=== PATIENT | female | born 1950 | race Caucasian/White ===

== ENCOUNTER 2018-08-20 13:57 | Emergency (ER) | payer OTHER, MEDICAID ==
[~2018-08-20] VITALS: Ht 160 cm; Wt 90.7 kg
[~2018-08-20 13:57] MED LIST: FURO20TA; GABA100C9 PO; HYDR-1421; INSUPOW; LISI2.5T47 PO; TRAM50TA2 PO; TRIAPOW6; [UNRECOGNIZED DRUG - OTHER] PO; nitrostat SL
[2018-08-20 14:35] VITALS: BP 175/96
[2018-08-20] MEDS ORDERED: cefTRIAXone SOD 1,000 MG VL IM ONE (15:00)
[2018-08-20] MEDS ORDERED: TETANUS-DIPTH-ACEL PERTUSSIS 0.5ML SYRG IM ONE (15:00)
[2018-08-20] MEDS ORDERED: ACETAMINOPHEN 500 MG TAB PO ONE (15:30)
== END 2018-08-20 18:02 | disposition home or self-care (01) ==
LOC: ER 14:08
DX: L02.811 Cutaneous abscess of head [any part, except face] (principal); E11.9 Type 2 diabetes mellitus without complications; M19.90 Unspecified osteoarthritis, unspecified site; Z88.0 Allergy status to penicillin; Z79.4 Long term (current) use of insulin
CPT/HCPCS: 10060; 87075; 90471; 90715; 96372; 99283; J0696

== ENCOUNTER 2024-01-05 16:33 | Emergency (ER) | payer OTHER, MEDICAID ==
[~2024-01-05] VITALS: Ht 160 cm; Wt 54.5 kg
[~2024-01-05 16:33] MED LIST changes: +FURO1TAB33; -FURO20TA; +GABA-1308 PO; -GABA100C9 PO
--- NOTE | 2024-01-05 17:11 | ED.PDOC ---
General HPI Comments 73F BIBA w/ no prior HX associated to the c/c of right sided flank pain. Pt reports on the pain for being constant and for 2 months. Pt states that called EMS due from having a kidney infx, and she was also recently in [facility] PMHx of DM, CVA, Seizure, [place], Stent and HTN. Denies chills, fever, N/V/D, SOB, CP or other associated symptoms, modifiers, or recent injuries at this time. Chief Complaint: Flank Pain Time Seen by MD: 17:00 Primary Care Provider: UNKNOWN Reviewed notes: Nurses Notes, Tow Mate Notes, Medications, Allergies Allergies: Coded Allergies: Penicillins (Verified Allergy, 11/15/09) Home Meds Reported Medications Triamcinolone (Triamcinolone) Mcc Pow, 1 % BID 11/17/09 [nitrostat] No Conflict Check, 0.4 MG SL PRN 11/17/09 [aprorodine] No Conflict Check, 2.5 - 60 MG PO TID 11/17/09 Tramadol Hcl (Tramadol Hcl) 50 Mg Tab, 50 MG PO Q6HP 11/17/09 Lisinopril (Lisinopril) 2.5 Mg Tab, 20 MG PO DAILY 11/15/09 Gabapentin (Gabapentin) 100 Mg Cap, 300 MG PO TID 11/15/09 Hydrocodone-Acetaminophen (Vicodin) 1 Tab Tab, Q8HP 11/15/09 Furosemide (Lasix) 20 Mg Tb, QAM 11/15/09 Insulin (Insulin Human) Human Pow 11/15/09 Information Source: Patient Mode of Arrival: EMS Severity: Moderate Timing: Months Duration: Since onset Prehospital treatment: None Onset: Spontaneous Symptoms: None History of: None Location: (R) Flank associated signs and symptoms: Flank Pain Past Medical History PAST MEDICAL HISTORY: CVA, DM, High Lipids, HTN, NJ, Seizures Past Medical History (Other): Stent Surgical History: Denies all surgeries ELECTRICIAN WIRING History: No Pertinent ELECTRICIAN WIRING History Family History Family History: Reviewed,noncontributory to illness, Unknown Social History Smoker: Unknown Alcohol: Unknown Drugs: Unknown Lives In: Home Constitutional: denies: chills, diaphoresis, fatigue, fever, malaise, sweats, weakness, others EENTM: denies: blurred vision, double vision, ear bleeding, ear discharge, ear drainage, ear pain, ear ringing, eye pain, eye redness, hearing loss, mouth pain, mouth swelling, nasal discharge, nose bleeding, nose congestion, nose pain, photophobia, tearing, throat pain, throat swelling, voice changes, others Respiratory: denies: cough, hemoptysis, orthopnea, SOB at rest, shortness of breath, SOB with excertion, stridor, wheezing, others Cardiovascular: denies: chest pain, dizzy spells, diaphoresis, Dyspnea on exertion, edema, irregular heart beat, left arm pain, lightheadedness, palpitations, PND, syncope, others Gastrointestinal: denies: abdomen distended, abdominal pain, blood streaked bowels, constipated, diarrhea, dysphagia, difficulty swallowing, hematemesis, melena, nausea, poor appetite, poor fluid intake, rectal bleeding, rectal pain, vomiting, others Genitourinary: reports: flank pain; denies: abnormal vagina bleeding, burning, dyspareunia, dysuria, frequency, hematuria, incontinence, pain, , vagina discharge, urgency, others Neurological: denies: dizziness, fainting, headache, left sided numbness, left sided weakness, numbness, paresthesia, pre-existing deficit, right sided numbness, right sided weakness, seizure, speech problems, tingling, tremors, weakness, others Musculoskeletal: denies: back pain, gout, joint pain, joint swelling, muscle pain, muscle stiffness, neck pain, others Integumetry: denies: bruises, change in color, change in hair/nails, dryness, laceration, lesions, lumps, rash, wounds, others Allergic/Immunocompromised: denies: Difficulty Healing, Frequent Infections, Hives, Itching, others Hematologic/Lymphatic: denies: anemia, blood clots, easy bleeding, easy bruising, swollen glands, others Endocrine: denies: excessive hunger, excessive sweating, excessive thirst, excessive urination, flushing, intolerance to cold, intolerance to heat, unexplained weight gain, unexplained weight loss, others Psychiatric: denies: anxiety, bipolar disorder, depression, hopeless, panic disorder, schizophrenia, sleepless, suicidal, others All Other Systems: Reviewed and Negative Physical Exam General Appearance: Moderate Distress, Normal HEENT: Normal ENT Inspection, Pharynx Normal, TMs Normal Neck: Full Range of Motion, Non-Tender, Normal, Normal Inspection Respiratory: Chest Non-Tender, Lungs Clear, No Accessory Muscle Use, No Respiratory Distress, Normal Breath Sounds Cardiovascular: No Edema, No JVD, No Murmur, No Gallop, Normal Peripheral P ulses, Regular Rate/Rhythm Breast Exam: Deferred Gastrointestinal: No Organomegaly, Non Tender, No Pulsatile Mass, Normal Bowel Sounds, Soft Genitalia: Deferred Pelvic: Deferred Rectal: Deferred Extremities: Decreased range of motion (Left upper lower extremity), No calf tenderness, Normal capillary refill, Non-tender, No pedal edema Musculoskeletal : Apperance: Normal Neurologic: Alert, Motor Weakness (Left upper lower extremity), Normal Mood, No Sensory Deficits Cerebellar Function: NOT DONE Reflexes: NOT DONE Skin: Dry, Pallor, Warm Peripheral Pulses: 3+ Radial (R), 3+ Radial (L) Lymphatic: No Adenopathy Was a procedure done? Was a procedure done?: No Differential Diagnosis Kidney stone (Female): Musculoskeletal pain, Urinary obstruction, Urolithiasis X-Ray, Labs, Meds, VS Vital Signs Date Time Temp Pulse Resp B/P (MAP) Pulse Ox O2 Delivery O2 Flow Rate FiO2 01/05/24 16:44 98.0 82 18 160/70 (100) 99 Patient alert. Complaining of flank pain. Blood pressure elevated. Saturation pristine on room air. Heart rate within normal limits. Does not ambulate. Was given clonidine. History of CVA. Reviewed her previous visit. Explained to the patient. Continue cardiac monitoring. Time of 1ST Reevaluation: 17:30 Reevaluation 1ST: Unchanged Patient Education/Counseling: Diagnosis, Treatment, Prognosis Family Education/Counseling: No Family Present Departure 1 Departure Time of Disposition: 17:13 Impression: Primary Impression: Acute abdominal pain Additional Impression: Hypertensive urgency Disposition: ADMITTED INPATIENT Admit to: Med Surg Condition: Guarded Critical Care Note Critical Care Time?: Yes (45 min-critical care time only) Stability Stability form required: No Heart Score Heart Score: Heart Score Response (Comments) Value History Slightly Suspicious 0 EKG Normal 0 Age >65 2 Risk Factors >3 or Hx ASHD 2 Troponin Normal limit 0 Total 4 I personally scribed for TERESITA ROSAS MD ([email or web address]) on 01/05/24 at 17:11. Electronically submitted by Billy Martins ([email or web address]). TERESITA ROSAS MD Jan 05, 2024 17:11
[2024-01-05] MEDS: cloNIDine HCL 0.1 MG TAB PO ONE (17:52)
[2024-01-05 18:01] VITALS: BP 167/83; PULSE 69; RESP 18; O2SAT 98
[2024-01-05 18:05] LABS: Basophils # (auto) 0.1 10 ^3/uL (0-0.2); Basophils % (auto) 0.7 % (0.0-2.0); Eosinophils # (auto) 0.3 10 ^3/uL (0-0.8); Eosinophils % (auto) 3.5 % (0.0-7.0); Hematocrit 36.8 % (36.0-46.0); Hemoglobin 12.5 g/dL (12.2-16.2); Lymphocytes # (auto) 3.7 10 ^3/uL (0.4-5.4); Lymphocytes % (auto) 45.5 % (10.0-50.0); Mean Corpuscular Hemoglobin 31.7 pg (28.0-32.0); Mean Corpuscular Volume 93.3 fL (80.0-100.0); Monocytes # (auto) 0.6 10 ^3/uL (0-1.3); Monocytes % (auto) 7.4 % (0.0-12.0); Neutrophils # (auto) 3.5 10 ^3/uL (1.6-8.6); Neutrophils % (auto) 42.9 % (37.0-80.0); Nucleated Red Blood Cells % 0.2 %; Platelet Count (auto) 240 10^3/uL (140-450); Red Blood Cells 3.94 10^6/uL (4.0-5.20); Red Cell Distribution Width 14.1 % (11.8-14.3); White Blood Cell 8.2 10^3/uL (4.4-10.8)
[2024-01-05 18:11] LABS: Chloride 109 mmol/L (98-107); Potassium 4.1 mmol/L (3.5-5.1); Sodium 141 mmol/L (136-145)
[2024-01-05 18:12] LABS: Anion Gap 2 (5-15); Calcium 9.3 mg/dL (8.7-10.4); Carbon Dioxide 30 mmol/L (20-31)
[2024-01-05 18:17] LABS: BUN/Creatinine Ratio 16.1 (10.0-20.0); Blood Urea Nitrogen 20 mg/dL (9-23); Glucose 108 mg/dL (74-106)
== END 2024-01-05 18:44 | disposition left against medical advice (07) ==
LOC: EDBD 16:33 → ER 16:33
DX: I16.0 Hypertensive urgency (principal); R10.9 Unspecified abdominal pain; E11.9 Type 2 diabetes mellitus without complications; E78.5 Hyperlipidemia, unspecified; I10 Essential (primary) hypertension; Z88.0 Allergy status to penicillin; Z79.899 Other long term (current) drug therapy; Z86.73 Personal history of transient ischemic attack (TIA), and cerebral infarction without residual deficits
CPT/HCPCS: 36415; 80048; 84484; 85025

== ENCOUNTER 2024-02-06 07:38 | Emergency (ER) | payer OTHER, MEDICAID ==
[~2024-02-06] VITALS: Ht 167.6 cm; Wt 73.1 kg
--- NOTE | 2024-02-06 08:00 | ED.PDOC ---
Musculoskeletal HPI Comments A 73 YEAR OLD FEMALE PRESENTS TO THE ED WITH COMPLAINT OF PAIN STATUS POST FALL AND RIGHT GREAT TOE PAIN. PATIENT STATES SHE ACCIDENTALLY FELL AND LANDED ON HER RIGHT ARM ABOUT 3 WEEKS AGO AND IS NOW EXPERIENCING RIGHT UPPER ARM PAIN. PATIENT REPORTS SHE ACCIDENTALLY HIT HER RIGHT GREAT TOE ON A DOOR 3 DAYS AGO AND IS NOW EXPERIENCING RIGHT GREAT TOE PAIN. PATIENT DENIES HEAD INJURY, NECK INJURY, LOC, FEVER, CHILLS, SHORTNESS OF BREATH, CHEST PAIN, ABDOMINAL PAIN, NAUSEA, VOMITING, HEADACHE, OR OTHER COMPLAINTS. NO OTHER SYMPTOMS OR MODIFYING FACTORS AT THIS TIME. PATIENT IS ALERT, ORIENTED X 4, AND HAS STEADY GAIT. Chief Complaint: Upper Extremity Time Seen by MD: 07:52 Primary Care Provider: UNKNOWN Reviewed Notes: Nurses Notes, Steam Hammer Operator Notes, Medications, Allergies Allergies: Coded Allergies: Penicillins (Verified Allergy, 11/15/09) Home Meds Reported Medications Triamcinolone (Triamcinolone) Longterm Pow, 1 % BID 11/17/09 [nitrostat] No Conflict Check, 0.4 MG SL PRN 11/17/09 [aprorodine] No Conflict Check, 2.5 - 60 MG PO TID 11/17/09 Tramadol Hcl (Tramadol Hcl) 50 Mg Tab, 50 MG PO Q6HP 11/17/09 Lisinopril (Lisinopril) 2.5 Mg Tab, 20 MG PO DAILY 11/15/09 Gabapentin (Gabapentin) 100 Mg Cap, 300 MG PO TID 11/15/09 Hydrocodone-Acetaminophen (Vicodin) 1 Tab Tab, Q8HP 11/15/09 Furosemide (Lasix) 20 Mg Tb, QAM 11/15/09 Insulin (Insulin Human) Human Pow 11/15/09 Information Source: Patient, Emergency Med Personnel Mode of Arrival: EMS Location: Right Extremity Location: Arm, Foot Timing: Days Prehospital treatment: None Severity: Moderate Able to Move Extremity: Yes Bear Weight: Limited Pain: Moderate Hand Dominance: Right Mechanism: Other (FALL ) Circumstances: Fall Onset of Symptoms: During Exercise Symptoms: Pain DVT Risk Factors: NONE Last Tetanus: UTD Associated signs and symptoms: Arm pain, Foot pain Past Medical History PAST MEDICAL HISTORY: CVA, DM, High Lipids, HTN, PA, Seizures Surgical History: Denies all surgeries SUGAR COATING HAND History: No Pertinent SUGAR COATING HAND History Family History Family History: Reviewed,noncontributory to illness, Unknown Social History Smoker: Non-Smoker, Unknown Alcohol: Denies ETOH Use, Unknown Drugs: Denies Drug Use, Unknown Lives In: Home Constitutional: denies: chills, diaphoresis, fatigue, fever, malaise, sweats, weakness, others EENTM: denies: blurred vision, double vision, ear bleeding, ear discharge, ear drainage, ear pain, ear ringing, eye pain, eye redness, hearing loss, mouth pain, mouth swelling, nasal discharge, nose bleeding, nose congestion, nose pain, photophobia, tearing, throat pain, throat swelling, voice changes, others Respiratory: denies: cough, hemoptysis, orthopnea, SOB at rest, shortness of breath, SOB with excertion, stridor, wheezing, others Cardiovascular: denies: chest pain, dizzy spells, diaphoresis, Dyspnea on exertion, edema, irregular heart beat, left arm pain, lightheadedness, palpitations, PND, syncope, others Gastrointestinal: denies: abdomen distended, abdominal pain, blood streaked bowels, constipated, diarrhea, dysphagia, difficulty swallowing, hematemesis, melena, nausea, poor appetite, poor fluid intake, rectal bleeding, rectal pain, vomiting, others Genitourinary: denies: abnormal vagina bleeding, burning, dyspareunia, dysuria, flank pain, frequency, hematuria, incontinence, pain, , vagina discharge, urgency, others Neurological: denies: dizziness, fainting, headache, left sided numbness, left sided weakness, numbness, paresthesia, pre-existing deficit, right sided numbness, right sided weakness, seizure, speech problems, tingling, tremors, weakness, others Musculoskeletal: reports: joint pain, joint swelling, muscle pain; denies: back pain, gout, muscle stiffness, neck pain, others Integumetry: denies: bruises, change in color, change in hair/nails, dryness, laceration, lesions, lumps, rash, wounds, others Allergic/Immunocompromised: denies: Difficulty Healing, Frequent Infections, Hives, Itching, others Hematologic/Lymphatic: denies: anemia, blood clots, easy bleeding, easy bruising, swollen glands, others Endocrine: denies: excessive hunger, excessive sweating, excessive thirst, excessive urination, flushing, intolerance to cold, intolerance to heat, u nexplained weight gain, unexplained weight loss, others Psychiatric: denies: anxiety, bipolar disorder, depression, hopeless, panic disorder, schizophrenia, sleepless, suicidal, others All Other Systems: Reviewed and Negative Physical Exam General Appearance: No Apparent Distress, Obese HEENT: Normal ENT Inspection, PERRL/EOMI, Pharynx Normal, TMs Normal Neck: Full Range of Motion, Non-Tender, Normal, Normal Inspection Respiratory: Chest Non-Tender, Lungs Clear, No Accessory Muscle Use, No R espiratory Distress, Normal Breath Sounds Cardiovascular: No Edema, No JVD, No Murmur, No Gallop, Normal Peripheral Pulses, Regular Rate/Rhythm Breast Exam: Deferred Gastrointestinal: No Organomegaly, Non Tender, No Pulsatile Mass, Normal Bowel Sounds, Soft Genitalia: Deferred Pelvic: Deferred Rectal: Deferred Extremities: Decreased range of motion, No calf tenderness, Normal capillary refill, No pedal edema, Swelling (TENDERNESS AND MILD SWELLING ON RIGHT FOOT, TOES REGION, NO BONY TENDERNESS AND DEFORMITY. ), Tender (AND MILD CONRUSION ON RIGHT ARM, NO BONY TENDERNESS, SWELLING AND DEFORMITY. ) Musculoskeletal : Apperance: Normal Neurologic: Alert, epidemiology investigator II-XII nml as Tested, No Motor Deficits, Normal Affect, Normal Mood, No Sensory Deficits Cerebellar Function: Normal Reflexes: Normal Skin: Bruises (RIGHT GREAT TOE REGION, NO BONY TENDERNESS, SWELLING AND DEFORMITY. ), Dry, Normal Color, Warm Peripheral Pulses: 2+ carotid (R), 2+ carotid (L), 2+ dorsalis pedis (R), 2+ dorsalis pedis (L) Lymphatic: No Adenopathy Was a procedure done? Was a procedure done?: No Differential Diagnosis EXT Differential Diagnosis: Fracture, Sprain, Contusion, Strain, Bursitis X-Ray, Labs, Meds, VS Vital Signs Date Time Temp Pulse Resp B/P (MAP) Pulse Ox O2 Delivery O2 Flow Rate FiO2 02/06/24 08:13 61 16 99 Room Air 02/06/24 08:13 98.3 61 16 137/86 (103) 99 98.3 02/06/24 07:44 98.3 61 16 137/86 (103) 99 CLINICAL INDICATION: HIT THE DOOR 3 DAYS TECHNIQUE: XY R FOOT 3 VIEW XRAY Comparison: None FINDINGS/IMPRESSION: There is no evidence of acute fracture or dislocation. The visualized joint space is well maintained. The alignment is anatomical. There is no radiopaque foreign body. ATED BY: ZIYAD RKUSE MD DICTATED DATE/TIME: 02/06/24910 SIGNED BY: ZIYAD KRUSE MD SIGNED DATE/TIME: 02/06/24910 CC: CLINICAL INDICATION: FALL X 3 WEEKS AGO TECHNIQUE: XY R HUMERUS XRAY, 2 views Comparison: None FINDINGS/IMPRESSION: There is no evidence of acute fracture or dislocation. The visualized joint space is well maintained. The alignment is anatomical. There is no radiopaque foreign body. ATED BY: ZIYAD KRUSE MD DICTATED DATE/TIME: 02/06/24910 SIGNED BY: ZIYAD KRUSE MD SIGNED DATE/TIME: 02/06/24910 CC: X-Ray, Labs, Meds, VS Comment EXTERNAL MEDICAL RECORDS REVIEWED: [NONE] INDEPENDENT HISTORIANS: [NONE] SOCIAL DETERMINANTS OF HEALTH: [NONE] LABS ORDERED: NONE REVIEWED AND INTERPRETED RESULTS: NONE IMAGING ORDERED: XR HUMERUS RT, XR FOOT RT TREATMENTS ORDERED: NORCO 5/325MG PO PROCEDURES PERFORMED: NONE CRITICAL CARE TIME: NONE I HAVE DISCUSSED THE PATIENT WITH THE ATTENDING PHYSICIAN DR. ROSAS AND HE AGREES WITH THE PATIENT'S PLAN OF CARE AND DISPOSITION. GIVEN THE HISTORY AND PRESENT ILLNESS OF THE PATIENT, AFTER REVIEWING LABS, IMAGING, AND COURSE OF TREATMENT ADMINISTERED DURING THEIR ED VISIT, THERE IS LOW SUSPICION FOR RED FLAG FINDINGS. BASED ON HISTORY OF PRESENT ILLNESS, AND PHYSICAL EXAM, PATIENT WILL BE DISCHARGED HOME. SHARED DECISION MAKING: DISCUSSED WITH PATIENT THAT THEIR WORKUP WAS NORMAL. PATIENT INSTRUCTED TO FOLLOW UP WITH PRIMARY CARE PROVIDER IN 1-2 DAYS FOR RE- EVALUATION OF SYMPTOMS. PATIENT VERBALIZES UNDERSTANDING TO RETURN TO ED FOR NEW OR WORSENING SYMPTOMS OR IF FOLLOW UP WITH PCP CANNOT BE OBTAINED. PATIENT FEELS COMFORTABLE GOING HOME AT THIS TIME. ALL QUESTIONS ADDRESSED AT TIME OF DISCHARGE. Images Reviewed?: Images reviewed and evaluated by me Time of 1ST Reevaluation: 09:30 Reevaluation 1ST: Improved Patient Education/Counseling: Diagnosis, Treatment, Need For Follow Up Family Education/Counseling: Diagnosis, Treatment, Need For Follow Up Medical Screening: No EMC Exist At This Time Departure 1 Departure Time of Disposition: 09:40 Impression: Primary Impression: Muscle strain of right upper arm Qualified Codes: S46.911A - Strain of unspecified muscle, fascia and tendon at shoulder and upper arm level, right arm, initial encounter Additional Impression: Contusion of right foot Qualified Codes: S90.31XA - Contusion of right foot, initial encounter Disposition: HOME / SELF CARE / HOMELESS Condition: Stable Additional Instructions: FOLLOW-UP WITH PCP IN 1 TO 2 DAYS. TAKE MEDICATIONS PRESCRIBED. RETURN TO ED FOR ANY NEW OR WORSENING SYMPTOMS. e-Prescriptions Acetaminophen (Tylenol 8 Hour Arthritis) 650 Mg Tab 650 MG PO TID, #30 TAB Prov: JENNY OAKLEY 02/06/24 Discharged With: Self Critical Care Note Critical Care Time?: No Stability Stability form required: No I personally scribed for JENNY OAKLEY ([email or web address]) on 02/06/24 at 08:00. Electronically submitted by Todd Martinez ([employer]). I personally scribed for JENNY OAKLEY PA ([email or web address]) on 02/06/24 at 08:22. Electronically submitted by Todd Martinez ([employer]). I personally scribed for JENNY OAKLEY PA ([email or web address]) on 02/06/24 at 08:32. Electronically submitted by Todd Martinez ([employer]). I personally scribed for JENNY OAKLEY PA ([email or web address]) on 02/06/24 at 09:09. Electronically submitted by Todd Martinez ([employer]). I personally scribed for KEYSHAWN OAKLEYA PA ([email or web address]) on 02/06/24 at 09:18. Electronically submitted by Todd Martinez ([employer]). I personally scribed for KEYSHAWN OAKLEYA PA ([email or web address]) on 02/06/24 at 09:19. Electronically submitted by Todd Martinez ([employer]). JENNY OAKLEY Feb 06, 2024 08:00
[2024-02-06 08:13] VITALS: BP 137/86; PULSE 61; RESP 16; TEMP 98.3; O2SAT 99
--- NOTE | 2024-02-06 09:13 | DVH ---
CLINICAL INDICATION: FALL X 3 WEEKS AGO TECHNIQUE: XY R HUMERUS XRAY, 2 views Comparison: None FINDINGS/IMPRESSION: There is no evidence of acute fracture or dislocation. The visualized joint space is well maintained. The alignment is anatomical. There is no radiopaque foreign body.
--- NOTE | 2024-02-06 09:14 | DVH ---
CLINICAL INDICATION: HIT THE DOOR 3 DAYS TECHNIQUE: XY R FOOT 3 VIEW XRAY Comparison: None FINDINGS/IMPRESSION: There is no evidence of acute fracture or dislocation. The visualized joint space is well maintained. The alignment is anatomical. There is no radiopaque foreign body.
[2024-02-06] MEDS ORDERED: ACET-1080 PO (09:24)
[2024-02-06] MEDS: HYDROcodone-ACET 5/325MG TAB PO ONE (09:57)
== END 2024-02-06 10:04 | disposition home or self-care (01) ==
LOC: ER 07:38 → EDBD 07:38 → ER 10:04
DX: S46.911A Strain of unspecified muscle, fascia and tendon at shoulder and upper arm level, right arm, initial encounter (principal); S90.31XA Contusion of right foot, initial encounter; I10 Essential (primary) hypertension; E11.9 Type 2 diabetes mellitus without complications; I25.2 Old myocardial infarction; E78.5 Hyperlipidemia, unspecified; Z86.73 Personal history of transient ischemic attack (TIA), and cerebral infarction without residual deficits; Z88.0 Allergy status to penicillin; Z79.899 Other long term (current) drug therapy; W22.09XA Striking against other stationary object, initial encounter; Y93.89 Activity, other specified; Y92.89 Other specified places as the place of occurrence of the external cause; Y99.8 Other external cause status
CPT/HCPCS: 73060; 73630

== ENCOUNTER 2024-03-16 06:11 | Inpatient (IN) | payer OTHER, MEDICAID ==
[~2024-03-16] VITALS: Ht 162.6 cm; Wt 76.0 kg
[~2024-03-16 06:11] MED LIST changes: +ACET-1080 PO
--- NOTE | 2024-03-16 06:49 | ED.PDOC ---
General HPI Comments 73 year old female brought in by EMS presents to the ED with a chief complaint of LT flank pain onset 1 week. Patient states she has been experiencing LT flank pain that radiates to her back for the past month but worsen today. Patient also noticed urine frequency. PMHx of seizure, CVA, MT, DM, HTN, HLD. Denies chest pain, shortness of breath, dysuria, hematuria, dizziness, abdominal pain, nausea, vomiting, diarrhea. No other symptoms or modifying factors present at this time. Chief Complaint: Flank Pain Time Seen by MD: 06:35 Primary Care Provider: UNKNOWN Reviewed notes: Medications, Allergies Allergies: Coded Allergies: Penicillins (Verified Allergy, Unknown, 03/16/24) Home Meds Active Scripts Acetaminophen (Tylenol 8 Hour Arthritis) 650 Mg Tab, 650 MG PO TID, #30 TAB Prov:JENNY OAKLEY 02/06/24 Reported Medications Triamcinolone (Triamcinolone) Correction Pow, 1 % BID 11/17/09 [nitrostat] No Conflict Check, 0.4 MG SL PRN 11/17/09 [aprorodine] No Conflict Check, 2.5 - 60 MG PO TID 11/17/09 Tramadol Hcl (Tramadol Hcl) 50 Mg Tab, 50 MG PO Q6HP 11/17/09 Lisinopril (Lisinopril) 2.5 Mg Tab, 20 MG PO DAILY 11/15/09 Gabapentin (Gabapentin) 100 Mg Cap, 300 MG PO TID 11/15/09 Hydrocodone-Acetaminophen (Vicodin) 1 Tab Tab, Q8HP 11/15/09 Furosemide (Lasix) 20 Mg Tb, QAM 11/15/09 Insulin (Insulin Human) Human Pow 11/15/09 Information Source: Patient, Emergency Med Personnel Mode of Arrival: EMS Severity: Moderate Timing: Months Duration: Since onset Prehospital treatment: None Onset: Spontaneous Symptoms: Frequency History of: None Location: (L)Flank Modifying factors: None associated signs and symptoms: Flank Pain, Back Pain, Frequency Past Medical History PAST MEDICAL HISTORY: CVA, DM, High Lipids, HTN, MT, Seizures Surgical History: Denies all surgeries 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 Family History Family History: Reviewed,noncontributory to illness, Unknown Social History Smoker: Non-Smoker, Unknown Alcohol: Denies ETOH Use, Unknown Drugs: Denies Drug Use, Unknown Lives In: Home Constitutional: denies: chills, diaphoresis, fatigue, fever, malaise, sweats, weakness, others EENTM: denies: blurred vision, double vision, ear bleeding, ear discharge, ear drainage, ear pain, ear ringing, eye pain, eye redness, hearing loss, mouth pain, mouth swelling, nasal discharge, nose bleeding, nose congestion, nose pain, photophobia, tearing, throat pain, throat swelling, voice changes, others Respiratory: denies: cough, hemoptysis, orthopnea, SOB at rest, shortness of breath, SOB with excertion, stridor, wheezing, others Cardiovascular: denies: chest pain, dizzy spells, diaphoresis, Dyspnea on exertion, edema, irregular heart beat, left arm pain, lightheadedness, palpitations, PND, syncope, others Gastrointestinal: denies: abdomen distended, abdominal pain, blood streaked bowels, constipated, diarrhea, dysphagia, difficulty swallowing, hematemesis, melena, nausea, poor appetite, poor fluid intake, rectal bleeding, rectal pain, vomiting, others Genitourinary: reports: flank pain, frequency; denies: abnormal vagina bleeding, burning, dyspareunia, dysuria, hematuria, incontinence, pain, , vagina discharge, urgency, others Neurological: denies: dizziness, fainting, headache, left sided numbness, left sided weakness, numbness, paresthesia, pre-existing deficit, right sided numbness, right sided weakness, seizure, speech problems, tingling, tremors, weakness, others Musculoskeletal: reports: back pain; denies: gout, joint pain, joint swelling, muscle pain, muscle stiffness, neck pain, others Integumetry: denies: bruises, change in color, change in hair/nails, dryness, laceration, lesions, lumps, rash, wounds, others Allergic/Immunocompromised: denies: Difficulty Healing, Frequent Infections, Hives, Itching, others Hematologic/Lymphatic: denies: anemia, blood clots, easy bleeding, easy bruising, swollen glands, others Endocrine: denies: excessive hunger, excessive sweating, excessive thirst, excessive urination, flushing, intolerance to cold, intolerance to heat, unexplained weight gain, unexplained weight loss, others Psychiatric: denies: anxiety, bipolar disorder, depression, hopeless, panic disorder, schizophrenia, sleepless, suicidal, others All Other Systems: Reviewed and Negative Physical Exam General Appearance: Moderate Distress, Obese HEENT: Normal ENT Inspection, PERRL/EOMI Neck: Full Range of Motion, Non-Tender Respiratory: Lungs Clear, No Respiratory Distress, Normal Breath Sounds Cardiovascular: No Edema, No JVD, No Murmur, No Gallop, Normal Peripheral Pulses, Regular Rate/Rhythm Breast Exam: Deferred Gastrointestinal: No Organomegaly, Non Tender, No Pulsatile Mass, Normal Bowel Sounds, Soft Genitalia: Deferred Pelvic: Deferred Rectal: Deferred Extremities: No calf tenderness, Normal capillary refill, Normal inspection, Normal range of motion, Non-tender, No pedal edema Neurologic: Depressed Affect, Motor Weakness, Seizure Cerebellar Function: NOT DONE Reflexes: NOT DONE Skin: Dry, Normal Color, Warm Peripheral Pulses: 1+ carotid (R), 1+ carotid (L) Lymphatic: No Adenopathy Was a procedure done? Was a procedure done?: No EKG EKG : Pulse Rate (adult): 60 [place]: Normal Cardiac Rhythm: NSR Differential Diagnosis Kidney stone (Female): DJD, Musculoskeletal pain, Pyelonephritis, Urinary obstruction, Urolithiasis Kidney stone (Male): N/A Penile/Scrotal: N/A Urinary Problem (Male): N/A Urinary Problem (Female): Pyelonephritis, Urolithiasis, UTI X-Ray, Labs, Meds, VS Vital Signs Date Time Temp Pulse Resp B/P (MAP) Pulse Ox O2 Delivery O2 Flow Rate FiO2 03/16/24 12:00 91 18 127/93 (104) 93 03/16/24 10:00 6 18 122/56 (78) 98 03/16/24 09:36 54 18 111/57 (75) 100 03/16/24 09:14 68 17 133/68 03/16/24 08:29 68 17 138/66 03/16/24 07:42 60 03/16/24 07:27 68 16 100 Room Air* 0 21 03/16/24 07:27 98.8 68 16 136/56 (82) 100 98.8 03/16/24 06:32 98.8 64 16 120/65 (83) 98 03/16/24 06:26 60 Lab Test 03/16/24 12:10 03/16/24 08:00 03/16/24 07:24 Range/Units Troponin I High Sensitivity Pending 13 </=34 ng/L Urine Color Light yellow Yellow Urine Clarity Ex.turbid Clear Urine pH 6.0 5.0-9.0 Urine Specific [place] 1.009 1.001-1.035 Urine Protein 2+ H Negative Urine Ketones Negative Negative Urine Blood 2+ H Negative /uL Urine Nitrite Negative Negative Urine Bilirubin Negative Negative Urine Urobilinogen Normal Negative mg/dL Urine Leukocyte Esterase 3+ Negative /uL Urine RBC 13 0 - 4 /hpf Urine WBC 1380 0 - 5 /hpf Urine WBC Clumps Present None Seen /hpf Urine Squamous Epithelial Cells Few <5 /hpf Urine Bacteria Many H None Seen /hpf Urine Glucose Normal Normal mg/dL White Blood Count 8.7 4.4-10.8 10^3/uL Red Blood Count 4.11 4.0-5.20 10^6/uL Hemoglobin 12.4 12.2-16.2 g/dL Hematocrit 37.2 36.0-46.0 % Mean Corpuscular Volume 90.5 80.0-100.0 fL Mean Corpuscular Hemoglobin 30.2 28.0-32.0 pg Mean Corpuscular Hemoglobin Concent 33.3 32.0-36.0 g/dL Red Cell Distribution Width 13.8 11.8-14.3 % Platelet Count 375 140-450 10^3/uL Mean Platelet Volume 9.2 6.9-10.8 fL Neutrophils (%) (Auto) 64.3 37.0-80.0 % Lymphocytes (%) (Auto) 25.1 10.0-50.0 % Monocytes (%) (Auto) 7.6 0.0-12.0 % Eosinophils (%) (Auto) 1.9 0.0-7.0 % Basophils (%) (Auto) 1.1 0.0-2.0 % Neutrophils # (Auto) 5.6 1.6-8.6 10 ^3/uL Lymphocytes # (Auto) 2.2 0.4-5.4 10 ^3/uL Monocytes # (Auto) 0.7 0-1.3 10 ^3/uL Eosinophils # (Auto) 0.2 0-0.8 10 ^3/uL Basophils # (Auto) 0.1 0-0.2 10 ^3/uL Nucleated Red Blood Cells 0.0 % Sodium Level 139 136-145 mmol/L Potassium Level 4.0 3.5-5.1 mmol/L Chloride Level 106 98-107 mmol/L Carbon Dioxide Level 27 20-31 mmol/L Anion Gap 6 5-15 Blood Urea Nitrogen 25 H 9-23 mg/dL Creatinine 1.62 H 0.550-1.02 mg/dL Glomerular Filtration Rate Calc 33 >90 mL/min BUN/Creatinine Ratio 15.4 10.0-20.0 Serum Glucose 129 H 74-106 mg/dL Calcium Level 9.6 8.7-10.4 mg/dL Magnesium Level 2.2 1.6-2.6 mg/dL Total Bilirubin 0.5 0.2-1.0 mg/dL Aspartate Amino Transferase (AST) 9 L 13-40 U/L Alanine Aminotransferase (ALT) < 9 7-40 U/L Alkaline Phosphatase 97 46-116 U/L Total Protein 7.5 5.7-8.2 g/dL Albumin 4.1 3.2-4.8 g/dL Lipase 33 12-53 U/L Current Medications Medications (Trade) Dose Ordered Sig/Solis Route Start Time Stop Time Status Last Admin Hydromorphone HCl (Dilaudid Injection) 0.5 mg ONCE ONCE IV 03/16/24 07:00 03/16/24 07:01 DC 03/16/24 08:29 Sodium Chloride 500 ml @ 500 mls/hr Q1H ONCE IVB 03/16/24 07:00 03/16/24 07:59 DC 03/16/24 07:46 Sodium Chloride 1,000 ml @ 150 mls/hr Q6H40M ONCE IV 03/16/24 07:00 03/16/24 13:39 03/16/24 07:[address] [address] Ph: [phone] DIAGNOSTIC IMAGING Diagnostic Imaging Report : [id number] Signed PATIENT: OTTO MCCABE ACCT: [id number] UNIT: [id number] : 1950 LOC: ER ROOM / BED: / AGE / SEX: 73 / F ADM STATUS: REG ER SERVICE 0651 ORDERING PHYSICIAN: KAREN GURROLA MD PROCEDURE(s): CXR1 - CHEST XRAY 1 VIEW REASON: CAD DIABETES FLANK PAIN ORDER NUMBER(s): [id number], ACCESSION NUMBER(s): [id number] CHEST RADIOGRAPH Indication: CAD DIABETES FLANK PAIN Technique: Single frontal view of the chest was obtained Comparison: None FINDINGS: Lines and Tubes: None Lungs: No focal consolidation. Pleura: No effusion. No pneumothorax. Cardiomediastinal contours: Unremarkable Bones: No acute osseous abnormality. IMPRESSION: 1. No acute cardiopulmonary disease. ATED BY: ROSA GARCIA MD DICTATED DATE/TIME: 03/16/24735 SIGNED BY: ROSA GARCIA MD SIGNED DATE/TIME: 03/16/24735 CC: X-Ray, Labs, Meds, VS Comment SEEN IN THE EMERGENCY DEPARTMENT PATIENT PRESENTED WITH SEVERE LEFT FLANK PAIN SHE HAS A HISTORY OF DIABETES ANGINA MT AND SEIZURE DISORDER CHEST X-RAY IS NORMAL EKG SHOWS NORMAL SINUS RHYTHM AT 60 CBC IS NORMAL URINE SHOWS 2+ PROTEIN 2+ BLOOD 3+ LEUKOCYTE ESTERASE WITH BACTERIA AND AND WHITE BC CLUMPS TROPONIN 13 GFR 33 BLOOD SUGAR 129 MAGNESIUM 2.2 LIPASE 33 PATIENT WILL BE ADMITTED FOR FURTHER CARE Time of 1ST Reevaluation: 07:05 Reevaluation 1ST: Unchanged Time of 2ND Reevaluation: 12:41 Reevaluation 2ND: Unchanged Patient Education/Counseling: Diagnosis, Treatment, Prognosis Family Education/Counseling: Diagnosis, Treatment, Prognosis, No Family Present Additional Information The following tests were ordered, and results were reviewed by me: TROP -x3, CBC, CMP, LIPASE, UA, MAGNESIUM, XY CHEST 2 VIEWS, EKG, XY CHEST Additional Information was gathered from interviewing the following independent historians: EMS I reviewed and agreed with the following test results read by other providers: XY CHEST 2 VIEWS, XY CHEST I discussed treatment and results with medical personnel and patient Departure 1 Departure Time of Disposition: 12:44 Impression: Primary Impression: Left flank pain Additional Impressions: Pyelonephritis Diabetic nephropathy Qualified Codes: E11.21 - Type 2 diabetes mellitus with diabetic nephropathy History of myocardial infarction History of seizure disorder Disposition: ADMITTED INPATIENT Admit to: [facility] Condition: Fair Critical Care Note Critical Care Time?: No Stability Stability form required: Yes Unstable for transfer: Telemetry monitoring (Telemetry monitoring required), Requires medication (Requires Med for stabilization) Heart Score Heart Score: Heart Score Response (Comments) Value History N/A 0 EKG Normal 0 Age >65 2 Risk Factors >3 or Hx ASHD 2 Troponin Normal limit 0 Total 4 I personally scribed for KAREN GURROLA MD ([email or web address]) on 03/16/24 at 06:48. Electronically submitted by Stefanie Alonso ([email or web address]). I personally scribed for KAREN GURROLA MD ([email or web address]) on 03/16/24 at 10:06. Electronically submitted by Stefanie Alonso ([email or web address]). KAREN GURROLA MD Mar 16, 2024 06:48
[2024-03-16 07:27] VITALS: PULSE 68; RESP 16; O2SAT 100
--- NOTE | 2024-03-16 07:38 | DVH ---
CHEST RADIOGRAPH Indication: CAD DIABETES FLANK PAIN Technique: Single frontal view of the chest was obtained Comparison: None FINDINGS: Lines and Tubes: None Lungs: No focal consolidation. Pleura: No effusion. No pneumothorax. Cardiomediastinal contours: Unremarkable Bones: No acute osseous abnormality. IMPRESSION: 1. No acute cardiopulmonary disease.
[2024-03-16 07:43] LABS: Basophils # (auto) 0.1 10 ^3/uL (0-0.2); Basophils % (auto) 1.1 % (0.0-2.0); Eosinophils # (auto) 0.2 10 ^3/uL (0-0.8); Eosinophils % (auto) 1.9 % (0.0-7.0); Hematocrit 37.2 % (36.0-46.0); Hemoglobin 12.4 g/dL (12.2-16.2); Lymphocytes # (auto) 2.2 10 ^3/uL (0.4-5.4); Lymphocytes % (auto) 25.1 % (10.0-50.0); Mean Corpuscular Hemoglobin 30.2 pg (28.0-32.0); Mean Corpuscular Hgb Conc. 33.3 g/dL (32.0-36.0); Mean Corpuscular Volume 90.5 fL (80.0-100.0); Monocytes # (auto) 0.7 10 ^3/uL (0-1.3); Monocytes % (auto) 7.6 % (0.0-12.0); Neutrophils # (auto) 5.6 10 ^3/uL (1.6-8.6); Neutrophils % (auto) 64.3 % (37.0-80.0); Platelet Count (auto) 375 10^3/uL (140-450); Red Blood Cells 4.11 10^6/uL (4.0-5.20); Red Cell Distribution Width 13.8 % (11.8-14.3); White Blood Cell 8.7 10^3/uL (4.4-10.8)
[2024-03-16] MEDS: SODIUM CHLORIDE 0.9% 500 ML IVB ONE (07:46)
[2024-03-16] MEDS: SODIUM CHLORIDE 0.9% 1,000 ML IV ONE (07:46)
[2024-03-16 08:13] LABS: Albumin 4.1 g/dL (3.2-4.8); Alkaline Phosphatase 97 U/L (46-116); Anion Gap 6 (5-15); BUN/Creatinine Ratio 15.4 (10.0-20.0); Calcium 9.6 mg/dL (8.7-10.4); Carbon Dioxide 27 mmol/L (20-31); Chloride 106 mmol/L (98-107); Magnesium 2.2 mg/dL (1.6-2.6); Sodium 139 mmol/L (136-145)
[2024-03-16 08:14] LABS: Alanine Aminotransferase < 9 U/L (7-40); Aspartate Aminotransferase 9 U/L (13-40); Bilirubin, Total 0.5 mg/dL (0.2-1.0); Blood Urea Nitrogen 25 mg/dL (9-23); Glucose 129 mg/dL (74-106); Total Protein 7.5 g/dL (5.7-8.2)
[2024-03-16] MEDS: HYDROmorphone HCL 2 MG/ML VL/or syr IV ONE (08:29)
[2024-03-16 08:34] LABS: Lipase 33 U/L (12-53)
[2024-03-16 09:20] LABS: Urine Bacteria MANY /hpf (None Seen); Urine Blood 2+ /uL (Negative); Urine Clarity Ex.Turbid (Clear); Urine Protein, UAD 2+ (Negative); Urine Specific Gravity 1.009 (1.001-1.035); Urine Squamous Epithelial Cell FEW /hpf (<5); Urine Urobilinogen Normal (Negative); Urine WBC 1380 /hpf (0 - 5); Urine WBC Clumps PRESENT /hpf (None Seen)
[2024-03-16 09:21] LABS: Urine Color Light Yellow (Yellow)
--- NOTE | 2024-03-16 09:36 | ECG ---
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
[2024-03-16] MEDS: cefTRIAXone 1GM/50ML D5W 50 ML IV ONE (14:00)
[2024-03-16] MEDS ORDERED: NITROGLYCERIN 0.4 MG SL TAB SL PRN ×2 (15:45→16:00)
[2024-03-16] MEDS ORDERED: HYDROcodone-ACET 5/325MG TAB PO PRN (15:45)
[2024-03-16] MEDS ORDERED: ONDANSETRON HCL 4 MG/2 ML VIAL IV PRN ×2 (15:45→16:00)
[2024-03-16] MEDS ORDERED: DEXTROSE (50%) 50ML SYRG IV PRN ×2 (15:45→16:00)
[2024-03-16] MEDS ORDERED: DOCUSATE SOD 100 MG CAP PO PRN ×2 (15:45→16:00)
[2024-03-16] MEDS ORDERED: SODIUM CHLORIDE 0.9% 1,000 ML IV SCH (15:45)
[2024-03-16] MEDS ORDERED: ACETAMINOPHEN 325 MG TAB PO PRN (15:45)
[2024-03-16] MEDS ORDERED: MORPHINE SULFATE INJ 2 MG/ml SYRG IV PRN ×2 (15:45→16:00)
--- NOTE | 2024-03-16 15:47 | DVHHP2 ---
History of Present Illness Reason for Visit: Urinary tract infection History of Present Illness The patient is a 73-year-old female with multiple past medical history including CVA, DM, and hypertension who presented to [facility] ED with complaint of left flank for 1 week duration. Patient reports symptoms progressively get worse with radiating left flank pain to her back, rating 7/10 numeric scale, getting worse that prompted this visit. Patient was seen and evaluated in the ED, laboratory data shows WBC 8.7, platelets 375, sodium 139, potassium 4.0, BUN 25, creatinine 1.62, GFR 33, glucose 129, troponin 12, lipase 33. Urinalysis positive for urinary tract infection. Patient was started on IV antibiotic regimen levofloxacin, please see medication orders section in the computer. On my assessment, patient denied chest pain, no dizziness, no headache, no shortness of breath, no diarrhea, no nausea, no vomiting, fever, no chills. Patient was admitted for further evaluation and medical management. Past Medical History CVA, DM, High Lipids, HTN, NC, Seizures Past Surgical History Denies all surgeries Family History Reviewed, noncontributory to the management of this case. Past Social History The patient lives at home, denies smoking, alcohol or illicit drugs abuse. Review of Systems Constitutional: Yes: Weakness; No: Fever, Chills, Sweats, Malaise, Other Eyes: Other (Blurry vision); No: Pain, Vision change, Conjunctivae inflammation, Eyelid inflammation, Redness ENT: No: Ear pain, Ear discharge, Nose pain, Nose discharge, Nose congestion, Mouth pain, Mouth swelling, Throat pain, Throat swelling, Other Respiratory: No: Cough, Dry, Shortness of breath, SOB with excertion, Wheezing, Hemoptysis, Pleuritic Pain, Sputum, Wheezing, Other Cardiovascular: No: Chest Pain, Palpitations, Orthopnea, Paroxysmal Noc. Dyspnea, Edema, Lt Headedness, Other Gastrointestinal: No: Nausea, Vomiting, Abdominal Pain, Diarrhea, Constipation, Melena, Hematochezia, Other Genitourinary: No Dysuria; Frequency; No Incontinence, No Hematuria, No Retention; Other (Left flank pain) Musculoskeletal: back pain; No: other, neck pain, shoulder pain, arm pain, hand pain, leg pain, foot pain Skin: No: Rash, Lesions, Jaundice, Bruising, Other Neurological: No: Weakness, Numbness, Incoordination, Change in speech, Confusion, Seizures, Other Allergies: Coded Allergies: Penicillins (Verified Allergy, Unknown, 03/16/24) Exam Vital Signs Vital Signs Date Time Temp Pulse Resp B/P (MAP) Pulse Ox O2 Delivery O2 Flow Rate FiO2 03/16/24 12:00 91 18 127/93 (104) 93 03/16/24 07:27 Room Air* 0 21 03/16/24 07:27 98.8 98.8 General Appearance: Alert, Oriented X3, Cooperative, No acute distress HEENT: Atraumatic, EOMI, Mucous membr. moist/pink, Other (Blurry vision) Respiratory: Clear to auscultation, Normal air movement Cardiovascular: Regular rate, Normal S1, Normal S2, No murmurs Abdominal: Normal bowel sounds, Soft, No tenderness, No hepatospenomegaly, No masses Extremities: No clubbing, No cyanosis, No edema, Normal pulses, No tenderness/swelling Skin: No rashes, No breakdown, No significant lesion Neuro: Normal gait, Strength at 5/5 X4 ext, Normal tone, Sensation intact, Cranial nerves 3-12 NL, Reflexes 2+ Psych/Mental Status: Mental status NL, Mood NL Labs/Xrays Labs Test 03/16/24 15:30 03/16/24 08:00 03/16/24 07:24 Range/Units Urine Color Light yellow Yellow Urine Clarity Ex.turbid Clear Urine pH 6.0 5.0-9.0 Urine Specific [place] 1.009 1.001-1.035 Urine Protein 2+ H Negative Urine Ketones Negative Negative Urine Blood 2+ H Negative /uL Urine Nitrite Negative Negative Urine Bilirubin Negative Negative Urine Urobilinogen Normal Negative mg/dL Urine Leukocyte Esterase 3+ Negative /uL Urine RBC 13 0 - 4 /hpf Urine WBC 1380 0 - 5 /hpf Urine WBC Clumps Present None Seen /hpf Urine Squamous Epithelial Cells Few <5 /hpf Urine Bacteria Many H None Seen /hpf Urine Glucose Normal Normal mg/dL White Blood Count 8.7 4.4-10.8 10^3/uL Red Blood Count 4.11 4.0-5.20 10^6/uL Hemoglobin 12.4 12.2-16.2 g/dL Hematocrit 37.2 36.0-46.0 % Mean Corpuscular Volume 90.5 80.0-100.0 fL Mean Corpuscular Hemoglobin 30.2 28.0-32.0 pg Mean Corpuscular Hemoglobin Concent 33.3 32.0-36.0 g/dL Red Cell Distribution Width 13.8 11.8-14.3 % Platelet Count 375 140-450 10^3/uL Mean Platelet Volume 9.2 6.9-10.8 fL Neutrophils (%) (Auto) 64.3 37.0-80.0 % Lymphocytes (%) (Auto) 25.1 10.0-50.0 % Monocytes (%) (Auto) 7.6 0.0-12.0 % Eosinophils (%) (Auto) 1.9 0.0-7.0 % Basophils (%) (Auto) 1.1 0.0-2.0 % Neutrophils # (Auto) 5.6 1.6-8.6 10 ^3/uL Lymphocytes # (Auto) 2.2 0.4-5.4 10 ^3/uL Monocytes # (Auto) 0.7 0-1.3 10 ^3/uL Eosinophils # (Auto) 0.2 0-0.8 10 ^3/uL Basophils # (Auto) 0.1 0-0.2 10 ^3/uL Nucleated Red Blood Cells 0.0 % Sodium Level 139 136-145 mmol/L Potassium Level 4.0 3.5-5.1 mmol/L Chloride Level 106 98-107 mmol/L Carbon Dioxide Level 27 20-31 mmol/L Anion Gap 6 5-15 Blood Urea Nitrogen 25 H 9-23 mg/dL Creatinine 1.62 H 0.550-1.02 mg/dL Glomerular Filtration Rate Calc 33 >90 mL/min BUN/Creatinine Ratio 15.4 10.0-20.0 Serum Glucose 129 H 74-106 mg/dL Calcium Level 9.6 8.7-10.4 mg/dL Magnesium Level 2.2 1.6-2.6 mg/dL Total Bilirubin 0.5 0.2-1.0 mg/dL Aspartate Amino Transferase (AST) 9 L 13-40 U/L Alanine Aminotransferase (ALT) < 9 7-40 U/L Alkaline Phosphatase 97 46-116 U/L Total Protein 7.5 5.7-8.2 g/dL Albumin 4.1 3.2-4.8 g/dL Lipase 33 12-53 U/L PATIENT: OTTO MCCABE ACCT: [id number] UNIT: [id number] : 1950 LOC: ER ROOM / BED: / AGE / SEX: 73 / F ADM STATUS: REG ER SERVICE 0651 ORDERING PHYSICIAN: KAREN GURROLA MD PROCEDURE(s): CXR1 - CHEST XRAY 1 VIEW REASON: CAD DIABETES FLANK PAIN ORDER NUMBER(s): [id number], ACCESSION NUMBER(s): [id number] CHEST RADIOGRAPH Indication: CAD DIABETES FLANK PAIN Technique: Single frontal view of the chest was obtained Comparison: None FINDINGS: Lines and Tubes: None Lungs: No focal consolidation. Pleura: No effusion. No pneumothorax. Cardiomediastinal contours: Unremarkable Bones: No acute osseous abnormality. IMPRESSION: 1. No acute cardiopulmonary disease. Assessment/Plan Assessment/Plan Left flank pain Acute renal injury Generalized weakness Urinary tract infection Diabetic nephropathy Type 2 diabetes mellitus with diabetic nephropathy Plan 1. Admit to med surge unit 2. Breathing treatment 3. Pain control management 4. IV antibiotic management 5. Management of fluids and electrolytes 6. Consultation for hospitalist 7. Diagnostic test chest x-ray 8. DVT prophylaxis-on SCDs 9. Repeat labs CBC, CMP in a.m. 10. Home medication reviewed and reconciled 11. Continue with current medical management 12. Treatment plan discussed with patient and RN. Patient verbalized un derstanding. Plan discussed with: Patient, Other (RN) My Orders Orders - JARET RIVAS DNP Procedure Category Date Status Time Consistent DIET 03/16/24 Transmitted Carb(Ccho)Diabetes Dinner Levofloxacin Levaquin PHA 03/17/24 Transmitted 10:00 Urine Bacterial ANISHA 03/16/24 Transmitted Culture 15:38 Glucose Blood PHA 03/16/24 Transmitted (Accu-Chek Comfort 17:00 Mild Sliding Scale PHA 03/16/24 Transmitted 17:00 Dextrose 50% Syringe PHA 03/16/24 Transmitted 15:45 Admit ADMIT 03/16/24 Transmitted 15:38 Allergies JANINA 03/16/24 Transmitted 15:38 Code Status CODE 03/16/24 Transmitted 15:38 0.9% Ns 1000 Ml PHA 03/16/24 Transmitted 15:45 Oxygen Per Hour RT 03/16/24 Transmitted 15:38 Hydrocodone-Acet PHA 03/16/24 Transmitted 5/325mg Tab ([place] 15:45 Ondansetron Hcl PHA 03/16/24 Transmitted (Zofran) 15:45 Docusate Sodium PHA 03/16/24 Transmitted Capsule (Colace 15:45 Fall Risk Precautions JANINA 03/16/[address] 15:38 Complete Blood Count LAB 03/17/24 Verified 04:00 Comprehensive LAB 03/17/24 Verified Metabolic Panel 04:00 Condition: Serious JANINA 03/16/24 Transmitted 15:38 Acetaminophen Tablet PHA 03/16/24 Transmitted (Tylenol Tablet) 15:45 Sequential JANINA 03/16/24 Transmitted Compression Device Nitroglycerin PHA 03/16/24 Transmitted Sublingual (Ntrostat 15:45 Morphine Sulfate PHA 03/16/24 Transmitted Injection 15:45 Notify Md Of Changes [facility] 03/16/24 Transmitted From Base 15:38 Emergency Dysrhythmia [facility] 03/16/24 Transmitted Protocol 15:38 Oxygen By Nasal RT 03/16/24 Transmitted Cannula 15:38 Problem List: (1) Left flank pain (2) Urinary tract infection (3) Diabetic nephropathy (4) Acute renal injury (5) Type 2 diabetes mellitus with diabetic nephropathy (6) Generalized weakness Date of Service: Mar 16, 2024 Billing Provider: JARET RIVAS DNP Common Visit Codes: 21725-[id number] INP/OBS CARE (HIGH) JARET RIVAS DNP Mar 16, 2024 15:46
[2024-03-16] MEDS ORDERED: ACCU-CHEK COMFORT CURVE STRIP VI SCH (17:00)
[2024-03-16] MEDS ORDERED: InsuLIN REG 1unit/0.01ml Soln (100units/ml) SC SCH (17:00)
[2024-03-16] MEDS: SODIUM CHLORIDE 0.9% 1,000 ML IV SCH (18:10)
[2024-03-16 19:02] VITALS: PULSE 85; RESP 20; O2SAT 98
[2024-03-16 21:07] VITALS: O2SAT 95
[2024-03-16 21:15] VITALS: BP 155/73; PULSE 56; RESP 18; TEMP 98; O2SAT 96
[2024-03-16] MEDS ORDERED: LISI40TA16 PO (21:23)
[2024-03-16] MEDS ORDERED: METO25TA93 PO (21:31)
[2024-03-16] MEDS ORDERED: ASPI81CH59 PO (21:31)
[2024-03-16] MEDS ORDERED: AMLO1TAB22 PO (21:31)
[2024-03-16] MEDS ORDERED: ATOR-47 PO (21:31)
[2024-03-16] MEDS ORDERED: INSU1INJ19 SC (21:31)
[2024-03-16] MEDS: InsuLIN REG 1unit/0.01ml Soln (100units/ml) SC SCH (22:00)
[2024-03-16] MEDS: HYDROcodone-ACET 5/325MG TAB PO PRN (23:08)
[2024-03-16] MEDS: ACCU-CHEK COMFORT CURVE STRIP VI SCH (23:14)
[2024-03-17 01:00] VITALS: BP 118/52; PULSE 74; RESP 18; TEMP 98.3; O2SAT 96
[2024-03-17 05:00] VITALS: BP 162/59; PULSE 68; RESP 18; TEMP 98.2; O2SAT 95
[2024-03-17 07:28] LABS: Basophils # (auto) 0.1 10 ^3/uL (0-0.2); Eosinophils # (auto) 0.2 10 ^3/uL (0-0.8); Eosinophils % (auto) 2.1 % (0.0-7.0); Hematocrit 34.7 % (36.0-46.0); Hemoglobin 11.5 g/dL (12.2-16.2); Lymphocytes # (auto) 2.3 10 ^3/uL (0.4-5.4); Lymphocytes % (auto) 23.6 % (10.0-50.0); Mean Corpuscular Hgb Conc. 33.2 g/dL (32.0-36.0); Mean Corpuscular Volume 90.4 fL (80.0-100.0); Monocytes # (auto) 0.8 10 ^3/uL (0-1.3); Monocytes % (auto) 7.8 % (0.0-12.0); Neutrophils # (auto) 6.5 10 ^3/uL (1.6-8.6); Neutrophils % (auto) 65.5 % (37.0-80.0); Nucleated Red Blood Cells % 0.1 %; Platelet Count (auto) 319 10^3/uL (140-450); Red Blood Cells 3.84 10^6/uL (4.0-5.20); Red Cell Distribution Width 13.7 % (11.8-14.3); White Blood Cell 9.9 10^3/uL (4.4-10.8)
[2024-03-17 07:43] LABS: Albumin 3.4 g/dL (3.2-4.8); Alkaline Phosphatase 83 U/L (46-116); Anion Gap 8 (5-15); BUN/Creatinine Ratio 15.5 (10.0-20.0); Bilirubin, Total 0.4 mg/dL (0.2-1.0); Carbon Dioxide 26 mmol/L (20-31); Chloride 106 mmol/L (98-107); Potassium 3.9 mmol/L (3.5-5.1); Sodium 140 mmol/L (136-145); Total Protein 6.4 g/dL (5.7-8.2)
[2024-03-17 07:48] LABS: Alanine Aminotransferase < 9 U/L (7-40); Aspartate Aminotransferase 10 U/L (13-40); Blood Urea Nitrogen 23 mg/dL (9-23); Glucose 136 mg/dL (74-106)
[2024-03-17 09:00] VITALS: BP 138/77; PULSE 65; RESP 16; TEMP 98; O2SAT 95
[2024-03-17] MEDS ORDERED: levoFLOXacin 250MG 50 ML IV SCH (10:00)
[2024-03-17] MEDS: levoFLOXacin 250MG 50 ML IV SCH (11:13)
--- NOTE | 2024-03-17 12:37 | DVHPN2 ---
Reviewed: Care Plan, H&P, Labs, Medications, Previous Orders, Radiology Changes from previous H/P or p: No Changes Eyes: No Pain, No Vision change, No Conjunctivae inflammation, No Eyelid inflammation; Other (Blurry vision); No Redness ENT: No Ear pain, No Ear discharge, No Nose pain, No Nose discharge, No Nose congestion, No Mouth pain, No Mouth swelling, No Throat pain, No Throat swelling, No Other Cardiovascular: No Chest Pain, No Palpitations, No Orthopnea, No Paroxysmal Noc. Dyspnea, No Edema, No Lt Headedness, No Other Respiratory: No Cough, No Dry, No Shortness of breath, No SOB with excertion, No Wheezing, No Hemoptysis, No Pleuritic Pain, No Sputum, No Other Gastrointestinal: No Nausea, No Vomiting, No Abdominal Pain, No Diarrhea, No Constipation, No Melena, No Hematochezia, No Other Genitourinary: No Dysuria; Frequency; No Incontinence, No Hematuria, No Retention; Other (Left flank pain) Musculoskeletal: No other, No neck pain, No shoulder pain, No arm pain; back pain; No hand pain, No leg pain, No foot pain Skin: No Rash, No Lesions, No Jaundice, No Bruising, No Other Objective Vitals Vital Signs Date Time Temp Pulse Resp B/P (MAP) Pulse Ox O2 Delivery O2 Flow Rate FiO2 03/17/24 09:00 98.0 65 16 138/77 (97) 95 98.0 03/16/24 21:07 Room Air* 0 21 Intake/Output Intake and Output 03/17/24 07:00 Intake Total 2030 ml Balance 2030 ml Intake Oral 550 ml IV Total 1480 ml # Voids 4 Medications Current Medications Medications Dose Ordered Sig/Solis Route Start Time Stop Time Status Last Admin Dose Admin Insulin Human Regular ACHS SC 03/16/24 17:15 03/17/24 11:39 2 UNITS Dextrose 50 ml UD PRN IV 03/16/24 16:00 Ondansetron HCl 4 mg Q4HP PRN IV 03/16/24 16:00 Morphine Sulfate 2 mg Q30M PRN IV 03/16/24 16:00 Levofloxacin 50 ml @ 50 mls/hr DAILY IV 03/17/24 10:00 Sodium Chloride 1,000 ml @ 60 mls/hr [id number] IV 03/16/24 16:00 03/17/24 11:13 60 MLS/HR Acetaminophen/ Hydrocodone Bitart 1 tab Q4HP PRN PO 03/16/24 16:00 03/17/24 06:29 1 TAB Docusate Sodium 100 mg BIDPRN PRN PO 03/16/24 16:00 Acetaminophen 650 mg Q6HP PRN PO 03/16/24 16:00 Nitroglycerin 0.4 mg Q5MINP PRN SL 03/16/24 16:00 Diagnostic Test (Pha) 1 strip ACHS 03/16/24 17:15 03/17/24 11:39 1 STRIP Laboratory Results Laboratory Tests 03/17/24 06:05 Chemistry Test 03/17/24 06:05 Albumin 3.4 g/dL (3.2-4.8) Calcium Level 9.0 mg/dL (8.7-10.4) Total Protein 6.4 g/dL (5.7-8.2) LFT Test 03/17/24 06:05 Alanine Aminotransferase (ALT) < 9 U/L (7-40) Alkaline Phosphatase 83 U/L (46-116) Aspartate Amino Transferase (AST) 10 U/L (13-40) L Total Bilirubin 0.4 mg/dL (0.2-1.0) Urinalysis Test 03/16/24 08:00 Urine Color Light yellow (Yellow) Urine Clarity Ex.turbid (Clear) Urine pH 6.0 (5.0-9.0) Urine Specific [place] 1.009 (1.001-1.035) Urine Protein 2+ (Negative) H Urine Ketones Negative (Negative) Urine Blood 2+ /uL (Negative) H Urine Nitrite Negative (Negative) Urine Bilirubin Negative (Negative) Urine Urobilinogen Normal mg/dL (Negative) Urine Leukocyte Esterase 3+ /uL (Negative) Urine RBC 13 /hpf (0 - 4) Urine WBC 1380 /hpf (0 - 5) Urine WBC Clumps Present /hpf (None Seen) Urine Squamous Epithelial Cells Few /hpf (<5) Urine Bacteria Many /hpf (None Seen) H Urine Glucose Normal mg/dL (Normal) Microbiology Microbiology Date/Time Source Procedure Growth Status 03/16/24 08:00 Voided Urine Urine Culture - Preliminary Resulted Labs and/or images reviewed: Labs reviewed by me, Image(s) reviewed by me Assessment/Plan Assessment/Plan Sepsis secondary to acute urinary tract infection: Blood cultures urine cultures Acute urinary tract infection : Levaquin Acute pyelonephritis Acute left flank pain History of CVA Diabetes: Insulin sliding scale Hypertension Blind both eyes History of [place] three months ago status post stents Hypercholesterolemia Time Spent 65 minutes Patient is full code Advanced care planning time 20 minutes Plan discussed with: Patient My Orders Orders - JOHN BUTLER MD Procedure Category Date Status Time Blood Culture ANISHA 03/17/24 Transmitted 12:28 Date of Service: Mar 17, 2024 Billing Provider: JOHN BUTLER MD Common Visit Codes: [id number] CARE 30-74 MIN JOHN BUTLER MD Mar 17, 2024 12:37
[2024-03-17 13:00] VITALS: BP 168/72; PULSE 85; RESP 18; TEMP 98.2; O2SAT 99
[2024-03-17] MEDS: levoFLOXacin 250 MG TAB PO SCH (14:25)
--- NOTE | 2024-03-17 14:42 | DVH ---
CT ABDOMEN AND PELVIS WITHOUT CONTRAST CLINICAL HISTORY: Left flank pain TECHNIQUE: Multiple contiguous axial images of the abdomen and pelvis without intravenous contrast. The images were reformatted degenerate coronal and sagittal reconstructions. All CT scans at this medical facility are performed using dose modulation techniques as appropriate t o a performed exam including the following:Automated exposure control was utilized; adjustment of the MA and/or KV according to patient size; and use of iterative reconstruction technique. Radiation Dose Information: CT Dose: CTDI volume is 12.68 mGy. Dose-length product is 657.05 mGy*cm Comparison: None FINDINGS: Evaluation of the abdomen and pelvis is limited without intravenous contrast. There is moderate bilateral hydroureteronephrosis. There is no evidence of a radiopaque renal calculu s. There is no evidence of a ureteral calculus. The liver, gallbladder, pancreas, adrenal glands, and spleen appear within normal limits. There is no gross evidence of abdominal lymphadenopathy. There is no free fluid or free air. There is small hiatal hernia. The stomach otherwise grossly appears within normal limits. The small and large bowel loops demonstrate normal caliber. There are scattered diverticula in the sigmoid co dustin without evidence of acute diverticulitis. The abdominal aorta and IVC appear within normal limits. There is irregular nodular thickening along the dome of the bladder suspicious for primary bladder ma lignancy. Pelvic organ appears within normal limits. There is no gross evidence of a pelvic mass. Th ere is no free fluid collection. There is a 7 mm nodule in the posterior right lung base. There is mild scarring versus atelectasis in the left lower lobe. There is no acute osseous abnormality. IMPRESSION: 1. There is irregular nodular thickening along the dome of the bladder suspicious for primary bladder malignancy. Correlation with cystoscopy and biopsy is recommended. 2. Moderate bilateral hydroureteronephrosis. There is no evidence of a obstructing renal or ureteral calculus. 3. Sigmoid diverticulosis. 4. Nonspecific 7 mm pulmonary nodule in the posterior right lung base. Further evaluation with dedic ated CT chest is recommended. HS:Y
[2024-03-17 20:00] VITALS: PULSE 82; RESP 18; O2SAT 95
[2024-03-17 21:00] VITALS: BP 157/66; PULSE 82; RESP 18; TEMP 98.9; O2SAT 95
[2024-03-18 01:00] VITALS: BP 132/60; PULSE 75; RESP 18; TEMP 98.3; O2SAT 98
[2024-03-18 05:00] VITALS: PULSE 91; TEMP 97.9; O2SAT 97
[2024-03-18 09:00] VITALS: BP 128/54; PULSE 55; RESP 20; TEMP 97.5; O2SAT 96
--- NOTE | 2024-03-18 11:54 | DVHPN2 ---
Reviewed: Care Plan, H&P, Labs, Medications, Previous Orders, Radiology Changes from previous H/P or p: No Changes Eyes: No Pain, No Vision change, No Conjunctivae inflammation, No Eyelid inflammation; Other (Blurry vision); No Redness ENT: No Ear pain, No Ear discharge, No Nose pain, No Nose discharge, No Nose congestion, No Mouth pain, No Mouth swelling, No Throat pain, No Throat swelling, No Other Cardiovascular: No Chest Pain, No Palpitations, No Orthopnea, No Paroxysmal Noc. Dyspnea, No Edema, No Lt Headedness, No Other Respiratory: No Cough, No Dry, No Shortness of breath, No SOB with excertion, No Wheezing, No Hemoptysis, No Pleuritic Pain, No Sputum, No Other Gastrointestinal: No Nausea, No Vomiting, No Abdominal Pain, No Diarrhea, No Constipation, No Melena, No Hematochezia, No Other Genitourinary: No Dysuria; Frequency; No Incontinence, No Hematuria, No Retention; Other (Left flank pain) Musculoskeletal: No other, No neck pain, No shoulder pain, No arm pain; back pain; No hand pain, No leg pain, No foot pain Skin: No Rash, No Lesions, No Jaundice, No Bruising, No Other Objective Vitals Vital Signs Date Time Temp Pulse Resp B/P (MAP) Pulse Ox O2 Delivery O2 Flow Rate FiO2 03/18/24 09:00 97.5 55 20 128/54 (78) 96 97.5 03/17/24 20:00 Room Air* 0 21 Intake/Output Intake and Output 03/18/24 07:00 Intake Total 620 ml Balance 620 ml Intake Oral 620 ml # Voids 16 Medications Current Medications Medications Dose Ordered Sig/Solis Route Start Time Stop Time Status Last Admin Dose Admin Insulin Human Regular ACHS SC 03/16/24 17:15 03/17/24 11:39 2 UNITS Dextrose 50 ml UD PRN IV 03/16/24 16:00 Ondansetron HCl 4 mg Q4HP PRN IV 03/16/24 16:00 Morphine Sulfate 2 mg Q30M PRN IV 03/16/24 16:00 Sodium Chloride 1,000 ml @ 60 mls/hr [id number] IV 03/16/24 16:00 03/17/24 11:13 60 MLS/HR Acetaminophen/ Hydrocodone Bitart 1 tab Q4HP PRN PO 03/16/24 16:00 03/17/24 06:29 1 TAB Docusate Sodium 100 mg BIDPRN PRN PO 03/16/24 16:00 Acetaminophen 650 mg Q6HP PRN PO 03/16/24 16:00 Nitroglycerin 0.4 mg Q5MINP PRN SL 03/16/24 16:00 Diagnostic Test (Pha) 1 strip ACHS 03/16/24 17:15 03/18/24 06:13 1 STRIP Levofloxacin 250 mg DAILY PO 03/17/24 13:30 03/18/24 11:00 250 MG Laboratory Results Laboratory Tests 03/17/24 06:05 Urinalysis Test 03/16/24 08:00 Urine Color Light yellow (Yellow) Urine Clarity Ex.turbid (Clear) Urine pH 6.0 (5.0-9.0) Urine Specific [place] 1.009 (1.001-1.035) Urine Protein 2+ (Negative) H Urine Ketones Negative (Negative) Urine Blood 2+ /uL (Negative) H Urine Nitrite Negative (Negative) Urine Bilirubin Negative (Negative) Urine Urobilinogen Normal mg/dL (Negative) Urine Leukocyte Esterase 3+ /uL (Negative) Urine RBC 13 /hpf (0 - 4) Urine WBC 1380 /hpf (0 - 5) Urine WBC Clumps Present /hpf (None Seen) Urine Squamous Epithelial Cells Few /hpf (<5) Urine Bacteria Many /hpf (None Seen) H Urine Glucose Normal mg/dL (Normal) Microbiology Microbiology Date/Time Source Procedure Growth Status 03/16/24 08:00 Voided Urine Urine Culture - Final Complete Labs and/or images reviewed: Labs reviewed by me, Image(s) reviewed by me Assessment/Plan Assessment/Plan Sepsis secondary to acute urinary tract infection: Blood cultures pending urine cultures mixed Acute urinary tract infection : Levaquin Acute pyelonephritis Acute left flank pain History of CVA Diabetes: Insulin sliding scale Hypertension Blind both eyes History of [place] three months ago status post stents Hypercholesterolemia Time Spent 55 minutes Patient is full code Daughter : SHAYAN [phone] Plan discussed with: Patient My Orders Orders - JOHN BUTLER MD Procedure Category Date Status Time Blood Culture ANISHA 03/17/24 In Process 12:28 Ct Ab Pel Wo Con-No CT 03/17/24 Resulted Oral Or Iv 12:29 Levofloxacin Tablet PHA 03/17/24 In Process (Levaquin Tablet) 13:30 Date of Service: Mar 18, 2024 Billing Provider: JOHN BUTLER MD Common Visit Codes: [id number] INP/OBS CARE(HIGH) JOHN BUTLER MD Mar 18, 2024 11:54
[2024-03-18 13:00] VITALS: BP 144/61; PULSE 65; RESP 20; TEMP 98.2; O2SAT 98
--- NOTE | 2024-03-18 13:25 | DVHPN2 ---
Reviewed: Care Plan, H&P, Labs, Medications, Previous Orders, Radiology Changes from previous H/P or p: No Changes Eyes: No Pain, No Vision change, No Conjunctivae inflammation, No Eyelid inflammation; Other (Blurry vision); No Redness ENT: No Ear pain, No Ear discharge, No Nose pain, No Nose discharge, No Nose congestion, No Mouth pain, No Mouth swelling, No Throat pain, No Throat swelling, No Other Cardiovascular: No Chest Pain, No Palpitations, No Orthopnea, No Paroxysmal Noc. Dyspnea, No Edema, No Lt Headedness, No Other Respiratory: No Cough, No Dry, No Shortness of breath, No SOB with excertion, No Wheezing, No Hemoptysis, No Pleuritic Pain, No Sputum, No Other Gastrointestinal: No Nausea, No Vomiting, No Abdominal Pain, No Diarrhea, No Constipation, No Melena, No Hematochezia, No Other Genitourinary: No Dysuria; Frequency; No Incontinence, No Hematuria, No Retention; Other (Left flank pain) Musculoskeletal: No other, No neck pain, No shoulder pain, No arm pain; back pain; No hand pain, No leg pain, No foot pain Skin: No Rash, No Lesions, No Jaundice, No Bruising, No Other Objective Vitals Vital Signs Date Time Temp Pulse Resp B/P (MAP) Pulse Ox O2 Delivery O2 Flow Rate FiO2 03/18/24 09:00 97.5 55 20 128/54 (78) 96 97.5 03/17/24 20:00 Room Air* 0 21 Intake/Output Intake and Output 03/18/24 07:00 Intake Total 620 ml Balance 620 ml Intake Oral 620 ml # Voids 16 Medications Current Medications Medications Dose Ordered Sig/Solis Route Start Time Stop Time Status Last Admin Dose Admin Insulin Human Regular ACHS SC 03/16/24 17:15 03/17/24 11:39 2 UNITS Dextrose 50 ml UD PRN IV 03/16/24 16:00 Ondansetron HCl 4 mg Q4HP PRN IV 03/16/24 16:00 Morphine Sulfate 2 mg Q30M PRN IV 03/16/24 16:00 Sodium Chloride 1,000 ml @ 60 mls/hr [id number] IV 03/16/24 16:00 03/17/24 11:13 60 MLS/HR Acetaminophen/ Hydrocodone Bitart 1 tab Q4HP PRN PO 03/16/24 16:00 03/17/24 06:29 1 TAB Docusate Sodium 100 mg BIDPRN PRN PO 03/16/24 16:00 Acetaminophen 650 mg Q6HP PRN PO 03/16/24 16:00 Nitroglycerin 0.4 mg Q5MINP PRN SL 03/16/24 16:00 Diagnostic Test (Pha) 1 strip ACHS 03/16/24 17:15 03/18/24 12:42 1 STRIP Levofloxacin 250 mg DAILY PO 03/17/24 13:30 03/18/24 11:00 250 MG Laboratory Results Laboratory Tests 03/17/24 06:05 Urinalysis Test 03/16/24 08:00 Urine Color Light yellow (Yellow) Urine Clarity Ex.turbid (Clear) Urine pH 6.0 (5.0-9.0) Urine Specific [place] 1.009 (1.001-1.035) Urine Protein 2+ (Negative) H Urine Ketones Negative (Negative) Urine Blood 2+ /uL (Negative) H Urine Nitrite Negative (Negative) Urine Bilirubin Negative (Negative) Urine Urobilinogen Normal mg/dL (Negative) Urine Leukocyte Esterase 3+ /uL (Negative) Urine RBC 13 /hpf (0 - 4) Urine WBC 1380 /hpf (0 - 5) Urine WBC Clumps Present /hpf (None Seen) Urine Squamous Epithelial Cells Few /hpf (<5) Urine Bacteria Many /hpf (None Seen) H Urine Glucose Normal mg/dL (Normal) Microbiology Microbiology Date/Time Source Procedure Growth Status 03/16/24 08:00 Voided Urine Urine Culture - Final Complete Labs and/or images reviewed: Labs reviewed by me, Image(s) reviewed by me Assessment/Plan Assessment/Plan Sepsis secondary to acute urinary tract infection: Blood cultures pending urine cultures mixed Acute urinary tract infection : Levaquin Acute pyelonephritis Acute left flank pain History of CVA Diabetes: Insulin sliding scale Hypertension Blind both eyes History of [place] three months ago status post stents Hypercholesterolemia 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 Ramos 7 mm nodule lower lobe right lung Time Spent 55 minutes Patient is full code Daughter : SHAYAN [phone] Plan discussed with: Patient My Orders Orders - JOHN BUTLER MD Procedure Category Date Status Time Levofloxacin Tablet PHA 03/17/24 In Process (Levaquin Tablet) 13:30 Date of Service: Mar 18, 2024 Billing Provider: JOHN BUTLER MD Common Visit Codes: [id number] INP/OBS CARE(HIGH) JOHN BUTLER MD Mar 18, 2024 13:25
[2024-03-18 17:00] VITALS: BP 151/62; PULSE 65; RESP 18; TEMP 98.4; O2SAT 97
--- NOTE | 2024-03-18 17:12 | MEDREC ---
[facility] ASP Intervention Section I [facility] ASP Intervention: Dose optimization(PK/PD) (RECOMMENDED DOSE OF LEVAQUIN FOR PYELONEPHRITIS IS 750 MG PO QD FOR 5-7 DAYS - PER PATIENT CRCL ON 03/17/24 THE DOSE SHOULD BE AJUSTED TO 750 MG EOD) HASEEB DIXON PHARMACIST Mar 18, 2024 17:12
[2024-03-18] MEDS: ACETAMINOPHEN 325 MG TAB PO PRN (17:20)
--- NOTE | 2024-03-18 18:00 | DVHINCON2 ---
History of Present Illness Home Meds Reported Medications Insulin Glargine (Basaglar Kwikpen) 100 Unit/Ml Inj, 27 UNITS SC HS 03/16/24 Metoprolol Succinate (Metoprolol Succinate Er) 25 Mg Tab, 1 TAB PO DAILY 03/16/24 Amlodipine Besylate (Amlodipine Besylate) 5 Mg Tab, 1 TAB PO DAILY 03/16/24 Aspirin (Aspirin Low Dose) 81 Mg Chw, 1 TAB PO DAILY 03/16/24 Atorvastatin Calcium (ATORVASTATIN CALCIUM) 80 Mg Tab, 40 MG PO DAILY 03/16/24 Lisinopril (Lisinopril) 40 Mg Tab, 1 TAB PO DAILY 03/16/24 Past Medical History Patient Family History: FH: hepatic cirrhosis G8 FATHER, H&P Exam Vital Signs Vital Signs Date Time Temp Pulse Resp B/P (MAP) Pulse Ox O2 Delivery O2 Flow Rate FiO2 03/18/24 17:00 98.4 65 18 151/62 (91) 97 98.4 03/17/24 20:00 Room Air* 0 21 Labs/Xrays Labs Test 03/18/24 12:31 03/17/24 06:05 03/16/24 15:30 03/16/24 08:00 Range/Units POC Glucose 108 H 70-106 mg/dl White Blood Count 9.9 4.4-10.8 10^3/uL Red Blood Count 3.84 L 4.0-5.20 10^6/uL Hemoglobin 11.5 L 12.2-16.2 g/dL Hematocrit 34.7 L 36.0-46.0 % Mean Corpuscular Volume 90.4 80.0-100.0 fL Mean Corpuscular Hemoglobin 30.0 28.0-32.0 pg Mean Corpuscular Hemoglobin Concent 33.2 32.0-36.0 g/dL Red Cell Distribution Width 13.7 11.8-14.3 % Platelet Count 319 140-450 10^3/uL Mean Platelet Volume 9.2 6.9-10.8 fL Neutrophils (%) (Auto) 65.5 37.0-80.0 % Lymphocytes (%) (Auto) 23.6 10.0-50.0 % Monocytes (%) (Auto) 7.8 0.0-12.0 % Eosinophils (%) (Auto) 2.1 0.0-7.0 % Basophils (%) (Auto) 1.0 0.0-2.0 % Neutrophils # (Auto) 6.5 1.6-8.6 10 ^3/uL Lymphocytes # (Auto) 2.3 0.4-5.4 10 ^3/uL Monocytes # (Auto) 0.8 0-1.3 10 ^3/uL Eosinophils # (Auto) 0.2 0-0.8 10 ^3/uL Basophils # (Auto) 0.1 0-0.2 10 ^3/uL Nucleated Red Blood Cells 0.1 % Sodium Level 140 136-145 mmol/L Potassium Level 3.9 3.5-5.1 mmol/L Chloride Level 106 98-107 mmol/L Carbon Dioxide Level 26 20-31 mmol/L Anion Gap 8 5-15 Blood Urea Nitrogen 23 9-23 mg/dL Creatinine 1.48 H 0.550-1.02 mg/dL Glomerular Filtration Rate Calc 37 >90 mL/min BUN/Creatinine Ratio 15.5 10.0-20.0 Serum Glucose 136 H 74-106 mg/dL Calcium Level 9.0 8.7-10.4 mg/dL Total Bilirubin 0.4 0.2-1.0 mg/dL Aspartate Amino Transferase (AST) 10 L 13-40 U/L Alanine Aminotransferase (ALT) < 9 7-40 U/L Alkaline Phosphatase 83 46-116 U/L Total Protein 6.4 5.7-8.2 g/dL Albumin 3.4 3.2-4.8 g/dL Troponin I High Sensitivity 11 </=34 ng/L Urine Color Light yellow Yellow Urine Clarity Ex.turbid Clear Urine pH 6.0 5.0-9.0 Urine Specific [place] 1.009 1.001-1.035 Urine Protein 2+ H Negative Urine Ketones Negative Negative Urine Blood 2+ H Negative /uL Urine Nitrite Negative Negative Urine Bilirubin Negative Negative Urine Urobilinogen Normal Negative mg/dL Urine Leukocyte Esterase 3+ Negative /uL Urine RBC 13 0 - 4 /hpf Urine WBC 1380 0 - 5 /hpf Urine WBC Clumps Present None Seen /hpf Urine Squamous Epithelial Cells Few <5 /hpf Urine Bacteria Many H None Seen /hpf Urine Glucose Normal Normal mg/dL Test 03/16/24 07:24 Range/Units Magnesium Level 2.2 1.6-2.6 mg/dL Lipase 33 12-53 U/L Microbiology Date/Time Source Procedure Growth Status 03/17/24 13:10 Blood Blood Culture - Preliminary NO GROWTH AFTER 24 HOURS OF INCUBATION. Resulted 03/16/24 08:00 Voided Urine Urine Culture - Final Complete Assessment/Plan Problem List: (1) Bladder mass (2) Hydronephrosis Plan discussed with: KAT Francisco NP Mar 18, 2024 18:00
[2024-03-18 21:00] VITALS: BP 119/64; PULSE 68; RESP 18; TEMP 98; O2SAT 95
[2024-03-19 01:00] VITALS: BP 118/63; PULSE 66; RESP 18; TEMP 98.2; O2SAT 95
[2024-03-19 05:00] VITALS: BP 153/63; PULSE 63; RESP 18; TEMP 98.4; O2SAT 98
[2024-03-19 09:00] VITALS: BP 134/68; PULSE 54; RESP 18; TEMP 98; O2SAT 95
[2024-03-19] MEDS ORDERED: LEVO500T91 PO (11:39)
--- NOTE | 2024-03-19 11:44 | DVHDS2 ---
Discharge Summary Date of Admission Mar 16, 2024 at 15:38 Date of Discharge: Mar 19, 2024 Admitting Diagnosis Generalized weakness Wounds: None Labs/Diagnostic Data: Laboratory Results Test 03/19/24 11:02 03/17/24 06:05 03/16/24 15:30 03/16/24 08:00 POC Glucose 147 mg/dl (70-106) White Blood Count 9.9 10^3/uL (4.4-10.8) Red Blood Count 3.84 10^6/uL (4.0-5.20) Hemoglobin 11.5 g/dL (12.2-16.2) Hematocrit 34.7 % (36.0-46.0) Mean Corpuscular Volume 90.4 fL (80.0-100.0) Mean Corpuscular Hemoglobin 30.0 pg (28.0-32.0) Mean Corpuscular Hemoglobin Concent 33.2 g/dL (32.0-36.0) Red Cell Distribution Width 13.7 % (11.8-14.3) Platelet Count 319 10^3/uL (140-450) Mean Platelet Volume 9.2 fL (6.9-10.8) Neutrophils (%) (Auto) 65.5 % (37.0-80.0) Lymphocytes (%) (Auto) 23.6 % (10.0-50.0) Monocytes (%) (Auto) 7.8 % (0.0-12.0) Eosinophils (%) (Auto) 2.1 % (0.0-7.0) Basophils (%) (Auto) 1.0 % (0.0-2.0) Neutrophils # (Auto) 6.5 10 ^3/uL (1.6-8.6) Lymphocytes # (Auto) 2.3 10 ^3/uL (0.4-5.4) Monocytes # (Auto) 0.8 10 ^3/uL (0-1.3) Eosinophils # (Auto) 0.2 10 ^3/uL (0-0.8) Basophils # (Auto) 0.1 10 ^3/uL (0-0.2) Nucleated Red Blood Cells 0.1 % Sodium Level 140 mmol/L (136-145) Potassium Level 3.9 mmol/L (3.5-5.1) Chloride Level 106 mmol/L (98-107) Carbon Dioxide Level 26 mmol/L (20-31) Anion Gap 8 (5-15) Blood Urea Nitrogen 23 mg/dL (9-23) Creatinine 1.48 mg/dL (0.550-1.02) Glomerular Filtration Rate Calc 37 mL/min (>90) BUN/Creatinine Ratio 15.5 (10.0-20.0) Serum Glucose 136 mg/dL (74-106) Calcium Level 9.0 mg/dL (8.7-10.4) Total Bilirubin 0.4 mg/dL (0.2-1.0) Aspartate Amino Transferase (AST) 10 U/L (13-40) Alanine Aminotransferase (ALT) < 9 U/L (7-40) Alkaline Phosphatase 83 U/L (46-116) Total Protein 6.4 g/dL (5.7-8.2) Albumin 3.4 g/dL (3.2-4.8) Troponin I High Sensitivity 11 ng/L (</=34) Urine Color Light yellow (Yellow) Urine Clarity Ex.turbid (Clear) Urine pH 6.0 (5.0-9.0) Urine Specific [place] 1.009 (1.001-1.035) Urine Protein 2+ (Negative) Urine Ketones Negative (Negative) Urine Blood 2+ /uL (Negative) Urine Nitrite Negative (Negative) Urine Bilirubin Negative (Negative) Urine Urobilinogen Normal mg/dL (Negative) Urine Leukocyte Esterase 3+ /uL (Negative) Urine RBC 13 /hpf (0 - 4) Urine WBC 1380 /hpf (0 - 5) Urine WBC Clumps Present /hpf (None Seen) Urine Squamous Epithelial Cells Few /hpf (<5) Urine Bacteria Many /hpf (None Seen) Urine Glucose Normal mg/dL (Normal) Test 03/16/24 07:24 Magnesium Level 2.2 mg/dL (1.6-2.6) Lipase 33 U/L (12-53) Other Laboratory Tests 03/17/24 06:05 Brief Hx & Hospital Course: 3-year-old female with a history of CVA diabetes hypertension blindness both eyes history of [place] three months ago status post stents hypercholesterolemia came in for generalized weakness found to be in sepsis secondary to acute urinary tract infection treated with Levaquin blood cultures negative urine cultures mixed. Patient also had acute pyelonephritis CT abdomen pelvis showed a mass in the dome of the bladder with a bilateral ureteral hydronephrosis rule out malignancy. Consult placed for urology Dr. Ramos seen by the assistant professor Jo Ann Love. Dr. Ramos is on vacation for two weeks. patient was advised to follow up with Dr Ramos as an outpatient for possible cystoscopy and biopsy of the bladder mass rule out malignancy specimen for Levaquin for UTI transmitted to the pharmacy Consults/Reason for consult Urology Dr. 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 Ramos 7 mm nodule lower lobe right lung Discharge Disposition: Home Discharge Instruct/Medications Diet: Cardiac 2g Na,low cholest Activity: Light activity Follow Up/Referral: Follow up with your primary Dr in one week Follow up with the Urology Dr. Ramos in two weeks regarding the bladder mass for cystoscopy and possible biopsy Medications: Levaquin 500 mg p.o. daily Transmitted to [facility] (Time Taken for discharge summary 39 minutes) Discharge Statement: "Patient was advised to return to the ER or call 911 if any headaches, dizziness, shortness of breath, chest pain, abdominal pain, bleeding, fevers, or worsening of medical condition. Patient was counseled about treatment plan, medications, possible side effects, patientverbalized understanding. All questions were answered to the best of my ability. 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 Ramos 7 mm nodule lower lobe right lung Date of Service: Mar 19, 2024 Billing Provider: JOHN BUTLER MD Common Visit Codes: [id number] DISCH DAY >30min JOHN BUTLER MD Mar 19, 2024 11:44
[2024-03-19 12:22] VITALS: BP 139/75; PULSE 89; RESP 18; TEMP 97.8; O2SAT 100
[2024-03-19 13:00] VITALS: BP 152/77; PULSE 72; RESP 18; TEMP 97.5; O2SAT 98
--- NOTE | 2024-03-19 15:02 | ECG ---
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
== END 2024-03-19 14:10 | disposition home or self-care (01) | DRG 690 ==
LOC: ER 06:11 → EDBD 06:11 → OVERFLOW 15:38 → ER 15:46 → WEST WING 21:06
PROVIDERS: ADMIT Family Medicine; ATTEND Family Medicine
DX: N30.01 Acute cystitis with hematuria (principal); N13.6 Pyonephrosis; E11.21 Type 2 diabetes mellitus with diabetic nephropathy; H54.3 Unqualified visual loss, both eyes; I10 Essential (primary) hypertension; G40.909 Epilepsy, unspecified, not intractable, without status epilepticus; N32.9 Bladder disorder, unspecified; E78.00 Pure hypercholesterolemia, unspecified; C67.1 Malignant neoplasm of dome of bladder; Z88.0 Allergy status to penicillin; Z86.73 Personal history of transient ischemic attack (TIA), and cerebral infarction without residual deficits; I25.2 Old myocardial infarction; Z79.82 Long term (current) use of aspirin; Z79.899 Other long term (current) drug therapy
CPT/HCPCS: 36415; 71045; 74176; 80053; 81001; 82962; 83690; 83735; 84484; 85025; 87040; 87086; 93005; 96361; 96365; 96375; G0378; J1815

== ENCOUNTER 2024-05-27 01:41 | Inpatient (IN) | payer OTHER, MEDICAID ==
[~2024-05-27] VITALS: Ht 162.6 cm; Wt 80.0 kg
[2024-05-27] VITALS (9 sets, daily range): BP systolic 119–151; BP diastolic 65–78; PULSE 54–72; RESP 12–18; TEMP 97.4–97.6; O2SAT 95–98
[~2024-05-27 01:41] MED LIST changes: -ACET-1080 PO; +AMLO1TAB22 PO; +ASPI81CH59 PO; +ATOR-47 PO; -FURO1TAB33; -GABA-1308 PO; -HYDR-1421; +INSU1INJ19 SC; -INSUPOW; +LEVO500T91 PO; -LISI2.5T47 PO; +LISI40TA16 PO; +METO25TA93 PO; -TRAM50TA2 PO; -TRIAPOW6; -[UNRECOGNIZED DRUG - OTHER] PO; -nitrostat SL
[2024-05-27] MEDS: SODIUM CHLORIDE 0.9% 1,000 ML IVB ONE (02:00)
--- NOTE | 2024-05-27 02:15 | ED.PDOC ---
General HPI Comments 73-year-old female came to ER by EMS for flank pains. Patient notes history of hypertension and diabetes, Recently diagnosed with UTI, was prescribed Bactrim, however patient was unable to complete the course of antibiotics. For the past few days, noted left flank pains, with foul smelling urine and urinary frequency. Denies any dysuria or gross hematuria Chief Complaint: Flank Pain Time Seen by MD: 02:15 Primary Care Provider: UNKNOWN Reviewed notes: Nurses Notes Allergies: Coded Allergies: Penicillins (Verified Allergy, Unknown, 03/16/24) Home Meds Active Scripts Levofloxacin Hemihydrate (LEVAQUIN 500 MG) 500 Mg Tab, 1 TAB PO DAILY, #7 TAB Prov:JOHN BUTLER MD 03/19/24 Reported Medications Insulin Glargine (Basaglar Kwikpen) 100 Unit/Ml Inj, 27 UNITS SC HS 03/16/24 Metoprolol Succinate (Metoprolol Succinate Er) 25 Mg Tab, 1 TAB PO DAILY 03/16/24 Amlodipine Besylate (Amlodipine Besylate) 5 Mg Tab, 1 TAB PO DAILY 03/16/24 Aspirin (Aspirin Low Dose) 81 Mg Chw, 1 TAB PO DAILY 03/16/24 Atorvastatin Calcium (ATORVASTATIN CALCIUM) 80 Mg Tab, 40 MG PO DAILY 03/16/24 Lisinopril (Lisinopril) 40 Mg Tab, 1 TAB PO DAILY 03/16/24 Information Source: Patient Mode of Arrival: EMS Severity: Moderate Inability to void: Mild Timing: Minutes Duration: Since onset Has not urinated for: Minutes Prehospital treatment: None Onset: Spontaneous Symptoms: Frequency History of: UTI Location: (L)Flank associated signs and symptoms: Flank Pain, Back Pain, Frequency Past Medical History PAST MEDICAL HISTORY: CKF, CVA, DM, High Lipids, HTN, ME, Seizures, UTI'S Surgical History: Denies all surgeries LINSEED OIL REFINER History: No Pertinent LINSEED 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 REFINER History Family History Family History: Reviewed,noncontributory to illness, Unknown Social History Smoker: Non-Smoker, Unknown Alcohol: Denies ETOH Use, Unknown Drugs: Denies Drug Use, Unknown Lives In: Home Constitutional: denies: chills, diaphoresis, fatigue, fever, malaise, sweats, weakness, others EENTM: denies: blurred vision, double vision, ear bleeding, ear discharge, ear drainage, ear pain, ear ringing, eye pain, eye redness, hearing loss, mouth pain, mouth swelling, nasal discharge, nose bleeding, nose congestion, nose pain, photophobia, tearing, throat pain, throat swelling, voice changes, others Respiratory: denies: cough, hemoptysis, orthopnea, SOB at rest, shortness of breath, SOB with excertion, stridor, wheezing, others Cardiovascular: denies: chest pain, dizzy spells, diaphoresis, Dyspnea on exertion, edema, irregular heart beat, left arm pain, lightheadedness, palpitations, PND, syncope, others Gastrointestinal: denies: abdomen distended, abdominal pain, blood streaked bowels, constipated, diarrhea, dysphagia, difficulty swallowing, hematemesis, melena, nausea, poor appetite, poor fluid intake, rectal bleeding, rectal pain, vomiting, others Genitourinary: reports: flank pain, frequency; denies: abnormal vagina bleeding, burning, dyspareunia, dysuria, hematuria, incontinence, pain, , vagina discharge, urgency, others Neurological: denies: dizziness, fainting, headache, left sided numbness, left sided weakness, numbness, paresthesia, pre-existing deficit, right sided numbness, right sided weakness, seizure, speech problems, tingling, tremors, weakness, others Musculoskeletal: denies: back pain, gout, joint pain, joint swelling, muscle pain, muscle stiffness, neck pain, others Integumetry: denies: bruises, change in color, change in hair/nails, dryness, laceration, lesions, lumps, rash, wounds, others Allergic/Immunocompromised: denies: Difficulty Healing, Frequent Infections, Hives, Itching, others Hematologic/Lymphatic: denies: anemia, blood clots, easy bleeding, easy bruising, swollen glands, others Endocrine: denies: excessive hunger, excessive sweating, excessive thirst, excessive urination, flushing, intolerance to cold, intolerance to heat, unexplained weight gain, unexplained weight loss, others Psychiatric: denies: anxiety, bipolar disorder, depression, hopeless, panic d isorder, schizophrenia, sleepless, suicidal, others Physical Exam General Appearance: No Apparent Distress, Normal HEENT: Normal ENT Inspection, Pharynx Normal, TMs Normal Neck: Full Range of Motion, Non-Tender, Normal, Normal Inspection Respiratory: Chest Non-Tender, Lungs Clear, No Accessory Muscle Use, No Respiratory Distress, Normal Breath Sounds Cardiovascular: No Edema, No JVD, No Murmur, No Gallop, Normal Peripheral Pulses, Regular Rate/Rhythm Breast Exam: Deferred Gastrointestinal: No Organomegaly, Non Tender, No Pulsatile Mass, Normal Bowel Sounds, Soft Genitalia: Deferred Pelvic: Deferred Rectal: Deferred Extremities: No calf tenderness, Normal capillary refill, Normal inspection, Normal range of motion, Non-tender, No pedal edema Musculoskeletal : Apperance: Normal Neurologic: Alert, analytics architect II-XII nml as Tested, No Motor Deficits, Normal Affect, Normal Mood, No Sensory Deficits Cerebellar Function: Normal Reflexes: Normal Skin: Dry, Normal Color, Warm Lymphatic: No Adenopathy Was a procedure done? Was a procedure done?: No Differential Diagnosis Kidney stone (Female): Musculoskeletal pain, Pyelonephritis, Renal failure, Strain, Urinary obstruction, Urolithiasis Urinary Problem (Female): Pyelonephritis, Urinary retention, Urolithiasis, UTI X-Ray, Labs, Meds, VS Vital Signs Date Time Temp Pulse Resp B/P (MAP) Pulse Ox O2 Delivery O2 Flow Rate FiO2 05/27/24 03:26 75 20 157/77 05/27/24 01:50 98.3 81 16 173/83 (113) 96 98.3 Lab Test 05/27/24 02:11 Range/Units White Blood Count 10.0 4.4-10.8 10^3/uL Red Blood Count 4.03 4.0-5.20 10^6/uL Hemoglobin 12.3 12.2-16.2 g/dL Hematocrit 36.2 36.0-46.0 % Mean Corpuscular Volume 90.0 80.0-100.0 fL Mean Corpuscular Hemoglobin 30.6 28.0-32.0 pg Mean Corpuscular Hemoglobin Concent 34.0 32.0-36.0 g/dL Red Cell Distribution Width 14.8 H 11.8-14.3 % Platelet Count 214 140-450 10^3/uL Mean Platelet Volume 9.4 6.9-10.8 fL Neutrophils (%) (Auto) 58.3 37.0-80.0 % Lymphocytes (%) (Auto) 31.1 10.0-50.0 % Monocytes (%) (Auto) 6.5 0.0-12.0 % Eosinophils (%) (Auto) 2.9 0.0-7.0 % Basophils (%) (Auto) 1.2 0.0-2.0 % Neutrophils # (Auto) 5.8 1.6-8.6 10 ^3/uL Lymphocytes # (Auto) 3.1 0.4-5.4 10 ^3/uL Monocytes # (Auto) 0.7 0-1.3 10 ^3/uL Eosinophils # (Auto) 0.3 0-0.8 10 ^3/uL Basophils # (Auto) 0.1 0-0.2 10 ^3/uL Nucleated Red Blood Cells 0.0 % Sodium Level 139 136-145 mmol/L Potassium Level 3.5 3.5-5.1 mmol/L Chloride Level 106 98-107 mmol/L Carbon Dioxide Level 26 20-31 mmol/L Anion Gap 7 5-15 Blood Urea Nitrogen 21 9-23 mg/dL Creatinine 1.24 H 0.550-1.02 mg/dL Glomerular Filtration Rate Calc 45 >90 mL/min BUN/Creatinine Ratio 16.9 10.0-20.0 Serum Glucose 100 74-106 mg/dL Calcium Level 9.2 8.7-10.4 mg/dL Total Bilirubin 0.3 0.2-1.0 mg/dL Aspartate Amino Transferase (AST) 13 13-40 U/L Alanine Aminotransferase (ALT) 10 7-40 U/L Alkaline Phosphatase 98 46-116 U/L Total Protein 7.3 5.7-8.2 g/dL Albumin 4.0 3.2-4.8 g/dL Lipase 41 12-53 U/L Current Medications Medications (Trade) Dose Ordered Sig/Solis Route Start Time Stop Time Status Last Admin Ondansetron HCl (Zofran) 4 mg ONCE ONCE IV 05/27/24 02:00 05/27/24 02:01 DC 05/27/24 03:25 Sodium Chloride 1,000 ml @ 1,000 mls/hr Q1H ONCE IVB 05/27/24 02:00 05/27/24 02:59 DC 05/27/24 02:00 Morphine Sulfate 4 mg ONCE ONCE IV 05/27/24 02:00 05/27/24 02:01 DC 05/27/24 03:26 Exam: CT CT AB PEL WO CON-NO ORAL OR IV History: left flank pain Comparison Study: CT CT AB PEL WO CON-NO ORAL OR IV on DOS: 03/17/24 Technique: Multidetector spiral CT of the abdomen was performed from lung bases to pubic symphysis. Imaging was performed without IV contrast. Axial, coronal and sagittal multiplanar reformats were obtained from the axial data set by the technologist. Radiation Dose : 1. Abdomen/Pelvis: CTDIvol 21.45 mGy, DLP 1062.51 mGy*cm. Findings: Evaluation of solid organs is limited due to lack of intravenous contrast use. Lung Bases: Stable appearing 0.7 cm noncalcified pulmonary nodule within the posterior right lower lobe. Otherwise, no acute or significant lung base finding. Normal heart size. No pleural or pericardial effusion. Liver: The liver is normal in size. No focal lesions. Gallbladder and Biliary Tree: Unremarkable Spleen: Unremarkable Pancreas: The pancreas is grossly normal in appearance. Adrenal Glands: Unremarkable Kidneys: Stable appearing moderate bilateral hydroureteronephrosis without evidence of an obstructing renal or ureteral calculus. Bladder: Once again, there is diffuse slightly irregular appearing wall thickening of the urinary bladder, most notably within the superior aspect, suspicious for possible neoplastic process. Bowel: The stomach is grossly normal in appearance. Small bowel and colon are normal in caliber and distribution. Retained colonic stool noted. Sigmoid diverticulosis. The appendix is not visualized; however, no secondary findings of acute appendicitis identified. Ascites: Absent Lymphadenopathy: No mesenteric, retroperitoneal or periportal lymphadenopathy. Abdominal Wall and Mesentery: Unremarkable. Vasculature: The visualized abdominal aorta is normal in size and caliber. Atherosclerotic vascular calcifications redemonstrated throughout the aorta and major branching vessels. Evaluation of abdominal and pelvic vessels is limited due to lack of intravenous contrast. Pelvic Organs: Unremarkable Musculoskeletal: No aggressive focal bony lesions, acute fractures or dislocation. IMPRESSION: 1. No acute abdominal or pelvic findings. 2. Stable appearing moderate bilateral hydroureteronephrosis without evidence of an obstructing renal or ureteral calculus. 3. Stable appearing diffuse irregular urinary bladder wall thickening, most notably within the superior aspect, suspicious for malignancy. 4. Sigmoid diverticulosis. 5. Stable appearing posterior right lower lobe pulmonary nodule. Radiation optimization: All CT scans at this facility use at least one of these dose optimization techniques: automated exposure control mA and/or kV adjustment per patient size (includes targeted exams where dose is matched to clinical indication) or iterative reconstruction. Time of 1ST Reevaluation: 02:05 Reevaluation 1ST: Unchanged Time of 2ND Reevaluation: 03:44 Reevaluation 2ND: Unchanged Patient Education/Counseling: Diagnosis, Treatment Family Education/Counseling: No Family Present Sepsis focused exam: focus exam completed (In the initial resuscitation at least 30 mL/kg of IV crystalloid fluid was NOT given within the first 3 hr due to concerns of fluid overload), time: (0) Sepsis Sepsis Reasesment Focused Exam Sepsis focused exam: focus exam completed, time: (299) Departure 1 Departure Time of Disposition: 03:41 Impression: Primary Impression: Left flank pain Additional Impressions: Acute renal injury Dehydration Hydronephrosis Disposition: ADMITTED INPATIENT Condition: Guarded Discharged With: Self Comments Acute Kidney Injury with Bilateral Flank Pain Chief Complaint: Bilateral flank pain with decreased urine output History of Present Illness: 73-year-old female presents with bilateral flank pain and decreased urine output. Patient was recently prescribed Bactrim for a urinary tract infection but discontinued the medication. After receiving IV fluids in the ED, patient has been unable to produce urine. Patient has a known history of bilateral hydroureteronephrosis. Review of Systems: Constitutional: Negative for fever Genitourinary: Positive for decreased urine output, flank pain All other systems reviewed and negative Medications: Recently discontinued Bactrim Other medications not documented in manager rental Past Medical History: Hypertension Diabetes mellitus Chronic bilateral hydroureteronephrosis Lab Results: Creatinine elevated at 1.24 Imaging and Other Relevant Results: CT Abdomen/Pelvis findings: - Bilateral hydroureteronephrosis (stable) - Bladder wall thickening suspicious for malignancy - Diverticulosis - Stable right pulmonary nodule Medical Decision Making: Summary Statement: 73-year-old female with history of hypertension and diabetes presents with bilateral flank pain, oliguria, and acute kidney injury in the setting of partially treated UTI and chronic hydroureteronephrosis. Problem List: 1. Acute kidney injury 2. Oliguria 3. Bilateral flank pain 4. Partially treated UTI 5. Chronic hydroureteronephrosis 6. Suspicious bladder wall thickening Differential Diagnosis: 1. Obstructive uropathy 2. Acute pyelonephritis 3. Medication-induced nephropathy 4. Bladder malignancy 5. Dehydration ED Course: Patient received IV fluid resuscitation without improvement in urine output. Labs revealed elevated creatinine. CT imaging showed stable hydroureteronephrosis with concerning bladder wall findings. Assessment and Plan: 1. Acute Kidney Injury with Oliguria: - Admit to hospital for further management - Continue IV fluid resuscitation - Monitor urine output - Serial creatinine measurements 2. Urinary Tract Infection: - Resume appropriate antibiotic therapy based on culture results - Monitor response to treatment 3. Suspicious Bladder Wall Thickening: - Urgent urology consultation - Further evaluation for possible malignancy 4. Chronic Hydroureteronephrosis: - Urology to evaluate and manage - Monitor for worsening obstruction Billing Information: ICD-10: N17.9 - Acute kidney failure, unspecified ICD-10: N13.30 - Unspecified hydronephrosis ICD-10: N39.0 - Urinary tract infection, site not specified ICD-10: R34 - Anuria and oliguria ICD-10: R10.9 - Unspecified abdominal pain Critical Care Note Critical Care Time?: Yes (35 min-critical care time only) Critical care comment: Total critical care time: Approximately 36 minutes Due to a high probability of clinically significant, life threatening deterioration, the patient required my highest level of preparedness to intervene emergently and I personally spent this critical care time directly and personally managing the patient. This critical care time included obtaining a history; examining the patient; pulse oximetry; ordering and review of studies; arranging urgent treatment with development of a management plan; evaluation of patient's response to treatment; frequent reassessment; and, discussions with other providers. This critical care time was performed to assess and manage the high probability of imminent, life-threatening deterioration that could result in multi-organ failure. It was exclusive of separately billable procedures and treating other patients. Stability Stability form required: No Heart Score Heart Score: Heart Score Response (Comments) Value History N/A 0 EKG N/A 0 Age N/A 0 Risk Factors N/A 0 Troponin N/A 0 Total 0 I personally scribed for JULIO ADDISON MD ([email or web address]) on 05/27/24 at 02:15. Electronically submitted by Darrick Pelaez ([email or web address]). I personally scribed for JULIO ADDISON MD ([email or web address]) on 05/27/24 at 03:14. Electronically submitted by Darrick Pelaez ([email or web address]). JULIO ADDISON MD May 27, 2024 02:15
[2024-05-27 02:21] LABS: Basophils # (auto) 0.1 10 ^3/uL (0-0.2); Basophils % (auto) 1.2 % (0.0-2.0); Eosinophils # (auto) 0.3 10 ^3/uL (0-0.8); Eosinophils % (auto) 2.9 % (0.0-7.0); Hematocrit 36.2 % (36.0-46.0); Hemoglobin 12.3 g/dL (12.2-16.2); Lymphocytes # (auto) 3.1 10 ^3/uL (0.4-5.4); Lymphocytes % (auto) 31.1 % (10.0-50.0); Mean Corpuscular Hemoglobin 30.6 pg (28.0-32.0); Monocytes # (auto) 0.7 10 ^3/uL (0-1.3); Monocytes % (auto) 6.5 % (0.0-12.0); Neutrophils # (auto) 5.8 10 ^3/uL (1.6-8.6); Neutrophils % (auto) 58.3 % (37.0-80.0); Platelet Count (auto) 214 10^3/uL (140-450); Red Blood Cells 4.03 10^6/uL (4.0-5.20); Red Cell Distribution Width 14.8 % (11.8-14.3)
[2024-05-27 02:39] LABS: Alanine Aminotransferase 10 U/L (7-40); Alkaline Phosphatase 98 U/L (46-116); Anion Gap 7 (5-15); Aspartate Aminotransferase 13 U/L (13-40); BUN/Creatinine Ratio 16.9 (10.0-20.0); Blood Urea Nitrogen 21 mg/dL (9-23); Calcium 9.2 mg/dL (8.7-10.4); Carbon Dioxide 26 mmol/L (20-31); Chloride 106 mmol/L (98-107); Glucose 100 mg/dL (74-106); Lipase 41 U/L (12-53); Sodium 139 mmol/L (136-145); Total Protein 7.3 g/dL (5.7-8.2)
--- NOTE | 2024-05-27 02:53 | DVH ---
Exam: CT CT AB PEL WO CON-NO ORAL OR IV History: left flank pain Comparison Study: CT CT AB PEL WO CON-NO ORAL OR IV on DOS: 03/17/24 Technique: Multidetector spiral CT of the abdomen was performed from lung bases to pubic symphysis. I maging was performed without IV contrast. Axial, coronal and sagittal multiplanar reformats were obta ined from the axial data set by the technologist. Radiation Dose : 1. Abdomen/Pelvis: CTDIvol 21.45 mGy, DLP 1062.51 mGy*cm. Findings: Evaluation of solid organs is limited due to lack of intravenous contrast use. Lung Bases: Stable appearing 0.7 cm noncalcified pulmonary nodule within the posterior right lower lo be. Otherwise, no acute or significant lung base finding. Normal heart size. No pleural or pericardi al effusion. Liver: The liver is normal in size. No focal lesions. Gallbladder and Biliary Tree: Unremarkable Spleen: Unremarkable Pancreas: The pancreas is grossly normal in appearance. Adrenal Glands: Unremarkable Kidneys: Stable appearing moderate bilateral hydroureteronephrosis without evidence of an obstructing renal or ureteral calculus. Bladder: Once again, there is diffuse slightly irregular appearing wall thickening of the urinary luciano dder, most notably within the superior aspect, suspicious for possible neoplastic process. Bowel: The stomach is grossly normal in appearance. Small bowel and colon are normal in caliber and d istribution. Retained colonic stool noted. Sigmoid diverticulosis. The appendix is not visualized; ho wever, no secondary findings of acute appendicitis identified. Ascites: Absent Lymphadenopathy: No mesenteric, retroperitoneal or periportal lymphadenopathy. Abdominal Wall and Mesentery: Unremarkable. Vasculature: The visualized abdominal aorta is normal in size and caliber. Atherosclerotic vascular c alcifications redemonstrated throughout the aorta and major branching vessels. Evaluation of abdomina l and pelvic vessels is limited due to lack of intravenous contrast. Pelvic Organs: Unremarkable Musculoskeletal: No aggressive focal bony lesions, acute fractures or dislocation. IMPRESSION: 1. No acute abdominal or pelvic findings. 2. Stable appearing moderate bilateral hydroureteronephrosis without evidence of an obstructing renal or ureteral calculus. 3. Stable appearing diffuse irregular urinary bladder wall thickening, most notably within the superi or aspect, suspicious for malignancy. 4. Sigmoid diverticulosis. 5. Stable appearing posterior right lower lobe pulmonary nodule. Radiation optimization: All CT scans at this facility use at least one of these dose optimization irene hniques: automated exposure control mA and/or kV adjustment per patient size (includes targeted exam s where dose is matched to clinical indication) or iterative reconstruction.
[2024-05-27 03:17] LABS: Bilirubin, Total 0.3 mg/dL (0.2-1.0); Potassium 3.5 mmol/L (3.5-5.1)
[2024-05-27] MEDS: ONDANSETRON HCL 4 MG/2 ML VIAL IV ONE (03:25)
[2024-05-27] MEDS: MORPHINE SULFATE 4 MG/ML SYR/VIAL IV ONE (03:26)
[2024-05-27] MEDS: cefTRIAXone 1GM/50ML D5W 50 ML IV ONE (04:04)
[2024-05-27 04:56] LABS: Urine Bacteria FEW /hpf (None Seen); Urine Blood 1+ /uL (Negative); Urine Clarity Turbid (Clear); Urine Color Colorless (Yellow); Urine Protein, UAD Negative (Negative); Urine Specific Gravity 1.003 (1.001-1.035); Urine Squamous Epithelial Cell FEW /hpf (<5); Urine Urobilinogen Normal (Negative); Urine WBC 116 /HPF (0-5); Urine WBC Clumps PRESENT /hpf (None Seen); Urine pH 6.5 (5.0-9.0)
[2024-05-27] MEDS ORDERED: KETOROLAC TROMETH 30 MG/ML 1ML VIAL IV PRN ×2 (10:30→16:00)
[2024-05-27] MEDS: CEFEPIME 1GM/ 50ML 50 ML IV ONE (10:59)
[2024-05-27] MEDS: ACETAMINOPHEN 325 MG TAB PO SCH (14:36)
[2024-05-27 14:56] LABS: Urine Bacteria None Seen /hpf (None Seen); Urine Blood 1+ /uL (Negative); Urine Clarity Clear (Clear); Urine Color Colorless (Yellow); Urine Protein, UAD 2+ (Negative); Urine Specific Gravity 1.006 (1.001-1.035); Urine Squamous Epithelial Cell FEW /hpf (<5); Urine Urobilinogen Normal (Negative); Urine WBC 15 /HPF (0-5); Urine pH 6.5 (5.0-9.0)
--- NOTE | 2024-05-27 15:22 | DVHHP2 ---
Assessment/Plan Assessment/Plan H&P 73 yo F with hx of CVA, IDDM, HTN, CAD s/p JODIE recently admitted with UTI, discharged with bactrim but not taking meds at home. Returned to ED with flank pain since 3 days. Prior culture with colonization. Seen in ED, vitals stable, CKD on baseline, hughes in place. No CVA tenderness. Imaging concerning for bladder mass, seen by urology on prior adm but have not follow up, planned for outpatient cysto. Baseline ambulating with walker. 130 PY tobacco use, denies alcohol and drugs, occasional marijuana use. Labs ekg imaging reviewed Assessment and plan Pyelonephritis IDDM HTN CAD s/p JODIE Ex smoker HLD Hx of CVA Subcm lung nodule Bladder mass Admit to medsurg escalate abx to cefepime Fluid resus Basal bolus insulin Resume amlodipine, lipitor, lisinopril, asa, metop succinate Follow up with urology outpatient Repeat CT in 6 months as outpatient Diet cardiac DVT ppx lovenox Code status full code Plan discussed with: Patient My Orders Orders - CLARE RAMOS MD Procedure Category Date Status Time Admit ADMIT 05/27/24 Transmitted 10:14 Notify Of Changes JANINA 05/27/24 In Process From Base 10:14 Urine Bacterial ANISHA 05/27/24 In Process Culture 10:19 Acetaminophen Tablet PHA 05/27/24 In Process (Tylenol Tablet) 14:00 Ketorolac Injection PHA 05/27/24 In Process (Toradol Injection) 10:30 Cefepime 1gm/ 50ml PHA 05/27/24 In Process (Maxipime 1gm/50ml) 22:00 Mrsa Screen ANISHA 05/27/24 Logged 10:20 Basic Metabolic Panel LAB 05/28/24 Verified 04:00 Complete Blood Count LAB 05/28/24 Verified 04:00 Date of Service: May 27, 2024 Billing Provider: CLARE RAMOS MD Common Visit Codes: [id number] INP/OBS CARE (HIGH) CLARE RAMOS MD May 27, 2024 15:22
[2024-05-27] MEDS ORDERED: DEXTROSE (50%) 50ML SYRG IV PRN (15:30)
[2024-05-27] MEDS: INSULIN LISPRO (HUMAN) 100 UNITS/ML ML SC SCH (17:00)
[2024-05-27] MEDS: LISINOPRIL 20 MG TAB PO ONE (17:46)
[2024-05-27] MEDS: amLODIPine BESYLATE 5 MG TAB PO ONE (17:47)
[2024-05-27] MEDS: ACCU-CHEK COMFORT CURVE STRIP VI SCH (17:47)
[2024-05-27] MEDS: CEFEPIME 1GM/ 50ML 50 ML IV SCH (21:21)
[2024-05-27] MEDS: INSULIN LANTUS (GLARGINE) 1 /0.01ml (100units/ml) SC SCH (21:22)
[2024-05-27] MEDS: ATORVASTATIN 20 MG TAB PO SCH (21:31)
[2024-05-28 01:00] VITALS: BP 119/51; PULSE 56; RESP 18; TEMP 97.4; O2SAT 97
[2024-05-28 05:00] VITALS: BP 149/60; PULSE 60; RESP 18; TEMP 97.6; O2SAT 99
[2024-05-28 06:34] LABS: Basophils # (auto) 0.1 10 ^3/uL (0-0.2); Basophils % (auto) 0.9 % (0.0-2.0); Eosinophils # (auto) 0.2 10 ^3/uL (0-0.8); Eosinophils % (auto) 3.9 % (0.0-7.0); Lymphocytes # (auto) 2.9 10 ^3/uL (0.4-5.4); Lymphocytes % (auto) 46.8 % (10.0-50.0); Monocytes # (auto) 0.6 10 ^3/uL (0-1.3); Monocytes % (auto) 9.5 % (0.0-12.0); Neutrophils # (auto) 2.4 10 ^3/uL (1.6-8.6); Neutrophils % (auto) 38.9 % (37.0-80.0); Nucleated Red Blood Cells % 0.1 %; White Blood Cell 6.2 10^3/uL (4.4-10.8)
[2024-05-28 06:35] LABS: Hematocrit 37.2 % (36.0-46.0); Hemoglobin 12.1 g/dL (12.2-16.2); Mean Corpuscular Hgb Conc. 32.7 g/dL (32.0-36.0); Mean Corpuscular Volume 91.8 fL (80.0-100.0); Platelet Count (auto) 212 10^3/uL (140-450); Red Blood Cells 4.05 10^6/uL (4.0-5.20); Red Cell Distribution Width 15.5 % (11.8-14.3)
[2024-05-28 06:42] LABS: Anion Gap 6 (5-15); Carbon Dioxide 27 mmol/L (20-31); Chloride 105 mmol/L (98-107); Sodium 138 mmol/L (136-145)
[2024-05-28 06:43] LABS: Calcium 9.2 mg/dL (8.7-10.4)
[2024-05-28 06:48] LABS: BUN/Creatinine Ratio 15.5 (10.0-20.0); Glucose 78 mg/dL (74-106)
[2024-05-28 06:50] LABS: Blood Urea Nitrogen 25 mg/dL (9-23)
--- NOTE | 2024-05-28 08:38 | DVHPN2 ---
Assessment/Plan Assessment/Plan H&P 73 yo F with hx of CVA, IDDM, HTN, CAD s/p JODIE recently admitted with UTI, discharged with bactrim but not taking meds at home. Returned to ED with flank pain since 3 days. Prior culture with colonization. Seen in ED, vitals stable, CKD on baseline, hughes in place. No CVA tenderness. Imaging concerning for bladder mass, seen by urology on prior adm but have not follow up, planned for outpatient cysto. Baseline ambulating with walker. 130 PY tobacco use, denies alcohol and drugs, occasional marijuana use. Seen by me today during rounds, pain improved Physical exam Elderly female AOx3 clear breath sounds s1 s2 RRR abdomen soft nontender mild cva tenderness no midline tenderness trace LE edema Labs ekg imaging reviewed Assessment and plan Pyelonephritis IDDM HTN CAD s/p JODIE Ex smoker HLD Hx of CVA Subcm lung nodule Bladder mass JAKE on CKD 3a Admit to medsurg c/w cefepime follow urine cultrue Basal bolus insulin Resume amlodipine, lipitor, lisinopril, asa, metop succinate Pain management start gabapentin Follow up with urology outpatient Repeat CT in 6 months as outpatient Avoid nephrotoxic Diet cardiac DVT ppx lovenox Code status full code Plan discussed with: Patient My Orders Orders - CLARE RAMOS MD Procedure Category Date Status Time Admit ADMIT 05/27/24 Transmitted 10:14 Notify Of Changes JANINA 05/27/24 In Process From Base 10:14 Urine Bacterial ANISHA 05/27/24 In Process Culture 10:19 Acetaminophen Tablet PHA 05/27/24 In Process (Tylenol Tablet) 14:00 Cefepime 1gm/ 50ml PHA 225 In Process (Maxipime 1gm/50ml) 22:00 Mrsa Screen ANISHA 05/27/24 In Process 10:20 Amlodipine Tablet PHA 05/28/24 In Process (Norvasc Tablet) 10:00 Lisinopril Tablet PHA 05/28/24 In Process (Zestril Tablet) 10:00 Metoprolol Xl PHA /05/19 In Process Succinate (Toprol Xl) 10:00 Aspirin Enteric PHA 05/28/24 In Process Coated Tablet 10:00 Atorvastatin (Lipitor) PHA 05/27/24 In Process 22:00 Enoxaparin Sodium PHA 4/3/25 In Process (Lovenox) 10:00 Code Status CODE 05/27/24 Transmitted 15:21 Cardiac DIET 05/27/24 Transmitted Diet-2gna,Lofat,Lochol Dinner Insulin Lantus PHA 05/27/24 In Process (Glargine) (Lantus) 22:00 Insulin Lispro PHA 05/27/24 In Process (Human) (Humalog) 17:00 Glucose Blood PHA 05/27/24 In Process (Accu-Chek Comfort 17:00 Dextrose 50% Syringe PHA 05/27/24 In Process 15:30 Ketorolac Injection PHA 05/27/24 In Process (Toradol Injection) 16:00 * Tap Builder CONS 05/27/24 Transmitted Consult Date of Service: May 28, 2024 Billing Provider: CLARE RAMOS MD Common Visit Codes: [id number] INP/OBS CARE(HIGH) CLARE RAMOS MD May 28, 2024 08:38
[2024-05-28] MEDS ORDERED: ACETAMINOPHEN 325 MG TAB PO PRN (08:45)
[2024-05-28 09:00] VITALS: BP 130/80; PULSE 68; RESP 18; TEMP 98.1; O2SAT 95
[2024-05-28] MEDS: amLODIPine BESYLATE 5 MG TAB PO SCH (10:15)
[2024-05-28] MEDS: ASPirin-EC 81 mg tab PO SCH (10:15)
[2024-05-28] MEDS: METOPROLOL SUCCINATE XL 50 MG TAB PO SCH (10:16)
[2024-05-28] MEDS: LISINOPRIL 20 MG TAB PO SCH (10:16)
[2024-05-28] MEDS: ENOXAPARIN SOD 30 MG/0.3 ML SYRINGE SC SCH (10:17)
[2024-05-28 13:08] VITALS: BP 121/66; PULSE 55; RESP 17; TEMP 98.1; O2SAT 98
[2024-05-28] MEDS: HYDROcodone-ACET 5/325MG TAB PO PRN (13:31)
[2024-05-28] MEDS: GABAPENTIN 100 MG CAP PO SCH (15:18)
[2024-05-28 17:40] VITALS: BP 101/44; PULSE 50; RESP 17; TEMP 97.9; O2SAT 96
[2024-05-28 21:00] VITALS: BP 123/69; PULSE 55; RESP 18; TEMP 97.9; O2SAT 96
[2024-05-29 05:00] VITALS: BP 106/55; PULSE 62; RESP 17; TEMP 98.8; O2SAT 96
[2024-05-29 05:27] LABS: Basophils # (auto) 0.1 10 ^3/uL (0-0.2); Basophils % (auto) 1.1 % (0.0-2.0); Eosinophils # (auto) 0.4 10 ^3/uL (0-0.8); Eosinophils % (auto) 5.4 % (0.0-7.0); Lymphocytes # (auto) 3.5 10 ^3/uL (0.4-5.4); Lymphocytes % (auto) 46.2 % (10.0-50.0); Mean Corpuscular Hemoglobin 29.8 pg (28.0-32.0); Mean Corpuscular Hgb Conc. 33.4 g/dL (32.0-36.0); Mean Corpuscular Volume 89.4 fL (80.0-100.0); Monocytes # (auto) 0.7 10 ^3/uL (0-1.3); Monocytes % (auto) 9.6 % (0.0-12.0); Neutrophils # (auto) 2.9 10 ^3/uL (1.6-8.6); Neutrophils % (auto) 37.7 % (37.0-80.0); Nucleated Red Blood Cells % 0.1 %; Platelet Count (auto) 210 10^3/uL (140-450); Red Blood Cells 3.69 10^6/uL (4.0-5.20); Red Cell Distribution Width 15.5 % (11.8-14.3); White Blood Cell 7.6 10^3/uL (4.4-10.8)
[2024-05-29 05:33] LABS: Chloride 104 mmol/L (98-107); Potassium 4.2 mmol/L (3.5-5.1)
[2024-05-29 05:34] LABS: Anion Gap 5 (5-15); Calcium 8.7 mg/dL (8.7-10.4); Carbon Dioxide 26 mmol/L (20-31)
[2024-05-29 05:36] LABS: Sodium 135 mmol/L (136-145)
[2024-05-29 05:39] LABS: BUN/Creatinine Ratio 19.8 (10.0-20.0)
[2024-05-29 05:45] LABS: Blood Urea Nitrogen 35 mg/dL (9-23); Glucose 113 mg/dL (74-106)
[2024-05-29 13:00] VITALS: BP 105/70; PULSE 61; RESP 18; TEMP 98.3; O2SAT 97
--- NOTE | 2024-05-29 14:06 | DVHPN2 ---
Assessment/Plan Assessment/Plan H&P 73 yo F with hx of CVA, IDDM, HTN, CAD s/p JODIE recently admitted with UTI, discharged with bactrim but not taking meds at home. Returned to ED with flank pain since 3 days. Prior culture with colonization. Seen in ED, vitals stable, CKD on baseline, hughes in place. No CVA tenderness. Imaging concerning for bladder mass, seen by urology on prior adm but have not follow up, planned for outpatient cysto. Baseline ambulating with walker. 130 PY tobacco use, denies alcohol and drugs, occasional marijuana use. Seen by me today during rounds, needs PT Physical exam Elderly female AOx3 clear breath sounds s1 s2 RRR abdomen soft nontender mild cva tenderness no midline tenderness trace LE edema Labs ekg imaging reviewed Assessment and plan Pyelonephritis IDDM HTN CAD s/p JODIE Ex smoker HLD Hx of CVA Subcm lung nodule Bladder mass JAKE on CKD 3a Admit to medsurg c/w cefepime follow urine cultrue Basal bolus insulin Resume amlodipine, lipitor, lisinopril, asa, metop succinate Pain management start gabapentin Follow up with urology outpatient Repeat CT in 6 months as outpatient Avoid nephrotoxic Diet cardiac DVT ppx lovenox Code status full code Plan discussed with: Patient My Orders Orders - CLARE RAMOS MD Procedure Category Date Status Time Pt Request For Service PT 05/29/24 Logged 13:09 Date of Service: May 29, 2024 Billing Provider: CLARE RAMOS MD Common Visit Codes: [id number] INP/OBS CARE(HIGH) CLARE RAMOS MD May 29, 2024 14:06
[2024-05-29 17:00] VITALS: BP 112/60; PULSE 56; RESP 18; TEMP 98; O2SAT 95
[2024-05-29 21:00] VITALS: BP 118/65; PULSE 68; RESP 18; TEMP 98; O2SAT 97
[2024-05-30 01:00] VITALS: BP 118/65; PULSE 68; RESP 18; TEMP 97.4; O2SAT 97
[2024-05-30 04:24] VITALS: BP 110/62; PULSE 60; RESP 14; TEMP 98.1; O2SAT 96
[2024-05-30 09:00] VITALS: BP 111/45; PULSE 57; RESP 17; TEMP 97.7; O2SAT 98
[2024-05-30] MEDS: SODIUM CHLORIDE 0.9% 1,000 ML IV SCH (09:15)
[2024-05-30] MEDS: SODIUM CHLORIDE 0.9% 500 ML IV ONE (09:15)
[2024-05-30 13:00] VITALS: BP 112/58; PULSE 60; RESP 18; TEMP 98; O2SAT 97
--- NOTE | 2024-05-30 13:45 | DVHPN2 ---
Assessment/Plan Assessment/Plan H&P 73 yo F with hx of CVA, IDDM, HTN, CAD s/p JODIE recently admitted with UTI, discharged with bactrim but not taking meds at home. Returned to ED with flank pain since 3 days. Prior culture with colonization. Seen in ED, vitals stable, CKD on baseline, hughes in place. No CVA tenderness. Imaging concerning for bladder mass, seen by urology on prior adm but have not follow up, planned for outpatient cysto. Baseline ambulating with walker. 130 PY tobacco use, denies alcohol and drugs, occasional marijuana use. Seen by me today during rounds, urine culture with VRE, placed on linezolid Physical exam Elderly female AOx3 clear breath sounds s1 s2 RRR abdomen soft nontender mild cva tenderness no midline tenderness trace LE edema Labs ekg imaging reviewed Assessment and plan Pyelonephritis VRE IDDM HTN CAD s/p JODIE Ex smoker HLD Hx of CVA Subcm lung nodule Bladder mass JAKE on CKD 3a deconditioning Admit to medsurg d/c cefepime, add linezolid follow urine cultrue Basal bolus insulin Resume amlodipine, lipitor, lisinopril, asa, metop succinate Pain management start gabapentin Follow up with urology outpatient Repeat CT in 6 months as outpatient Avoid nephrotoxic c/w PT Diet cardiac DVT ppx lovenox Code status full code Plan discussed with: Patient My Orders Orders - CLARE RAMOS MD Procedure Category Date Status Time Pt Request For Service PT 05/29/24 Logged 14:05 Sodium Chloride 0.9% PHA 05/30/24 In Process 09:15 Linzeolid 600 Mg Ivpb PHA 05/30/24 Verified 22:00 Complete Blood Count LAB 05/31/24 Verified 04:00 Date of Service: May 30, 2024 Billing Provider: CLARE RAMOS MD Common Visit Codes: [id number] INP/OBS CARE(HIGH) CLARE RAMOS MD May 30, 2024 13:45
[2024-05-30 18:54] VITALS: BP 121/71; PULSE 65; RESP 16; O2SAT 97
[2024-05-30 21:00] VITALS: BP 101/47; PULSE 63; RESP 18; TEMP 97.9; O2SAT 93
[2024-05-30] MEDS: LINEZOLID 600MG/300ML 300 ML IV SCH (22:00)
[2024-05-31 01:00] VITALS: BP 133/61; PULSE 73; RESP 18; TEMP 98; O2SAT 95
[2024-05-31 05:00] VITALS: BP 105/78; PULSE 54; RESP 16; TEMP 98; O2SAT 96
[2024-05-31 06:16] LABS: Basophils # (auto) 0.1 10 ^3/uL (0-0.2); Basophils % (auto) 0.7 % (0.0-2.0); Eosinophils # (auto) 0.4 10 ^3/uL (0-0.8); Eosinophils % (auto) 5.2 % (0.0-7.0); Hematocrit 32.4 % (36.0-46.0); Hemoglobin 10.9 g/dL (12.2-16.2); Lymphocytes # (auto) 3.4 10 ^3/uL (0.4-5.4); Lymphocytes % (auto) 39.3 % (10.0-50.0); Mean Corpuscular Hemoglobin 30.3 pg (28.0-32.0); Mean Corpuscular Hgb Conc. 33.5 g/dL (32.0-36.0); Mean Corpuscular Volume 90.5 fL (80.0-100.0); Monocytes # (auto) 0.8 10 ^3/uL (0-1.3); Monocytes % (auto) 9.1 % (0.0-12.0); Neutrophils # (auto) 3.9 10 ^3/uL (1.6-8.6); Neutrophils % (auto) 45.7 % (37.0-80.0); Nucleated Red Blood Cells % 0.1 %; Platelet Count (auto) 210 10^3/uL (140-450); Red Blood Cells 3.59 10^6/uL (4.0-5.20); Red Cell Distribution Width 15.3 % (11.8-14.3); White Blood Cell 8.6 10^3/uL (4.4-10.8)
[2024-05-31 08:00] VITALS: PULSE 58; RESP 16; O2SAT 98
[2024-05-31 08:30] VITALS: BP 97/50; PULSE 58; RESP 16; TEMP 98; O2SAT 98
[2024-05-31] MEDS ORDERED: LINE1TAB6 PO (16:02)
== END 2024-05-31 14:35 | disposition left against medical advice (07) | DRG 690 ==
LOC: ER 01:41 → EDBD 01:41 → OVERFLOW 10:14 → CENTRAL 11:46
PROVIDERS: ADMIT Student in an Organized Health Care Education/Training Program; ATTEND Student in an Organized Health Care Education/Training Program
DX: N13.6 Pyonephrosis (principal); Z16.21 Resistance to vancomycin; N32.9 Bladder disorder, unspecified; E11.22 Type 2 diabetes mellitus with diabetic chronic kidney disease; R91.1 Solitary pulmonary nodule; Z53.29 Procedure and treatment not carried out because of patient's decision for other reasons; N18.31 Chronic kidney disease, stage 3a; I12.9 Hypertensive chronic kidney disease with stage 1 through stage 4 chronic kidney disease, or unspecified chronic kidney disease; E78.5 Hyperlipidemia, unspecified; E86.0 Dehydration; I25.10 Atherosclerotic heart disease of native coronary artery without angina pectoris; K57.30 Diverticulosis of large intestine without perforation or abscess without bleeding; Z95.5 Presence of coronary angioplasty implant and graft; Z86.73 Personal history of transient ischemic attack (TIA), and cerebral infarction without residual deficits; Z79.4 Long term (current) use of insulin; Z87.891 Personal history of nicotine dependence; Z88.0 Allergy status to penicillin; Z79.899 Other long term (current) drug therapy; Z79.82 Long term (current) use of aspirin; B95.2 Enterococcus as the cause of diseases classified elsewhere; N17.0 Acute kidney failure with tubular necrosis
CPT/HCPCS: 36415; 74176; 80048; 80053; 81001; 82962; 83605; 83690; 85025; 87040; 87081; 87086; 87088; 87186; 97163; 99291; G0378; J1815; J2405

== ENCOUNTER 2024-08-06 07:07 | Inpatient (IN) | payer OTHER, MEDICAID ==
[~2024-08-06] VITALS: Ht 162.6 cm; Wt 91.4 kg
[~2024-08-06 07:07] MED LIST changes: +LINE1TAB6 PO
--- NOTE | 2024-08-06 07:17 | ED.PDOC ---
HPI Comments HPI: This is the 73 year old female BRIANNA presenting to the ED with chief complaint of left jaw pain. Patient reports that she has been experiencing left sided jaw pain that radiates down to her left shoulder and then down her left arm with associated left flank pain since this morning. EMS relays that the daughter had called 911 at the request of the patient, but notes that the patient had a recent fall last week of unknown mechanism. EMS states patient has history of recent UTI, but has been non-compliant with medication at home to treat it. EMS notes patient has previous left sided deficits from a CVA, but arm strength is normal. Patient is bed-ridden. Initial Vitals BP: 143/68 HR: 56 RR: 18 O2: 99% Temp: 99F Past Medical History: CVA with Lt sided deficits, CAD, Dementia, HTN, CKF, Arthritis, NM, COPD, DM, Bed-ridden Past Surgical History: Denies Social History: Denies ETOH, smoking, and drug use. Allergies: Penicillins HPI: Poor Historian. REVIEW OF SYSTEMS: CONSTITUTIONAL: Denies acute: fever, diaphoresis, chills, HEAD: Denies acute: headache, photophobia Eyes: Denies acute: Double vision, vision loss, eye pain, eye discharge. EARS: Denies acute: tinnitus, hearing loss, ear discharge, ear pain, THROAT: Denies acute: sore throat, swelling, difficulty swallowing , pain with swallowing, change in voice. NECK: Denies acute: neck pain, neck swelling, stiff neck. HEART: Denies acute : chest pain, palpitations, LUNGS: Denies acute: SOB, wheezing, cough, hemoptysis ABDOMEN: Denies acute: abdominal pain, Nausea, Vomiting, diarrhea, melena , hematemesis, hematochezia SKIN: Denies acute: rash, redness, lesions, itchiness. EXTREMITIES: Denies acute: calf pain, numbness, tingling, weakness, Denies acute: Low back pain. Neuro: Denies acute: focal neurological deficit, motor or sensory focal neurological deficit, tremors, seizure like activity, confusion, dizziness, change in mental status, loss of bowel or bladder function, cauda equina like symptoms. : Denies acute: dysuria, hematuria, increase in urinary frequency. PSYCH: Denies acute: hallucination, suicidal ideation, homicidal ideation. FEMALE: Denies acute: abnormal vaginal bleeding, foul odor, unusual discharge. PHYSICAL EXAM: General: ----[id number]----acute distress, awake and alert. Head: normocephalic, atraumatic. Neck: supple, trachea is midline, no swelling. Throat: Normal phonation. Eyes:, no erythema, no purulent discharge, no proptosis, no icterus. Heart: regular rate, regular rhythm, no significant murmur appreciated. Lungs: no apparent respiratory distress, Able to speak in full sentences. No wheezing, no rhonchi, no crackles. No stridors Clear to auscultation bilaterally. Abdomen: non tender to palpation, slightly distended, soft, no guarding, no rebound, + bowel sounds. Obese. Neuro: Awake, Alert, oriented to name, self, follows commands. EMS states history of dementia. Speech is normal. Skin: no petechia, no purpura, no cyanosis, non-pale, not jaundice. Lower extremities: --trace bilateral - Pitting edema no deformity, no focal swelling, no calf TTP. Makes eye contact. moves all four extremities. With left lower extremity weakness from a remote stroke. Able to raise bilateral upper extremities and hold it up above her head against gravity. Face: no apparent facial droop. Patient is bed-bound. Stroke: finger to nose cerebellar testing is intact. No pronator drift. 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 No nuchal rigidity, Kernig's sign, Brudzinski's sign, no meningeal signs. ED COURSE: Time Seen by MD: 07:15 Primary Care Provider: UNKNOWN Reviewed Notes: Medications, Allergies Allergies: Coded Allergies: Penicillins (Verified Allergy, Unknown, 03/16/24) Home Meds Active Scripts Sulfamethoxazole W/Trimethopri (Bactrim Ds Tablet) 1 Tab Tb, 1 TAB PO BID, #20 TAB Prov:JOHN BUTLER MD 08/10/24 Linezolid (Zyvox) 600 Mg Tab, 600 MG PO BID for 14 Days, #28 TAB Prov:CLARE RAMOS MD 05/31/24 Levofloxacin Hemihydrate (LEVAQUIN 500 MG) 500 Mg Tab, 1 TAB PO DAILY, #7 TAB Prov:JOHN BUTLER MD 03/19/24 Reported Medications Insulin Glargine (Basaglar Kwikpen) 100 Unit/Ml Inj, 27 UNITS SC HS 03/16/24 Metoprolol Succinate (Metoprolol Succinate Er) 25 Mg Tab, 1 TAB PO DAILY 03/16/24 Amlodipine Besylate (Amlodipine Besylate) 5 Mg Tab, 1 TAB PO DAILY 03/16/24 Aspirin (Aspirin Low Dose) 81 Mg Chw, 1 TAB PO DAILY 03/16/24 Atorvastatin Calcium (ATORVASTATIN CALCIUM) 80 Mg Tab, 40 MG PO DAILY 03/16/24 Lisinopril (Lisinopril) 40 Mg Tab, 1 TAB PO DAILY 03/16/24 Information Source: Patient, Emergency Med Personnel Mode of Arrival: EMS Was a procedure done? Was a procedure done?: No CP Differential Dx Differential Diagnosis: AV Block 1st Degree, AV Block 2nd Degree, AV Block 3rd Degree, Heart Failure, Hypoxia, N/A Differential Diagnosis: Other (Ddx include but not limitied to gastritis, musculoskeletal pain, radiculopathy, atypical chest pain, dissection, aneurysm, ACS, unstable angina, hiatal hernia, GERD, anxiety, costochondritis, PE, pneumothroax, neoplasm, cardiac ischemia, drug abuse, anemia.) X-Ray, Labs, Meds, VS Vital Signs Date Time Temp Pulse Resp B/P (MAP) Pulse Ox O2 Delivery O2 Flow Rate FiO2 08/06/24 11:44 98.1 45 18 142/64 (90) 95 98.1 08/06/24 10:54 98.1 54 18 132/65 (87) 96 98.1 08/06/24 10:39 45 08/06/24 08:30 53 16 95 Room Air* 0 21 08/06/24 08:00 48 08/06/24 07:51 52 18 95 Room Air* 0 21 08/06/24 07:50 98.1 52 16 133/82 (99) 95 98.1 08/06/24 07:16 99.0 56 18 143/68 (93) 94 99.0 Lab Test 08/06/24 10:17 08/06/24 08:22 08/06/24 07:38 Range/Units Troponin I High Sensitivity 22 20 22 </=34 ng/L White Blood Count 7.6 4.4-10.8 10^3/uL Red Blood Count 3.81 L 4.0-5.20 10^6/uL Hemoglobin 11.4 L 12.2-16.2 g/dL Hematocrit 33.0 L 36.0-46.0 % Mean Corpuscular Volume 86.6 80.0-100.0 fL Mean Corpuscular Hemoglobin 30.0 28.0-32.0 pg Mean Corpuscular Hemoglobin Concent 34.7 32.0-36.0 g/dL Red Cell Distribution Width 14.0 11.8-14.3 % Platelet Count 217 140-450 10^3/uL Mean Platelet Volume 9.3 6.9-10.8 fL Neutrophils (%) (Auto) 51.8 37.0-80.0 % Lymphocytes (%) (Auto) 35.8 10.0-50.0 % Monocytes (%) (Auto) 8.6 0.0-12.0 % Eosinophils (%) (Auto) 2.4 0.0-7.0 % Basophils (%) (Auto) 1.4 0.0-2.0 % Neutrophils # (Auto) 3.9 1.6-8.6 10 ^3/uL Lymphocytes # (Auto) 2.7 0.4-5.4 10 ^3/uL Monocytes # (Auto) 0.6 0-1.3 10 ^3/uL Eosinophils # (Auto) 0.2 0-0.8 10 ^3/uL Basophils # (Auto) 0.1 0-0.2 10 ^3/uL Nucleated Red Blood Cells 0.1 % Sodium Level 141 136-145 mmol/L Potassium Level 3.8 3.5-5.1 mmol/L Chloride Level 107 98-107 mmol/L Carbon Dioxide Level 23 20-31 mmol/L Anion Gap 11 5-15 Blood Urea Nitrogen 46 H 9-23 mg/dL Creatinine 1.48 H 0.550-1.02 mg/dL Glomerular Filtration Rate Calc 37 >90 mL/min BUN/Creatinine Ratio 31.1 H 10.0-20.0 Serum Glucose 86 74-106 mg/dL Hemoglobin A1c 5.9 H <5.7 % A1C Calcium Level 8.7 8.7-10.4 mg/dL Total Bilirubin 0.3 0.2-1.0 mg/dL Aspartate Amino Transferase (AST) 17 0-34 U/L Alanine Aminotransferase (ALT) 11 7-40 U/L Alkaline Phosphatase 98 46-116 U/L Total Protein 7.2 5.7-8.2 g/dL Albumin 4.1 3.2-4.8 g/dL [place] [id number] Ph: [phone] DIAGNOSTIC IMAGING Diagnostic Imaging Report : [id number] Signed PATIENT: OTTO MCCABE ACCT: [id number] UNIT: [id number] : 1950 LOC: ER ROOM / BED: / AGE / SEX: 73 / F ADM STATUS: REG ER SERVICE 6 ORDERING PHYSICIAN: ALBAN WOODS DO PROCEDURE(s): CXRP - CHEST PORTABLE REASON: L jaw,arm shoulder pain ORDER NUMBER(s): [id number], ACCESSION NUMBER(s): [id number] CHEST RADIOGRAPH Indication: L jaw,arm shoulder pain Technique: Single frontal view of the chest was obtained Comparison: XY CHEST XRAY 1 VIEW on DOS: 03/16/24 FINDINGS: Lines and Tubes: None Lungs: No focal consolidation. Pleura: No effusion. No pneumothorax. Cardiomediastinal contours: Unremarkable Bones: No acute osseous abnormality. IMPRESSION: 1. No acute cardiopulmonary disease. ATED BY: PATRICIA GARCIA MD DICTATED DATE/TIME: 08/06/24803 SIGNED BY: PATRICIA GARCIA MD SIGNED DATE/TIME: 08/06/24803 CC: Time of 1ST Reevaluation: 08:15 Reevaluation 1ST: Unchanged Patient Education/Counseling: Diagnosis, Treatment Family Education/Counseling: No Family Present Comments Patient presented with the above HPI.---cardiac---workup was initiated. patient was found with the above mentioned diagnosis. the following medications were ordered: please refer to order lists of meds and tests obtained by myself Dr. Woods. Patient ED course and VS have been stabilized. Patient has been reassessed in the ED and remained in a stable condition. Pertinent incidental findings were discussed with the patient and/or family. Patient/family voices understanding and is agreeable with plan. Patient has been observed in the ED adequate length of time to insure improvement/stability. Escalation of care considered: Consideration of escalation to observation or admission Patient was ADMITTED to the medicine team for further evaluation and treatment of their presentation. All the reports of any imaging studies that were ordered by myself were reviewed by myself. Departure 1 Departure Time of Disposition: 08:53 Impression: Primary Impression: Anginal equivalent Additional Impression: Sinus bradycardia Disposition: 09 ADMITTED INPATIENT Admit to: Tele Condition: Guarded e-Prescriptions Sulfamethoxazole W/Trimethopri (Bactrim Ds Tablet) 1 Tab Tb 1 TAB PO BID, #20 TAB Prov: JOHN BUTLER MD 08/10/24 Discharged With: Self Critical Care Note Critical Care Time?: No Heart Score Heart Score: Heart Score Response (Comments) Value History Moderate Suspicious 1 EKG Normal 0 Age >65 2 Risk Factors >3 or Hx ASHD 2 Troponin Normal limit 0 Total 5 I personally scribed for ALBAN WOODS DO ([email or web address]) on 08/06/24 at 07:17. Electronically submitted by Rickey Aparicio ([email or web address]). I personally scribed for ALBAN WOODS DO ([email or web address]) on 08/06/24 at 07:23. Electronically submitted by Rickey Aparicio ([email or web address]). I personally scribed for ALBAN WOODS DO ([email or web address]) on 08/06/24 at 08:22. Electronically submitted by Rickey Aparicio ([email or web address]). I personally scribed for ALBAN WOODS DO ([email or web address]) on 08/06/24 at 09:28. Electronically submitted by Rickey Aparicio ([email or web address]). ALBAN WOODS DO Aug 06, 2024 07:17
[2024-08-06 07:51] VITALS: PULSE 52; RESP 18; O2SAT 95
[2024-08-06 07:55] LABS: Basophils # (auto) 0.1 10 ^3/uL (0-0.2); Basophils % (auto) 1.4 % (0.0-2.0); Eosinophils # (auto) 0.2 10 ^3/uL (0-0.8); Eosinophils % (auto) 2.4 % (0.0-7.0); Hemoglobin 11.4 g/dL (12.2-16.2); Lymphocytes # (auto) 2.7 10 ^3/uL (0.4-5.4); Lymphocytes % (auto) 35.8 % (10.0-50.0); Mean Corpuscular Hgb Conc. 34.7 g/dL (32.0-36.0); Mean Corpuscular Volume 86.6 fL (80.0-100.0); Monocytes # (auto) 0.6 10 ^3/uL (0-1.3); Monocytes % (auto) 8.6 % (0.0-12.0); Neutrophils # (auto) 3.9 10 ^3/uL (1.6-8.6); Neutrophils % (auto) 51.8 % (37.0-80.0); Nucleated Red Blood Cells % 0.1 %; Platelet Count (auto) 217 10^3/uL (140-450); Red Blood Cells 3.81 10^6/uL (4.0-5.20); White Blood Cell 7.6 10^3/uL (4.4-10.8)
--- NOTE | 2024-08-06 08:06 | DVH ---
CHEST RADIOGRAPH Indication: L jaw,arm shoulder pain Technique: Single frontal view of the chest was obtained Comparison: XY CHEST XRAY 1 VIEW on DOS: 03/16/24 FINDINGS: Lines and Tubes: None Lungs: No focal consolidation. Pleura: No effusion. No pneumothorax. Cardiomediastinal contours: Unremarkable Bones: No acute osseous abnormality. IMPRESSION: 1. No acute cardiopulmonary disease.
[2024-08-06 08:30] VITALS: PULSE 53; RESP 16; O2SAT 95
[2024-08-06] MEDS: NITROGLYCERIN 0.4 MG SL TAB SL ONE (09:00)
[2024-08-06] MEDS: ASPirin-EC 325mg tab PO ONE (09:26)
[2024-08-06 11:10] LABS: Alanine Aminotransferase 11 U/L (7-40); Albumin 4.1 g/dL (3.2-4.8); Alkaline Phosphatase 98 U/L (46-116); Anion Gap 11 (5-15); BUN/Creatinine Ratio 31.1 (10.0-20.0); Blood Urea Nitrogen 46 mg/dL (9-23); Calcium 8.7 mg/dL (8.7-10.4); Carbon Dioxide 23 mmol/L (20-31); Chloride 107 mmol/L (98-107); Glucose 86 mg/dL (74-106); Potassium 3.8 mmol/L (3.5-5.1); Sodium 141 mmol/L (136-145); Total Protein 7.2 g/dL (5.7-8.2)
[2024-08-06 11:11] LABS: Aspartate Aminotransferase 17 U/L (0-34); Bilirubin, Total 0.3 mg/dL (0.2-1.0)
--- NOTE | 2024-08-06 12:27 | DVHHP2 ---
History of Present Illness Reason for Visit: Neck pain History of Present Illness Dasia Raymond is a 73-year-old female with past medical history of CAD, hypertension, diabetes, COPD, CKD, CVA with left-sided hemiparesis, dementia, arthritis, NE status post JODIE, bed-bound, UTI, bladder mass, and lung nodule who presents to the ED with neck pain, left jaw pain radiating to the left shoulder and left arm. Patient reports that her neck pain is 8/10 aching and constant. Patient reports that 3 months ago the neck pain started 3 months ago. Patient also reports that she has been bed-bound for 6 months. She states she fell 4 months ago and not sure where she landed but she does state that she has 3 bad d iscs. She also states that when she fell she went to [place] and got imaging but no the results are rehab shortly afterwards. Patient denies any chest pain, shortness of breath, fever, chills, lightheadedness, weakness, dizziness, abdominal pain, nausea, vomiting, diarrhea, recent sick contacts, recent travels, or recent ingestion of spoiled food Cardiovascular: CAD, HTN, NE Pulmonary: COPD Renal/: Chronic renal insuff, UTI Endocrine: Diabetes Past Medical History Dementia Arthritis Bed-bound for 6 months CVA with left-sided hemiparesis Bladder mass Lung nodule Past Surgical History: Other (Status post JODIE) Family History: DM, Other (Mom with heart disease and dad with diabetes) Smoke: Quit ALCOHOL: none Drugs: None Lives: with Family Domestic Violence: Neg Review of Systems Musculoskeletal: other (Left jaw pain), neck pain, shoulder pain, arm pain Allergies: Coded Allergies: Penicillins (Verified Allergy, Unknown, 03/16/24) Exam Vital Signs Vital Signs Date Time Temp Pulse Resp B/P (MAP) Pulse Ox O2 Delivery O2 Flow Rate FiO2 08/06/24 10:54 98.1 54 18 132/65 (87) 96 98.1 08/06/24 07:51 Room Air* 0 21 General Appearance: Alert, Oriented X3, Cooperative, No acute distress HEENT: Atraumatic, PERRLA, EOMI, Mucous membr. moist/pink Respiratory: Clear to auscultation, Normal air movement Cardiovascular: Normal S1, Normal S2, No murmurs Abdominal: Soft Extremities: Normal pulses Neuro: Normal speech, Normal tone, Sensation intact Psych/Mental Status: Mental status NL, Mood NL Labs/Xrays Labs Test 08/06/24 10:17 08/06/24 07:38 Range/Units Troponin I High Sensitivity 22 </=34 ng/L White Blood Count 7.6 4.4-10.8 10^3/uL Red Blood Count 3.81 L 4.0-5.20 10^6/uL Hemoglobin 11.4 L 12.2-16.2 g/dL Hematocrit 33.0 L 36.0-46.0 % Mean Corpuscular Volume 86.6 80.0-100.0 fL Mean Corpuscular Hemoglobin 30.0 28.0-32.0 pg Mean Corpuscular Hemoglobin Concent 34.7 32.0-36.0 g/dL Red Cell Distribution Width 14.0 11.8-14.3 % Platelet Count 217 140-450 10^3/uL Mean Platelet Volume 9.3 6.9-10.8 fL Neutrophils (%) (Auto) 51.8 37.0-80.0 % Lymphocytes (%) (Auto) 35.8 10.0-50.0 % Monocytes (%) (Auto) 8.6 0.0-12.0 % Eosinophils (%) (Auto) 2.4 0.0-7.0 % Basophils (%) (Auto) 1.4 0.0-2.0 % Neutrophils # (Auto) 3.9 1.6-8.6 10 ^3/uL Lymphocytes # (Auto) 2.7 0.4-5.4 10 ^3/uL Monocytes # (Auto) 0.6 0-1.3 10 ^3/uL Eosinophils # (Auto) 0.2 0-0.8 10 ^3/uL Basophils # (Auto) 0.1 0-0.2 10 ^3/uL Nucleated Red Blood Cells 0.1 % Sodium Level 141 136-145 mmol/L Potassium Level 3.8 3.5-5.1 mmol/L Chloride Level 107 98-107 mmol/L Carbon Dioxide Level 23 20-31 mmol/L Anion Gap 11 5-15 Blood Urea Nitrogen 46 H 9-23 mg/dL Creatinine 1.48 H 0.550-1.02 mg/dL Glomerular Filtration Rate Calc 37 >90 mL/min BUN/Creatinine Ratio 31.1 H 10.0-20.0 Serum Glucose 86 74-106 mg/dL Calcium Level 8.7 8.7-10.4 mg/dL Total Bilirubin 0.3 0.2-1.0 mg/dL Aspartate Amino Transferase (AST) 17 0-34 U/L Alanine Aminotransferase (ALT) 11 7-40 U/L Alkaline Phosphatase 98 46-116 U/L Total Protein 7.2 5.7-8.2 g/dL Albumin 4.1 3.2-4.8 g/dL EXAM: CT CERVICAL WITHOUT CONTRAST INDICATION: neck and back pain EXAM DATE: 08/06/2024 12:31 PM COMPARISON: None TECHNIQUE: Multiple axial CT images of the cervical spine were obtained using bone algorithm. Axial and coronal reformatting was done. Bone and soft tissue windows were reviewed. Radiation Dose Information: CT Dose: CTDI volume is 23 mGy. Dose-length product is 505 mGy*cm FINDINGS: The cervical alignment is intact. No acute cervical spine fracture is identified. The vertebral body heights are intact. No suspicious osseous lesions are identified. Severe degenerative changes throughout the cervical spine Prominent disc osteophyte complex at C4-C5 causing severe bilateral neural foraminal narrowing. There is no prevertebral soft tissue swelling. IMPRESSION: 1. No evidence of acute cervical spine fracture or traumatic malalignment. 2. Severe degenerative changes throughout the cervical spine 3. Prominent disc osteophyte complex at C4-C5 causing severe bilateral neural foraminal narrowing. Consider MRI cervical spine for further characterization. EXAM: CT LS SPINE WO CONTRAST HISTORY: pain COMPARISON: CT scan of the abdomen and pelvis dated 05/27/2024. TECHNIQUE: Noncontrast axial CT images of the lumbar spine were performed. Sagittal and coronal reformatted images were obtained. This CT exam was performed using one or more of the following dose reduction techniques: Automated exposure control, adjustment of the mA and/or kv according to patient size, or the use of iterative reconstruction techniques. Radiation Dose: CT Dose: CTDI volume is 38.5 mGy. Dose-length product is 1219.78 mGy*cm FINDINGS: No fractures are identified about the lumbar spine. There is severe degenerative disc disease and facet arthropathy with moderate spinal canal stenosis at L3-L4 and L4-L5, mild spinal canal stenosis at L1-L2 and L2-L3. There is multilevel significant neural foraminal stenosis including L1-L2 bilaterally, L2-L3 on the left, L3-L4 bilaterally, L4-L5 bilaterally, L5-S1 bilaterally. There is bilateral hydronephrosis and hydroureter, with diffuse urinary bladder wall thickening, not fully imaged here. There are colonic diverticula, not fully imaged here. IMPRESSION: 1. No fracture of the lumbar spine. 2. Severe degenerative disc disease and facet arthropathy with multilevel significant neural foraminal stenosis and multilevel moderate spinal canal stenosis as detailed above. Consider follow-up noncontrast MRI of the lumbar spine for better characterization, especially if the patient complains of lower extremity radicular symptoms. 3. Bilateral hydronephrosis and hydroureter is similar to that seen on previous CT scan dated 05/27/2024. There is urinary bladder wall thickening which may be due to urinary bladder outlet obstruction and/or cystitis. Recommend urology consultation if not already obtained. CHEST RADIOGRAPH Indication: L jaw,arm shoulder pain Technique: Single frontal view of the chest was obtained Comparison: XY CHEST XRAY 1 VIEW on DOS: 03/16/24 FINDINGS: Lines and Tubes: None Lungs: No focal consolidation. Pleura: No effusion. No pneumothorax. Cardiomediastinal contours: Unremarkable Bones: No acute osseous abnormality. IMPRESSION: 1. No acute cardiopulmonary disease. Assessment/Plan Assessment/Plan Assessment JAKE Acute cystitis Intractable neck and back pain status post fall 4 months ago Status bradycardia Severe degenerative disc disease and facet arthropathy with multilevel significant neural foraminal stenosis and multilevel moderate spinal canal stenosis Bilateral hydronephrosis and hydroureter urinary bladder wall thickening which may be due to urinary bladder outlet obstruction and/or cystitis Prominent disc osteophyte complex at C4-C5 causing severe bilateral neural foraminal narrowing. Obesity History of CAD with NE status post JODIE History of hypertension History of diabetes History of COPD History of CKD History of CVA with left-sided deficits History of dementia History of arthritis History of UTI History of bladder mass History of lung nodule Chronically bed-bound Ex-smoker Plan Admit to telemetry IV antibiotics-ceftriaxone Gentle hydration Nitro given ED Aspirin given ED Troponin negative x3 EKG Chest x-ray noted UA Hemoglobin A1c ISS and Accu-Cheks CT cervical spine CT lumbar spine MRI lumbar spine ordered MRI C-spine ordered Marinelli catheter ordered Diet Home medications reconciled DVT prophylaxis-Lovenox PUD prophylaxis-not indicated no history of GERD or GI bleed Discussed plan of care with patient and nurse Urology consult Cardiology consult Ortho consult Counseled patient on lifestyle modifications, diet, and exercise Counseled patient on continuous cessation of smoking Plan discussed with: Patient My Orders Orders - AILEENPRASHANTH BLENDER/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 APPLICATOR Procedure Category Date Status Time Urinalysis LAB 08/06/24 Transmitted 12:[address] 08/06/24 Transmitted Contrast 12:19 Ls Spine Wo Contrast CT 08/06/24 Transmitted 12:19 Admit ADMIT 08/06/24 Transmitted 12:19 Allergies JANINA 08/06/24 Transmitted 12:19 Code Status CODE 08/06/24 Transmitted 12:19 0.9% Ns 1000 Ml PHA 08/06/24 Transmitted 12:30 Hydrocodone-Acet PHA 08/06/24 Transmitted 5/325mg Tab ([place] 12:30 Ondansetron Hcl PHA 08/06/24 Transmitted (Zofran) 12:30 Complete Blood Count LAB 08/07/24 Verified 04:00 Comprehensive LAB 08/07/24 Verified Metabolic Panel 04:00 Cardiac DIET 08/06/24 Transmitted Diet-2gna,Lofat,Lochol Lunch Acetaminophen Tablet PHA 08/06/24 Transmitted (Tylenol Tablet) 12:30 Morphine Sulfate PHA 08/06/24 Transmitted Injection 12:30 Nitroglycerin PHA 08/06/24 Transmitted Sublingual (Ntrostat 12:30 Morphine Sulfate PHA 08/06/24 Transmitted Injection 12:30 Stat Ekg For Chest JANINA 08/06/24 Transmitted Pain 12:19 Notify Of Changes JANINA 08/06/24 Transmitted From Base 12:19 Pantograph Watcher For [facility] 08/06/24 Transmitted 24 Hours 12:19 Emergency Dysrhythmia JANINA 08/06/24 Transmitted Protocol 12:19 Rhythm Strips Once JANINA 08/06/24 Transmitted Every Shift 12:19 Oxygen By Nasal RT 08/06/24 Transmitted Cannula 12:19 Enoxaparin Sodium PHA 08/07/24 Transmitted (Lovenox) 10:00 Glucose Blood PHA 08/06/24 Transmitted (Accu-Chek Comfort 17:00 Mild Sliding Scale PHA 08/06/24 Transmitted 17:00 Dextrose 50% Syringe PHA 08/06/24 Transmitted 12:30 Hemoglobin A1c LAB 08/06/24 Transmitted 12:19 Amlodipine Tablet PHA 08/07/24 Verified (Norvasc Tablet) 10:00 (Nf) Aspirin (Aspirin PHA 08/07/24 Verified Low Dose) 10:00 (Nf) Atorvastatin PHA 08/07/24 Verified Calcium 10:00 (Nf) Lisinopril PHA 08/07/24 Verified 10:00 Date of Service: Aug 06, 2024 Billing Provider: PRASHANTH GALLAGHER Common Visit Codes: [id number] INP/OBS CARE (HIGH) PRASHANTH GALLAGHER Aug 06, 2024 12:27
[2024-08-06] MEDS ORDERED: DEXTROSE (50%) 50ML SYRG IV PRN (12:30)
[2024-08-06] MEDS ORDERED: NITROGLYCERIN 0.4 MG SL TAB SL PRN (12:30)
[2024-08-06] MEDS ORDERED: ONDANSETRON HCL 4 MG/2 ML VIAL IV PRN (12:30)
[2024-08-06] MEDS: SODIUM CHLORIDE 0.9% 1,000 ML IV SCH (13:00)
[2024-08-06] MEDS ORDERED: MORPHINE SULFATE 4 MG/ML SYR/VIAL IV PRN ×2 (13:00)
--- NOTE | 2024-08-06 13:08 | DVH ---
EXAM: CT CERVICAL WITHOUT CONTRAST INDICATION: neck and back pain EXAM DATE: 08/06/2024 12:31 PM COMPARISON: None TECHNIQUE: Multiple axial CT images of the cervical spine were obtained using bone algorithm. Axial a nd coronal reformatting was done. Bone and soft tissue windows were reviewed. Radiation Dose Information: CT Dose: CTDI volume is 23 mGy. Dose-length product is 505 mGy*cm FINDINGS: The cervical alignment is intact. No acute cervical spine fracture is identified. The vertebral body heights are intact. No suspicious osseous lesions are identified. Severe degenerative changes throughout the cervical spine Prominent disc osteophyte complex at C4-C5 causing severe bilateral neural foraminal narrowing. There is no prevertebral soft tissue swelling. IMPRESSION: 1. No evidence of acute cervical spine fracture or traumatic malalignment. 2. Severe degenerative changes throughout the cervical spine 3. Prominent disc osteophyte complex at C4-C5 causing severe bilateral neural foraminal narrowing. Co nsider MRI cervical spine for further characterization. 4. All CT scans at this medical facility are performed using dose modulation techniques as appropriat e to a performed exam including the following: Automated exposure control was utilized; adjustment of the MA and/or KV according to patient size; and use of iterative reconstruction technique.
--- NOTE | 2024-08-06 13:17 | DVH ---
EXAM: CT LS SPINE WO CONTRAST HISTORY: pain COMPARISON: CT scan of the abdomen and pelvis dated 05/27/2024. TECHNIQUE: Noncontrast axial CT images of the lumbar spine were performed. Sagittal and coronal refor matted images were obtained. This CT exam was performed using one or more of the following dose reduc tion techniques: Automated exposure control, adjustment of the mA and/or kv according to patient size , or the use of iterative reconstruction techniques. Radiation Dose: CT Dose: CTDI volume is 38.5 mGy. Dose-length product is 1219.78 mGy*cm FINDINGS: No fractures are identified about the lumbar spine. There is severe degenerative disc disease and fac et arthropathy with moderate spinal canal stenosis at L3-L4 and L4-L5, mild spinal canal stenosis at L1-L2 and L2-L3. There is multilevel significant neural foraminal stenosis including L1-L2 bilaterall y, L2-L3 on the left, L3-L4 bilaterally, L4-L5 bilaterally, L5-S1 bilaterally. There is bilateral hyd ronephrosis and hydroureter, with diffuse urinary bladder wall thickening, not fully imaged here. The re are colonic diverticula, not fully imaged here. IMPRESSION: 1. No fracture of the lumbar spine. 2. Severe degenerative disc disease and facet arthropathy with multilevel significant neural foramina l stenosis and multilevel moderate spinal canal stenosis as detailed above. Consider follow-up noncon trast MRI of the lumbar spine for better characterization, especially if the patient complains of low er extremity radicular symptoms. 3. Bilateral hydronephrosis and hydroureter is similar to that seen on previous CT scan dated 025. There is urinary bladder wall thickening which may be due to urinary bladder outlet obstruction and/or cystitis. Recommend urology consultation if not already obtained.
[2024-08-06 15:43] LABS: Urine Bacteria None Seen /hpf (None Seen)
[2024-08-06 16:07] LABS: Urine Blood 2+ /uL (Negative); Urine Clarity Ex.Turbid (Clear); Urine Color Light-Brown (Yellow); Urine Hyaline Cast MOD /lpf (0 - 2); Urine Mucus FEW (None Seen); Urine Protein, UAD 1+ (Negative); Urine Specific Gravity 1.006 (1.001-1.035); Urine Squamous Epithelial Cell MOD /hpf (<5); Urine Urobilinogen Normal (Negative); Urine WBC 1787 /HPF (0-5); Urine WBC Clumps PRESENT /hpf (None Seen)
[2024-08-06 16:41] VITALS: BP 143/53; PULSE 46; RESP 18; O2SAT 97
[2024-08-06 16:50] VITALS: BP 143/50; PULSE 46; RESP 18; TEMP 98.1; O2SAT 99
[2024-08-06] MEDS: ACCU-CHEK COMFORT CURVE STRIP VI SCH (17:00)
[2024-08-06] MEDS: InsuLIN REG 1unit/0.01ml Soln (100units/ml) SC SCH (17:00)
[2024-08-06] MEDS: cefTRIAXone 1GM/50ML D5W 50 ML IV SCH (18:39)
--- NOTE | 2024-08-06 19:09 | ECG ---
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
[2024-08-06 20:00] VITALS: PULSE 64; RESP 18
--- NOTE | 2024-08-06 20:32 | ECG ---
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
[2024-08-06 21:00] VITALS: BP 169/89; PULSE 64; RESP 18; TEMP 98.2; O2SAT 98
[2024-08-06] MEDS: ATORVASTATIN 20 MG TAB PO SCH (22:00)
[2024-08-06] MEDS: HYDROcodone-ACET 5/325MG TAB PO PRN (22:28)
[2024-08-07] VITALS (9 sets, daily range): BP systolic 117–167; BP diastolic 52–74; PULSE 51–65; RESP 18–20; TEMP 97.6–98.3; O2SAT 96–100
[2024-08-07 07:23] LABS: Basophils # (auto) 0.1 10 ^3/uL (0-0.2); Basophils % (auto) 1.1 % (0.0-2.0); Eosinophils # (auto) 0.2 10 ^3/uL (0-0.8); Eosinophils % (auto) 2.7 % (0.0-7.0); Hematocrit 33.2 % (36.0-46.0); Hemoglobin 11.5 g/dL (12.2-16.2); Lymphocytes # (auto) 2.2 10 ^3/uL (0.4-5.4); Lymphocytes % (auto) 34.6 % (10.0-50.0); Mean Corpuscular Hgb Conc. 34.5 g/dL (32.0-36.0); Mean Corpuscular Volume 87.1 fL (80.0-100.0); Monocytes # (auto) 0.5 10 ^3/uL (0-1.3); Monocytes % (auto) 8.7 % (0.0-12.0); Neutrophils # (auto) 3.3 10 ^3/uL (1.6-8.6); Neutrophils % (auto) 52.9 % (37.0-80.0); Platelet Count (auto) 209 10^3/uL (140-450); Red Blood Cells 3.82 10^6/uL (4.0-5.20); Red Cell Distribution Width 13.9 % (11.8-14.3); White Blood Cell 6.2 10^3/uL (4.4-10.8)
[2024-08-07 07:32] LABS: Alanine Aminotransferase 10 U/L (7-40); Alkaline Phosphatase 93 U/L (46-116); Anion Gap 10 (5-15); BUN/Creatinine Ratio 25.3 (10.0-20.0); Calcium 8.7 mg/dL (8.7-10.4); Carbon Dioxide 24 mmol/L (20-31); Chloride 105 mmol/L (98-107); Glucose 75 mg/dL (74-106); Potassium 3.5 mmol/L (3.5-5.1); Sodium 139 mmol/L (136-145); Total Protein 6.9 g/dL (5.7-8.2)
[2024-08-07 07:33] LABS: Albumin 3.8 g/dL (3.2-4.8); Aspartate Aminotransferase 17 U/L (<34); Bilirubin, Total 0.4 mg/dL (0.2-1.0)
[2024-08-07 07:36] LABS: Blood Urea Nitrogen 39 mg/dL (9-23)
--- NOTE | 2024-08-07 08:56 | DVH ---
CLINICAL INFORMATION: Severe degenerative disc disease. TECHNIQUE: Multisequence multiplanar MRI images of the cervical spine were obtained without contrast . COMPARISON: CT CERVICAL WITHOUT CONTRAST on DOS: 08/06/24 FINDINGS: Bones: Straightening of the normal cervical lordosis. Minimal anterolisthesis of C7 on T1. Vertebral body heights are maintained. Posterior elements are intact. No acute fracture. No focal suspicious ma rrow signal abnormality. Spinal cord: Spinal cord is normal in signal intensity. There is mild indentation of the spinal cord at the C4-C5 level due to moderate to severe spinal canal stenosis in this location. Paraspinal soft tissues: Paraspinal and prevertebral soft tissues are unremarkable. Other: No other significant findings. Cervical disc levels: C2-C3: Disc desiccation. Minimal disc bulge and infolding of the ligamentum flavum superimposed on co ngenital spinal canal narrowing causing moderate spinal canal stenosis. Facet and uncinate hypertroph y with severe right and moderate left neural foraminal stenoses. C3-C4: Disc desiccation with diffuse disc bulge superimposed on congenital spinal canal narrowing cau sing moderate spinal canal stenosis, abutting the ventral aspect of the spinal cord and partially eff acing the lateral recesses. Facet and uncinate hypertrophy with severe bilateral neural foraminal delbert noses. C4-C5: Disc desiccation with [id number] disc space narrowing and diffuse disc bulge causing mod erate to severe spinal canal stenosis, abutting and mildly indenting the ventral aspect of the spinal cord. There is also infolding of the ligamentum flavum congenital spinal canal narrowing contributin g to the spinal canal stenosis. There is effacement of the lateral recesses. Facet and uncinate hyper trophy with severe bilateral neural foraminal stenoses. C5-C6: Severe disc space narrowing with partial osseous fusion across the disc space. There is modera te congenital spinal canal narrowing with partial effacement of the lateral recesses. Facet and uncin ate hypertrophy with severe bilateral neural foraminal stenoses. C6-C7: Severe disc space narrowing with moderate congenital spinal canal stenosis and partial effacem ent of the lateral recesses. Facet and uncinate hypertrophy with severe right and moderate left neura l foraminal stenoses. Disc desiccation. C7-T1: Diffuse disc bulge and congenital spinal canal narrowing contributes to moderate spinal canal stenoses. Partial effacement of the lateral recesses. Facet and uncinate hypertrophy with severe ri ght and moderate left neural foraminal stenoses. Visualized portions of the thoracic spine demonstrate mild disc bulges and congenital spinal canal na rrowing contributing to likely moderate spinal canal stenoses at T1-T2, T2-T3, and T3-T4 IMPRESSION: 1. Degenerative disc disease and facet/uncinate disease in the cervical spine with associated spinal canal, subarticular, and neural foraminal stenoses as detailed above. 2. Congenital spinal canal narrowing contributes to the spinal canal stenoses. 3. Straightening of the normal cervical lordosis with minimal anterolisthesis of C7 on T1. 4. Additional findings as detailed above.
[2024-08-07] MEDS: ASPirin 81 mg TAB PO SCH (09:11)
[2024-08-07] MEDS: amLODIPine BESYLATE 5 MG TAB PO SCH (09:12)
--- NOTE | 2024-08-07 09:12 | DVH ---
CLINICAL INFORMATION: Severe degenerative disc disease. TECHNIQUE: Multisequence multiplanar MRI images of the lumbar spine were obtained without contrast. COMPARISON: CT dated 08/06/2024. INTERPRETATION: Minimal retrolisthesis of L1 on L2. Minimal anterolisthesis of L4 on L5 and L5 on S 1. Prominent Schmorl's node of the superior endplate of L4. Vertebral body heights are otherwise main tained. Posterior elements are intact. There are Modic type 1 endplate changes at L4-L5. Visualiz ed spinal cord and cauda equina are normal in signal intensity. Crowding of the cauda equina nerve r oots of the L3-L4 and L4-L5 levels due to severe spinal canal stenoses at these levels. The conus me dullaris is appropriate in signal at the L1 level. Moderate bilateral hydronephrosis and hydroureter , also seen on prior CT exams. Partially visualized bladder wall thickening and trabeculation. L1-L2: Disc desiccation with moderate to severe disc space narrowing and diffuse disc bulge causing moderate spinal canal stenosis and effacement of the lateral recesses. Facet hypertrophy and encroach ment of the neural foramina by the disc bulge contributes to severe bilateral neural foraminal stenos es. L2-L3: Disc desiccation with moderate to severe disc space narrowing and diffuse disc bulge causing moderate spinal canal stenosis and effacement of the lateral recesses. Severe left and moderate right neural foraminal stenoses secondary to facet hypertrophy and dorsal spurring. L3-L4: Disc desiccation with moderate disc space narrowing. Diffuse disc bulge and infolding of the ligamentum flavum contributes to severe spinal canal stenosis with severe crowding of the cauda equi na and effacement of the lateral recesses. Facet hypertrophy and encroachment of the neural foramina by the disc bulge contributes to severe bilateral neural foraminal stenoses. L4-L5: Disc desiccation with moderate disc space narrowing. Diffuse disc bulge and infolding of the ligamentum flavum contributes to severe spinal canal stenosis effacement of the lateral recesses. Fa cet hypertrophy with severe right and moderate left neural foraminal stenoses. L5-S1: Disc desiccation with diffuse disc bulge mildly indenting the ventral aspect of the thecal sa c. No significant spinal canal stenosis. Partial effacement of the lateral recesses by the disc bulg e. Facet hypertrophy with severe bilateral neural foraminal stenoses. IMPRESSION: 1. Degenerative disc disease and facet disease in the lumbar spine with associated spinal canal, suba rticular, and neural foraminal stenoses as detailed above, with the spinal canal stenoses greatest at the L3-L4 and L4-L5 levels. 2. Minimal retrolisthesis of L1 on L2 and minimal anterolisthesis of L4 on L5 and L5 on S1. 3. Moderate hydronephrosis and hydroureter again noted. Partially visualized bladder wall thickening and trabeculation noted. These findings were also seen on recent CT lumbar spine exam and prior CT o f the abdomen and pelvis exam dated 05/27/2024, and previous CT of the abdomen and pelvis dated 03/17. 4. Additional findings as detailed above.
[2024-08-07] MEDS: LISINOPRIL 20 MG TAB PO SCH (09:13)
[2024-08-07] MEDS: METOPROLOL SUCCINATE XL 50 MG TAB PO SCH (09:14)
[2024-08-07] MEDS: ENOXAPARIN SOD 40 MG/0.4 ML SYRINGE SC SCH (09:17)
--- NOTE | 2024-08-07 13:05 | DVHCONRES ---
Date Seen: Aug 07, 2024 Resident Creating Document: CAMILO OBANDO RESIDENT Reason for Consultation Sinus bradycardia History of Present Illness Patient is a 73-year-old female with past medical history of CVA, type 2 diabetes, hypertension, CAD s/p 1 [place] [facility] [place], comes in due to left-sided flank pain and left hand pain. According to the patient, she has been having left-sided flank pain for the past 1 month which has been progressively worsening and that is what prompted this visit to the hospital. Patient denies any active ongoing chest pain but does note bilateral shoulder pain that has been ongoing for the past 1 month, ever since a heavy object fell on her. Patient is AAO x3, however, somewhat of a poor historian. On review of systems patient is complaining of shortness of breath on exertion and urinary frequency. Patient is also on home oxygen 1 L. according to patient's daughter, patient had an event monitor placed for [address] Somers approximately 6 months ago, she is unsure of the results. EKG showed sinus bradycardia, on review of telemetry strips patient was noted to have episodes of atrial fibrillation highest heart rate 140 and a lowest heart rate 39. Serial troponins were 22, 20, 22 Past Medical History CVA, type 2 diabetes, hypertension, CAD s/p 1 [place] [facility] [place] Family History: FH: hepatic cirrhosis G8 FATHER, Social History Smoking: Quit 1 year ago, prior to that was smoking 1 pack per day for 60-65 years Alcohol: Denies Drugs: Denies Allergies: Coded Allergies: Penicillins (Verified Allergy, Unknown, 03/16/24) Home Meds Active Scripts Linezolid (Zyvox) 600 Mg Tab, 600 MG PO BID for 14 Days, #28 TAB Prov:CLARE RAMOS MD 05/31/24 Levofloxacin Hemihydrate (LEVAQUIN 500 MG) 500 Mg Tab, 1 TAB PO DAILY, #7 TAB Prov:JOHN BUTLER MD 03/19/24 Reported Medications Insulin Glargine (Basaglar Kwikpen) 100 Unit/Ml Inj, 27 UNITS SC HS 03/16/24 Metoprolol Succinate (Metoprolol Succinate Er) 25 Mg Tab, 1 TAB PO DAILY 03/16/24 Amlodipine Besylate (Amlodipine Besylate) 5 Mg Tab, 1 TAB PO DAILY 03/16/24 Aspirin (Aspirin Low Dose) 81 Mg Chw, 1 TAB PO DAILY 03/16/24 Atorvastatin Calcium (ATORVASTATIN CALCIUM) 80 Mg Tab, 40 MG PO DAILY 03/16/24 Lisinopril (Lisinopril) 40 Mg Tab, 1 TAB PO DAILY 03/16/24 Current Medications Current Medications Medications (Trade) Dose Ordered Sig/Solis Route PRN Reason Start Time Stop Time Status Last Admin Enoxaparin Sodium (Lovenox) 40 mg DAILY SC 08/07/24 10:00 08/07/24 09:17 Diagnostic Test (Pha) (Accu-Chek Comfort Curve T) 1 strip ACHS 08/06/24 17:00 08/07/24 11:19 Insulin Human Regular (InsuLIN R) ACHS SC 08/06/24 17:00 08/07/24 11:18 Amlodipine Besylate (Norvasc Tablet) 5 mg DAILY PO 08/07/24 10:00 08/07/24 09:12 Aspirin 81 mg DAILY PO 08/07/24 10:00 08/07/24 09:11 Atorvastatin Calcium (Lipitor) 40 mg HS PO 08/06/24 22:00 Lisinopril (Zestril Tablet) 40 mg DAILY PO 08/07/24 10:00 08/07/24 09:13 Metoprolol Succinate (Toprol Xl) 25 mg DAILY PO 08/07/24 10:00 08/07/24 09:14 Ceftriaxone Sodium 50 ml @ 100 mls/hr DAILY@09 IV 08/06/24 18:00 08/07/24 09:10 Review of Systems Patient seen and examined at bedside. Patient is alert and oriented to time, place person and responding to all questions. Eyes: No Pain, No Vision change, No Conjunctivae inflammation, No Eyelid inflammation, No Other, No Redness ENT: No Ear pain, No Ear discharge, No Nose pain, No Nose discharge, No Nose congestion, No Mouth pain, No Mouth swelling, No Throat pain, No Throat swelling, No Other Cardiovascular: No Chest Pain, No Palpitations, No Orthopnea, No Paroxysmal No Dyspnea, No Edema, No Lt Headedness, No Other Respiratory: No Cough, No Dry, No Shortness of breath, SOB with exertion, No Wheezing, No Hemoptysis, No Pleuritic Pain, No Sputum, No Other Gastrointestinal: No Nausea, No Vomiting, No Abdominal Pain, No Diarrhea, No Constipation, No Melena, No Hematochezia, No Other Genitourinary: No Dysuria, Frequency, No Incontinence, No Hematuria, No Retention, No Other Musculoskeletal: No other, No neck pain, No shoulder pain, No arm pain, No back pain, No hand pain, No leg pain, No foot pain Skin: No Rash, No Lesions, No Jaundice, No Bruising, No Other Vital Signs Vital Signs Date Time Temp Pulse Resp B/P (MAP) Pulse Ox O2 Delivery O2 Flow Rate FiO2 08/07/24 10:07 61 08/07/24 09:14 167/74 08/07/24 09:00 97.6 20 98 97.6 08/07/24 08:00 Room Air* 0 21 Physical Exam General Appearance: Cooperative. Well developed. Well nourished. NAD Head Exam: Normal inspection Neck Exam: Normal inspection. Non-tender. Normal alignment Pulmonary/Respiratory: Chest non-tender. Clear bilateral breath sounds, no crackles, no wheezing. Cardiovascular/Chest: Regular rate and rhythm. No murmurs. No JVD. Peripheral Pulses: 2+ Radial (R). 2+ Radial (L). 2+ Pedal (R). 2+ Pedal (L) Abdominal Exam: Normal bowel sounds. Soft. normal abdomen, no visible veins, Nontender. No hepatospenomegaly. No masses Ankle Exam: Negative ankle edema Lower extremities: Negative lower extremity edema Neuro/Mental Status: A&O x4. Coherent. Thoughts/Psych: Normal thought pattern. Appropriate mood and affect. Good judgement and insight Skin Exam: Normal inspection. Normal color. Warm. Dry Labs/Diagnostic Data Labs Test 08/07/24 12:17 08/07/24 05:58 08/06/24 22:26 08/06/24 15:13 Range/Units White Blood Count 6.2 4.4-10.8 10^3/uL Red Blood Count 3.82 L 4.0-5.20 10^6/uL Hemoglobin 11.5 L 12.2-16.2 g/dL Hematocrit 33.2 L 36.0-46.0 % Mean Corpuscular Volume 87.1 80.0-100.0 fL Mean Corpuscular Hemoglobin 30.0 28.0-32.0 pg Mean Corpuscular Hemoglobin Concent 34.5 32.0-36.0 g/dL Red Cell Distribution Width 13.9 11.8-14.3 % Platelet Count 209 140-450 10^3/uL Mean Platelet Volume 9.8 6.9-10.8 fL Neutrophils (%) (Auto) 52.9 37.0-80.0 % Lymphocytes (%) (Auto) 34.6 10.0-50.0 % Monocytes (%) (Auto) 8.7 0.0-12.0 % Eosinophils (%) (Auto) 2.7 0.0-7.0 % Basophils (%) (Auto) 1.1 0.0-2.0 % Neutrophils # (Auto) 3.3 1.6-8.6 10 ^3/uL Lymphocytes # (Auto) 2.2 0.4-5.4 10 ^3/uL Monocytes # (Auto) 0.5 0-1.3 10 ^3/uL Eosinophils # (Auto) 0.2 0-0.8 10 ^3/uL Basophils # (Auto) 0.1 0-0.2 10 ^3/uL Nucleated Red Blood Cells 0.0 % Sodium Level 139 136-145 mmol/L Potassium Level 3.5 3.5-5.1 mmol/L Chloride Level 105 98-107 mmol/L Carbon Dioxide Level 24 20-31 mmol/L Anion Gap 10 5-15 Blood Urea Nitrogen 39 H 9-23 mg/dL Creatinine 1.54 H 0.550-1.02 mg/dL Glomerular Filtration Rate Calc 35 >90 mL/min BUN/Creatinine Ratio 25.3 H 10.0-20.0 Serum Glucose 75 74-106 mg/dL Calcium Level 8.7 8.7-10.4 mg/dL Total Bilirubin 0.4 0.2-1.0 mg/dL Aspartate Amino Transferase (AST) 17 <34 U/L Alanine Aminotransferase (ALT) 10 7-40 U/L Alkaline Phosphatase 93 46-116 U/L B-Type Natriuretic Peptide 106.10 0-100 pg/mL Total Protein 6.9 5.7-8.2 g/dL Albumin 3.8 3.2-4.8 g/dL Thyroid Stimulating Hormone (TSH) 1.26 0.55-4.78 uIU/mL POC Glucose 146 H 70-106 mg/dl Urine Color Light-brown Yellow Urine Clarity Ex.turbid Clear Urine pH 6.0 5.0-9.0 Urine Specific [place] 1.006 1.001-1.035 Urine Protein 1+ H Negative Urine Ketones Negative Negative Urine Blood 2+ H Negative /uL Urine Nitrite Negative Negative Urine Bilirubin Negative Negative Urine Urobilinogen Normal Negative mg/dL Urine Leukocyte Esterase 3+ Negative /uL Urine RBC 19 0 - 4 /hpf Urine WBC Clumps Present None Seen /hpf Urine Microscopic WBC 1787 H 0-5 /HPF Urine Squamous Epithelial Cells Mod <5 /hpf Urine Bacteria None seen None Seen /hpf Urine Hyaline Casts Mod 0 - 2 /lpf Urine Mucus Few None Seen Urine Glucose Normal Normal mg/dL Test 08/06/24 10:17 08/06/24 07:38 Range/Units Troponin I High Sensitivity 22 </=34 ng/L Hemoglobin A1c 5.9 H <5.7 % A1C Assessment Sick sinus syndrome Paroxysmal atrial fibrillation; chads Vasc 8, has bled 4 Symptomatic bradycardia CAD s/p 1 [place] [facility] [place] Sepsis likely secondary to UTI Type 2 diabetes History of stroke Bladder mass? JAKE on possible CKD Plan: Patient will benefit from permanent pacemaker implantation Scheduled for pacemaker implantation on 08/10/2024 Holding beta blockers, continue amlodipine for blood pressure management Hold anticoagulation for procedure Rest of the management as per hospitalist Thank you so much for the opportunity to consult on your patient. Cardiology team will follow the patient. In case of any questions or concerns please feel free to reach out. Plan discussed with Dr. Higginbotham Plan discussed with: Patient, Daughter, Other (RN) Visit Coding Cardiology RES Date of Service: Aug 07, 2024 Billing Provider: ANDREA HIGGINBOTHAM Sr., MD Cardiology Common Codes: [id number] INP/OBS CARE (High) CAMILO OBANDO RESIDENT Aug 07, 2024 13:04
[2024-08-07 13:06] LABS: Prothrombin Time 10.6 sec (9.3-11.8)
--- NOTE | 2024-08-07 13:25 | DVHPN2 ---
Reviewed: Care Plan, H&P, Labs, Medications, Previous Orders, Radiology Changes from previous H/P or p: No Changes Musculoskeletal: other (Left jaw pain), neck pain, shoulder pain, arm pain Objective Vitals Vital Signs Date Time Temp Pulse Resp B/P (MAP) Pulse Ox O2 Delivery O2 Flow Rate FiO2 08/07/24 10:07 61 08/07/24 09:14 167/74 08/07/24 09:00 97.6 20 98 97.6 08/07/24 08:00 Room Air* 0 21 Intake/Output Intake and Output 08/07/24 07:00 Intake Total 650 ml Output Total 550 ml Balance 100 ml Intake Oral 480 ml IV Total 170 ml Output Urine Total 550 ml # Voids 5 Medications Current Medications Medications Dose Ordered Sig/Solis Route Start Time Stop Time Status Last Admin Dose Admin Sodium Chloride 1,000 ml @ 60 mls/hr [id number] IV 08/06/24 12:30 08/06/24 13:00 60 MLS/HR Acetaminophen/ Hydrocodone Bitart 1 tab Q4HP PRN PO 08/06/24 12:30 08/06/24 22:28 1 TAB Ondansetron HCl 4 mg Q4HP PRN IV 08/06/24 12:30 Acetaminophen 650 mg Q6HP PRN PO 08/06/24 12:30 Morphine Sulfate 2 mg Q4HPRN PRN IV 08/06/24 13:00 Nitroglycerin 0.4 mg Q5MINP PRN SL 08/06/24 12:30 Morphine Sulfate 2 mg Q30M PRN IV 08/06/24 13:00 Enoxaparin Sodium 40 mg DAILY SC 08/07/24 10:00 08/07/24 09:17 40 MG Diagnostic Test (Pha) 1 strip ACHS 08/06/24 17:00 08/07/24 11:19 1 STRIP Insulin Human Regular ACHS SC 08/06/24 17:00 08/07/24 11:18 2 UNITS Dextrose 50 ml UD PRN IV 08/06/24 12:30 Amlodipine Besylate 5 mg DAILY PO 08/07/24 10:00 08/07/24 09:12 5 MG Aspirin 81 mg DAILY PO 08/07/24 10:00 08/07/24 09:11 81 MG Atorvastatin Calcium 40 mg HS PO 08/06/24 22:00 Lisinopril 40 mg DAILY PO 08/07/24 10:00 08/07/24 09:13 40 MG Metoprolol Succinate 25 mg DAILY PO 08/07/24 10:00 08/07/24 09:14 25 MG Ceftriaxone Sodium 50 ml @ 100 mls/hr DAILY@09 IV 08/06/24 18:00 08/07/24 09:10 100 MLS/HR Laboratory Results Laboratory Tests 08/07/24 05:58 Chemistry Test 08/07/24 05:58 Albumin 3.8 g/dL (3.2-4.8) Calcium Level 8.7 mg/dL (8.7-10.4) Total Protein 6.9 g/dL (5.7-8.2) Coagulation Test 08/07/24 12:17 Prothrombin Time Pending Prothrombin Time INR Pending Activated Partial Thromboplast Time Pending Cardiac Markers Test 08/07/24 05:58 B-Type Natriuretic Peptide 106.10 pg/mL (0-100) LFT Test 08/07/24 05:58 Alanine Aminotransferase (ALT) 10 U/L (7-40) Alkaline Phosphatase 93 U/L (46-116) Aspartate Amino Transferase (AST) 17 U/L (<34) Total Bilirubin 0.4 mg/dL (0.2-1.0) HgA1c, TSH Test 08/07/24 05:58 Thyroid Stimulating Hormone (TSH) 1.26 uIU/mL (0.55-4.78) Urinalysis Test 08/06/24 15:13 Urine Color Light-brown (Yellow) Urine Clarity Ex.turbid (Clear) Urine pH 6.0 (5.0-9.0) Urine Specific [place] 1.006 (1.001-1.035) Urine Protein 1+ (Negative) H Urine Ketones Negative (Negative) Urine Blood 2+ /uL (Negative) H Urine Nitrite Negative (Negative) Urine Bilirubin Negative (Negative) Urine Urobilinogen Normal mg/dL (Negative) Urine Leukocyte Esterase 3+ /uL (Negative) Urine RBC 19 /hpf (0 - 4) Urine WBC Clumps Present /hpf (None Seen) Urine Microscopic WBC 1787 /HPF (0-5) H Urine Squamous Epithelial Cells Mod /hpf (<5) Urine Bacteria None seen /hpf (None Seen) Urine Hyaline Casts Mod /lpf (0 - 2) Urine Mucus Few (None Seen) Urine Glucose Normal mg/dL (Normal) Labs and/or images reviewed: Labs reviewed by me, Image(s) reviewed by me Assessment/Plan Assessment/Plan Sepsis secondary to urinary tract infection: Blood cultures urine cultures Rocephin IDDM HTN CAD s/p JODIE Ex smoker HLD Hx of CVA Subcm lung nodule Bladder mass JAKE on CKD 3a deconditioning Intractable neck and back pain: Consult for Dr. Frederick Patient is hospice revoked Patient is full code Time spent 70 minutes Advanced care planning time 20 minutes Plan discussed with: Patient Date of Service: Aug 07, 2024 Billing Provider: JOHN BUTLER MD Common Visit Codes: [id number] CARE 30-74 MIN JOHN BUTLER MD Aug 07, 2024 13:25
[2024-08-07 13:38] LABS: INR 1.01 (0.9-1.15); Partial Thromboplastin Time 29.9 SEC (24.5-34.5); Prothrombin Time 10.7 sec (9.3-11.8)
--- NOTE | 2024-08-07 15:08 | DVHINCON2 ---
Consultation - Spinal Surgery Date Seen: Aug 07, 2024 Referring Physician Referring Physician Attending Doctor: John Butler MD Reason for Consultation Reason for Visit: Neck pain History of Present Illness History of Present Illness History of Present Illness Dasia Raymond is a 73-year-old female with past medical history of CAD, hypertension, diabetes, COPD, CKD, CVA with left-sided hemiparesis, dementia, arthritis, VT status post JODIE, bed-bound, UTI, bladder mass, and lung nodule who presents to the ED with neck pain, left jaw pain radiating to the left shoulder and left arm. Patient reports that her neck pain is 8/10 aching and constant. Patient reports that 3 months ago the neck pain started 3 months ago. Patient also reports that she has been bed-bound for 6 months. She states she fell 4 months ago and not sure where she landed but she does state that she has 3 bad discs. She also states that when she fell she went to [facility] and got imaging but no the results are rehab shortly afterwards. Patient denies any chest pain, shortness of breath, fever, chills, l ightheadedness, weakness, dizziness, abdominal pain, nausea, vomiting, diarrhea, recent sick contacts, recent travels, or recent ingestion of spoiled food Past Medical/Surgical History Past Medical/Surgical History Cardiovascular: CAD, HTN, VT Pulmonary: COPD Renal/: Chronic renal insuff, UTI Endocrine: Diabetes Past Medical History Dementia Arthritis Bed-bound for 6 months CVA with left-sided hemiparesis Bladder mass Lung nodule Past Surgical History: Other (Status post JODIE) Family and Social History Family and Social History Family History: DM, Other (Mom with heart disease and dad with diabetes) Smoke: Quit ALCOHOL: none Drugs: None Lives: with Family Domestic Violence: Neg Allergies and medications Allergies: Coded Allergies: Penicillins (Verified Allergy, Unknown, 03/16/24) Home Meds Active Scripts Linezolid (Zyvox) 600 Mg Tab, 600 MG PO BID for 14 Days, #28 TAB Prov:CLARE RAMOS MD 05/31/24 Levofloxacin Hemihydrate (LEVAQUIN 500 MG) 500 Mg Tab, 1 TAB PO DAILY, #7 TAB Prov:JOHN BUTLER MD 03/19/24 Reported Medications Insulin Glargine (Basaglar Kwikpen) 100 Unit/Ml Inj, 27 UNITS SC HS 03/16/24 Metoprolol Succinate (Metoprolol Succinate Er) 25 Mg Tab, 1 TAB PO DAILY 03/16/24 Amlodipine Besylate (Amlodipine Besylate) 5 Mg Tab, 1 TAB PO DAILY 03/16/24 Aspirin (Aspirin Low Dose) 81 Mg Chw, 1 TAB PO DAILY 03/16/24 Atorvastatin Calcium (ATORVASTATIN CALCIUM) 80 Mg Tab, 40 MG PO DAILY 03/16/24 Lisinopril (Lisinopril) 40 Mg Tab, 1 TAB PO DAILY 03/16/24 Review of systems Review of Systems: HEENT:Abnormal (lt jaw pain, neck pain), RESPIRATORY:Abnormal (In oxygen), GI:Normal (Complaint), :Normal (No complaints), MSK:Abnormal (Patient is unable to walk has been bed-bound for several years), NEURO:Abnormal (Patient demonstrates weakness 3/5 bilateral lower extremities 4/5 bilateral upper extremities) Examination Vital signs Imaging: CLINICAL INFORMATION: Severe degenerative disc disease. TECHNIQUE: Multisequence multiplanar MRI images of the cervical spine were obtained without contrast. COMPARISON: CT CERVICAL WITHOUT CONTRAST on DOS: 08/06/24 FINDINGS: Bones: Straightening of the normal cervical lordosis. Minimal anterolisthesis of C7 on T1. Vertebral body heights are maintained. Posterior elements are intact. No acute fracture. No focal suspicious marrow signal abnormality. Spinal cord: Spinal cord is normal in signal intensity. There is mild indentation of the spinal cord at the C4-C5 level due to moderate to severe sp inal canal stenosis in this location. Paraspinal soft tissues: Paraspinal and prevertebral soft tissues are unremarkable. Other: No other significant findings. Cervical disc levels: C2-C3: Disc desiccation. Minimal disc bulge and infolding of the ligamentum flavum superimposed on congenital spinal canal narrowing causing moderate spinal canal stenosis. Facet and uncinate hypertrophy with severe right and moderate left neural foraminal stenoses. C3-C4: Disc desiccation with diffuse disc bulge superimposed on congenital spinal canal narrowing causing moderate spinal canal stenosis, abutting the ventral aspect of the spinal cord and partially effacing the lateral recesses. Facet and uncinate hypertrophy with severe bilateral neural foraminal stenoses. C4-C5: Disc desiccation with eoli-en-nvydejvr disc space narrowing and diffuse disc bulge causing moderate to severe spinal canal stenosis, abutting and mildly indenting the ventral aspect of the spinal cord. There is also infolding of the ligamentum flavum congenital spinal canal narrowing contributing to the spinal canal stenosis. There is effacement of the lateral recesses. Facet and uncinate hypertrophy with severe bilateral neural foraminal stenoses. C5-C6: Severe disc space narrowing with partial osseous fusion across the disc space. There is moderate congenital spinal canal narrowing with partial effacement of the lateral recesses. Facet and uncinate hypertrophy with severe bilateral neural foraminal stenoses. C6-C7: Severe disc space narrowing with moderate congenital spinal canal stenosis and partial effacement of the lateral recesses. Facet and uncinate hypertrophy with severe right and moderate left neural foraminal stenoses. Disc desiccation. C7-T1: Diffuse disc bulge and congenital spinal canal narrowing contributes to moderate spinal canal stenoses. Partial effacement of the lateral recesses. Facet and uncinate hypertrophy with severe right and moderate left neural foraminal stenoses. Visualized portions of the thoracic spine demonstrate mild disc bulges and congenital spinal canal narrowing contributing to likely moderate spinal canal stenoses at T1-T2, T2-T3, and T3-T4 IMPRESSION: 1. Degenerative disc disease and facet/uncinate disease in the cervical spine with associated spinal canal, subarticular, and neural foraminal stenoses as detailed above. 2. Congenital spinal canal narrowing contributes to the spinal canal stenoses. 3. Straightening of the normal cervical lordosis with minimal anterolisthesis of C7 on T1. 4. Additional findings as detailed above. ICAL INFORMATION: Severe degenerative disc disease. TECHNIQUE: Multisequence multiplanar MRI images of the lumbar spine were ob tained without contrast. COMPARISON: CT dated 08/06/2024. INTERPRETATION: Minimal retrolisthesis of L1 on L2. Minimal anterolisthesis of L4 on L5 and L5 on S1. Prominent Schmorl's node of the superior endplate of L4. Vertebral body heights are otherwise maintained. Posterior elements are intact. There are Modic type 1 endplate changes at L4-L5. Visualized spinal cord and cauda equina are normal in signal intensity. Crowding of the cauda equina nerve roots of the L3-L4 and L4-L5 levels due to severe spinal canal stenoses at these levels. The conus medullaris is appropriate in signal at the L1 level. Moderate bilateral hydronephrosis and hydroureter, also seen on prior CT exams. Partially visualized bladder wall thickening and trabeculation. L1-L2: Disc desiccation with moderate to severe disc space narrowing and diffuse disc bulge causing moderate spinal canal stenosis and effacement of the lateral recesses. Facet hypertrophy and encroachment of the neural foramina by the disc bulge contributes to severe bilateral neural foraminal stenoses. L2-L3: Disc desiccation with moderate to severe disc space narrowing and diffuse disc bulge causing moderate spinal canal stenosis and effacement of the lateral recesses. Severe left and moderate right neural foraminal stenoses secondary to facet hypertrophy and dorsal spurring. L3-L4: Disc desiccation with moderate disc space narrowing. Diffuse disc bulge and infolding of the ligamentum flavum contributes to severe spinal canal stenosis with severe crowding of the cauda equina and effacement of the lateral recesses. Facet hypertrophy and encroachment of the neural foramina by the disc bulge contributes to severe bilateral neural foraminal stenoses. L4-L5: Disc desiccation with moderate disc space narrowing. Diffuse disc bulge and infolding of the ligamentum flavum contributes to severe spinal canal stenosis effacement of the lateral recesses. Facet hypertrophy with severe right and moderate left neural foraminal stenoses. L5-S1: Disc desiccation with diffuse disc bulge mildly indenting the ventral aspect of the thecal sac. No significant spinal canal stenosis. Partial effacement of the lateral recesses by the disc bulge. Facet hypertrophy with severe bilateral neural foraminal stenoses. IMPRESSION: 1. Degenerative disc disease and facet disease in the lumbar spine with associated spinal canal, subarticular, and neural foraminal stenoses as detailed above, with the spinal canal stenoses greatest at the L3-L4 and L4-L5 levels. 2. Minimal retrolisthesis of L1 on L2 and minimal anterolisthesis of L4 on L5 and L5 on S1. 3. Moderate hydronephrosis and hydroureter again noted. Partially visualized bladder wall thickening and trabeculation noted. These findings were also seen on recent CT lumbar spine exam and prior CT of the abdomen and pelvis exam dated 05/27/2024, and previous CT of the abdomen and pelvis dated 03/17/2024. 4. Additional findings as detailed above. Vital Signs Date Time Temp Pulse Resp B/P (MAP) Pulse Ox O2 Delivery O2 Flow Rate FiO2 08/07/24 13:00 98.3 51 18 117/52 (73) 100 98.3 08/07/24 08:00 Room Air* 0 21 Medications Current Medications Medications (Trade) Dose Ordered Sig/Solis Route PRN Reason Start Time Stop Time Status Last Admin Enoxaparin Sodium (Lovenox) 40 mg DAILY SC 08/07/24 10:00 08/07/24 09:17 Diagnostic Test (Pha) (Accu-Chek Comfort Curve T) 1 strip ACHS 08/06/24 17:00 08/07/24 11:19 Insulin Human Regular (InsuLIN R) ACHS SC 08/06/24 17:00 08/07/24 11:18 Amlodipine Besylate (Norvasc Tablet) 5 mg DAILY PO 08/07/24 10:00 08/07/24 09:12 Aspirin 81 mg DAILY PO 08/07/24 10:00 08/07/24 09:11 Atorvastatin Calcium (Lipitor) 40 mg HS PO 08/06/24 22:00 Lisinopril (Zestril Tablet) 40 mg DAILY PO 08/07/24 10:00 08/07/24 09:13 Metoprolol Succinate (Toprol Xl) 25 mg DAILY PO 08/07/24 10:00 08/07/24 09:14 Ceftriaxone Sodium 50 ml @ 100 mls/hr DAILY@09 IV 08/06/24 18:00 08/07/24 09:10 Laboratory Labs Test 08/07/24 12:17 08/07/24 05:58 08/06/24 22:26 08/06/24 15:13 Range/Units Prothrombin Time 10.7 9.3-11.8 sec Prothrombin Time INR 1.01 0.9-1.15 Activated Partial Thromboplast Time 29.9 24.5-34.5 SEC White Blood Count 6.2 4.4-10.8 10^3/uL Red Blood Count 3.82 L 4.0-5.20 10^6/uL Hemoglobin 11.5 L 12.2-16.2 g/dL Hematocrit 33.2 L 36.0-46.0 % Mean Corpuscular Volume 87.1 80.0-100.0 fL Mean Corpuscular Hemoglobin 30.0 28.0-32.0 pg Mean Corpuscular Hemoglobin Concent 34.5 32.0-36.0 g/dL Red Cell Distribution Width 13.9 11.8-14.3 % Platelet Count 209 140-450 10^3/uL Mean Platelet Volume 9.8 6.9-10.8 fL Neutrophils (%) (Auto) 52.9 37.0-80.0 % Lymphocytes (%) (Auto) 34.6 10.0-50.0 % Monocytes (%) (Auto) 8.7 0.0-12.0 % Eosinophils (%) (Auto) 2.7 0.0-7.0 % Basophils (%) (Auto) 1.1 0.0-2.0 % Neutrophils # (Auto) 3.3 1.6-8.6 10 ^3/uL Lymphocytes # (Auto) 2.2 0.4-5.4 10 ^3/uL Monocytes # (Auto) 0.5 0-1.3 10 ^3/uL Eosinophils # (Auto) 0.2 0-0.8 10 ^3/uL Basophils # (Auto) 0.1 0-0.2 10 ^3/uL Nucleated Red Blood Cells 0.0 % Sodium Level 139 136-145 mmol/L Potassium Level 3.5 3.5-5.1 mmol/L Chloride Level 105 98-107 mmol/L Carbon Dioxide Level 24 20-31 mmol/L Anion Gap 10 5-15 Blood Urea Nitrogen 39 H 9-23 mg/dL Creatinine 1.54 H 0.550-1.02 mg/dL Glomerular Filtration Rate Calc 35 >90 mL/min BUN/Creatinine Ratio 25.3 H 10.0-20.0 Serum Glucose 75 74-106 mg/dL Calcium Level 8.7 8.7-10.4 mg/dL Total Bilirubin 0.4 0.2-1.0 mg/dL Aspartate Amino Transferase (AST) 17 <34 U/L Alanine Aminotransferase (ALT) 10 7-40 U/L Alkaline Phosphatase 93 46-116 U/L B-Type Natriuretic Peptide 106.10 0-100 pg/mL Total Protein 6.9 5.7-8.2 g/dL Albumin 3.8 3.2-4.8 g/dL Thyroid Stimulating Hormone (TSH) 1.26 0.55-4.78 uIU/mL POC Glucose 146 H 70-106 mg/dl Urine Color Light-brown Yellow Urine Clarity Ex.turbid Clear Urine pH 6.0 5.0-9.0 Urine Specific [place] 1.006 1.001-1.035 Urine Protein 1+ H Negative Urine Ketones Negative Negative Urine Blood 2+ H Negative /uL Urine Nitrite Negative Negative Urine Bilirubin Negative Negative Urine Urobilinogen Normal Negative mg/dL Urine Leukocyte Esterase 3+ Negative /uL Urine RBC 19 0 - 4 /hpf Urine WBC Clumps Present None Seen /hpf Urine Microscopic WBC 1787 H 0-5 /HPF Urine Squamous Epithelial Cells Mod <5 /hpf Urine Bacteria None seen None Seen /hpf Urine Hyaline Casts Mod 0 - 2 /lpf Urine Mucus Few None Seen Urine Glucose Normal Normal mg/dL Test 08/06/24 10:17 08/06/24 07:38 Range/Units Troponin I High Sensitivity 22 </=34 ng/L Hemoglobin A1c 5.9 H <5.7 % A1C Examination: GENERAL:Normal, HEENT:Normal, NECK:Abnormal (Says she does have neck pain however it is not as bad as her back), LUNGS:Abnormal (Require supplemental O2), CVS:Normal (Complaints of chest pain at this time), ABDOMEN:Normal, MSK:Normal (Patient looks deconditioned, bilateral lower extremity weakness however patient is able to ambulate in room with minimal assistance), SKIN:Normal, NEURO:Normal (Sensation is intact all four extremities , patient has age-appropriate strength to upper extremities however she has weak bilateral lower extremities), :Normal Problem List/Assessment/Plan Problems: (1) Lumbar stenosis with neurogenic claudication (2) Cervical stenosis of spinal canal Assessment and Plan 1.Degenerative disc disease and facet/uncinate disease in the cervical spine with associated spinal canal, subarticular, and neural foraminal stenoses as detailed above. 2.Congenital spinal canal narrowing 3.Degenerative disc disease and facet disease in the lumbar spine with associated spinal canal, subarticular, and neural foraminal stenoses as detailed above, with the spinal canal stenoses greatest at the L3-L4 and L4-L5 levels. 4.Minimal retrolisthesis of L1 on L2 and minimal anterolisthesis of L4 on L5 and L5 on S1. 5.Patient states she is not interested in having any kind of spinal surgery at this time, she states that she would like to start conservatively with physical therapy 1st for her lumbar and her cervical spine. Patient states that her lumbar spine is more painful than her cervical spine. 6.Further care and management per primary team's discretion 7.PT evaluation, treatment recommendations and discharge planning recommendations, weight-bearing as tolerated 8.Ensure adequate control of muscle spasms with medication 9.Patient does not need emergent spine surgery and is cleared to discharge if she is safe to ambulate from a spine surgery perspective. Patient can follow up with her PCP and get a spine referral if she needs it. Patient will like to trial physical therapy 1st. Call with questions Jim Florentino [facility] Orthopaedic Spine Surgery nurse practitioner For Dr Jillian Frederick Patient was examined, chart reviewed, labs evaluated, and diagnostic studies and findings analyzed. Case was discussed with Dr. Rigo Frederick who formulated the plan of care. This medical document was created using an electronic medical record system with [employer] dictation system. Although this document has been carefully reviewed, there might still be some phonetic and typographical errors. These areas are purely typographical due to imperfections of the software programs, and do not reflect any compromise in the patient's medical care. Plan discussed with Plan discussed with: Patient, Other (Harvey PANG extension 05/26/2000) LEX FLORENTINO NP Aug 07, 2024 15:08
[2024-08-08] VITALS (8 sets, daily range): BP systolic 92–161; BP diastolic 45–101; PULSE 44–64; RESP 16–18; TEMP 97.7–98.1; O2SAT 93–98
--- NOTE | 2024-08-08 09:27 | DVHPN2 ---
Reviewed: Care Plan, H&P, Labs, Medications, Previous Orders, Radiology Changes from previous H/P or p: No Changes Musculoskeletal: other (Left jaw pain), neck pain, shoulder pain, arm pain Objective Vitals Vital Signs Date Time Temp Pulse Resp B/P (MAP) Pulse Ox O2 Delivery O2 Flow Rate FiO2 08/08/24 08:40 97.8 45 16 105/45 (65) 93 97.8 08/07/24 20:00 Room Air* 0 21 Intake/Output Intake and Output 08/08/24 07:00 Intake Total 1030 ml Balance 1030 ml Intake Oral 800 ml IV Total 230 ml # Voids 10 Medications Current Medications Medications Dose Ordered Sig/Solis Route Start Time Stop Time Status Last Admin Dose Admin Sodium Chloride 1,000 ml @ 60 mls/hr [id number] IV 08/06/24 12:30 08/07/24 16:57 60 MLS/HR Acetaminophen/ Hydrocodone Bitart 1 tab Q4HP PRN PO 08/06/24 12:30 08/08/24 06:25 1 TAB Ondansetron HCl 4 mg Q4HP PRN IV 08/06/24 12:30 Acetaminophen 650 mg Q6HP PRN PO 08/06/24 12:30 Morphine Sulfate 2 mg Q4HPRN PRN IV 08/06/24 13:00 Nitroglycerin 0.4 mg Q5MINP PRN SL 08/06/24 12:30 Morphine Sulfate 2 mg Q30M PRN IV 08/06/24 13:00 Diagnostic Test (Pha) 1 strip ACHS 08/06/24 17:00 08/08/24 06:05 1 STRIP Insulin Human Regular ACHS SC 08/06/24 17:00 08/07/24 11:18 2 UNITS Dextrose 50 ml UD PRN IV 08/06/24 12:30 Amlodipine Besylate 5 mg DAILY PO 08/07/24 10:00 08/07/24 09:12 5 MG Aspirin 81 mg DAILY PO 08/07/24 10:00 08/07/24 09:11 81 MG Atorvastatin Calcium 40 mg HS PO 08/06/24 22:00 Lisinopril 40 mg DAILY PO 08/07/24 10:00 08/07/24 09:13 40 MG Metoprolol Succinate 25 mg DAILY PO 08/07/24 10:00 Hold 08/07/24 09:14 25 MG Ceftriaxone Sodium 50 ml @ 100 mls/hr DAILY@09 IV 08/06/24 18:00 08/07/24 09:10 100 MLS/HR Laboratory Results Laboratory Tests 08/07/24 05:58 Coagulation Test 08/07/24 12:17 Prothrombin Time 10.7 sec (9.3-11.8) Prothrombin Time INR 1.01 (0.9-1.15) Activated Partial Thromboplast Time 29.9 SEC (24.5-34.5) Urinalysis Test 08/06/24 15:13 Urine Color Light-brown (Yellow) Urine Clarity Ex.turbid (Clear) Urine pH 6.0 (5.0-9.0) Urine Specific [place] 1.006 (1.001-1.035) Urine Protein 1+ (Negative) H Urine Ketones Negative (Negative) Urine Blood 2+ /uL (Negative) H Urine Nitrite Negative (Negative) Urine Bilirubin Negative (Negative) Urine Urobilinogen Normal mg/dL (Negative) Urine Leukocyte Esterase 3+ /uL (Negative) Urine RBC 19 /hpf (0 - 4) Urine WBC Clumps Present /hpf (None Seen) Urine Microscopic WBC 1787 /HPF (0-5) H Urine Squamous Epithelial Cells Mod /hpf (<5) Urine Bacteria None seen /hpf (None Seen) Urine Hyaline Casts Mod /lpf (0 - 2) Urine Mucus Few (None Seen) Urine Glucose Normal mg/dL (Normal) Labs and/or images reviewed: Labs reviewed by me, Image(s) reviewed by me Assessment/Plan Assessment/Plan Sepsis secondary to urinary tract infection: Blood cultures urine cultures Rocephin IDDM HTN CAD s/p JODIE History of smoking HLD Hx of CVA Subcm lung nodule Bladder mass JAKE on CKD 3a deconditioning Intractable neck and back pain secondary to cervical spinal stenosis and lumbar spinal stenosis: Consult for Dr. Frederick appreciated, advised conservative management and physical therapy and pain management Patient is hospice revoked Patient is full code Time spent 50 minutes Plan discussed with: Patient My Orders Orders - JOHN BUTLER MD Procedure Category Date Status Time Blood Culture ANISHA 08/07/24 In Process 13:20 Urine Bacterial ANISHA 08/07/24 In Process Culture 13:20 * Hand Rigger CONS 08/07/24 Transmitted Consult Straight Cath Patient ORDERS 08/07/24 Transmitted 13:43 Communication Order ORDERS 08/07/24 Transmitted 13:43 Date of Service: Aug 08, 2024 Billing Provider: JOHN BUTLER MD Common Visit Codes: [id number] INP/OBS CARE(HIGH) JOHN BUTLER MD Aug 08, 2024 09:27
--- NOTE | 2024-08-08 12:29 | DVH ---
CT CT AB PEL WO CON-NO ORAL OR IV INDICATION: Recurrent UTI EXAM DATE: 08/08/2024 11:50 AM COMPARISON: CT CT AB PEL WO CON-NO ORAL OR IV on DOS: 05/27/24, CT CT AB PEL WO CON-NO ORAL OR IV on DO S: 03/17/24 RADIATION DOSE: CTDIvol: 12.53 mGy, DLP: 661.8 mGy*cm PROCEDURE: Helical CT images were obtained of the abdomen and pelvis without IV contrast Sagittal and coronal reconstructions are provided. ORAL CONTRAST: None. ADDITIONAL IMAGES / REFORMATS: None All C T scans at this medical facility are performed using dose modulation techniques as appropriate to a p erformed exam including the following: Automated exposure control was utilized; adjustment of the MA and/or KV according to patient size; and use of iterative reconstruction technique. FINDINGS: LUNG BASE: 7mm right Basilar pulmonary nodule. LIVER: Normal. GALLBLADDER AND BILIARY TREE: No calcified gallstones. Normal caliber wall. No intra- or extrahepatic biliary ductal dilation. PANCREAS: Normal. SPLEEN: Normal. BOWEL: There is moderate colonic diverticulosis. Moderate fecal burden is seen. The appendix is not v isualized. ADRENALS: Normal. KIDNEYS AND URETER: There is similar moderate bilateral hydro ureteronephrosis. Mild left perinephric fat stranding could be seen with inflammation. BLADDER: There is similar asymmetric wall thickening of the bladder with adjacent fat stranding which could be seen with cystitis, chronic. REPRODUCTIVE ORGANS: Normal. LYMPH NODES:No lymphadenopathy. PERITONEUM: No ascites or free air. No other fluid collection. VESSELS: Scattered atherosclerotic calcifications are noted. RETROPERITONEUM: Normal. ABDOMINAL WALL: Normal. BONES: Scattered osseous degenerative changes are noted. IMPRESSION: There is similar asymmetric wall thickening of the bladder with adjacent fat stranding which could be seen with cystitis, chronic. There is similar moderate bilateral hydro ureteronephrosis. Mild left perinephric fat stranding could be seen with inflammation. moderate colonic diverticulosis. Moderate fecal burden is seen. 7mm right Basilar pulmonary nodule similar.
[2024-08-08] MEDS: ACETAMINOPHEN 325 MG TAB PO PRN (14:05)
--- NOTE | 2024-08-08 17:36 | DVHSR ---
APPROVED REPORT EXAM: LIMITED Two-dimensional and M-mode echocardiogram with Doppler and color Doppler. Blood Pressure: 167/74 mmHg INDICATION Eval for structural heart Dx RISK FACTORS Height: 64, Weight: 180 DIMENSIONS LVDd4.7 (3.8-5.7cm)LA (2D)3.8 (1.9-4.0cm)Aortic Root2.9 (2.0-3.7cm) LVDs3.0 (2.5-4.0cm)LA (MM) (1.9-4.0cm)Aortic Cusp Exc1.6 (1.5-2.0cm) EF (%) 65.0 (55-70%)Rt. Atrium4.3 (1.9-4.0cm)Asc. Aorta cm IVSd1.1 (0.7-1.1cm)RV (D) (1.8-2.4cm) PWd1.3 (0.7-1.1cm) Mitral Valve MitralMitral Stenosis E wave1.02m/sMV Mean GR.mmHg A wave0.89m/sMV Peak GR.mmHg E/A ratio1.12D MVAcm2 DECEL [id number] 1/2 [id number] IVRTmsDop MVA2.74cm2 Pulmonic Valve V21.02m/s Tricuspid Valve TR Velocity1.77m/s [id number] Other Information Technically limited study due to patient refused rest of test. Patient yelled at tech to get out of her room. Conclusion Sinus rhythm. Right ventricular enlargement. Valves are normal. EF of 60% with normal RV function. Dopplers unremarkable. No pericardial effusion masses or vegetations.
[2024-08-09] VITALS (7 sets, daily range): BP systolic 123–168; BP diastolic 43–86; PULSE 44–63; RESP 16–19; TEMP 97.2–98.4; O2SAT 96–99
[2024-08-09 06:22] LABS: Albumin 3.6 g/dL (3.2-4.8); Alkaline Phosphatase 80 U/L (46-116); Anion Gap 9 (5-15); Aspartate Aminotransferase 12 U/L (<34); BUN/Creatinine Ratio 20.5 (10.0-20.0); Blood Urea Nitrogen 36 mg/dL (9-23); Calcium 9.6 mg/dL (8.7-10.4); Carbon Dioxide 24 mmol/L (20-31); Chloride 109 mmol/L (98-107); Glucose 105 mg/dL (74-106); Potassium 4.3 mmol/L (3.5-5.1); Sodium 142 mmol/L (136-145); Total Protein 6.5 g/dL (5.7-8.2)
[2024-08-09 06:23] LABS: Alanine Aminotransferase < 9 U/L (7-40); Bilirubin, Total 0.2 mg/dL (0.2-1.0)
--- NOTE | 2024-08-09 09:54 | DVHPN2 ---
Reviewed: Care Plan, H&P, Labs, Medications, Previous Orders, Radiology Changes from previous H/P or p: No Changes Musculoskeletal: other (Left jaw pain), neck pain, shoulder pain, arm pain Objective Vitals Vital Signs Date Time Temp Pulse Resp B/P (MAP) Pulse Ox O2 Delivery O2 Flow Rate FiO2 08/09/24 08:55 170/93 08/09/24 08:45 98.4 54 18 96 98.4 08/09/24 08:00 Room Air* 0 21 Intake/Output Intake and Output 08/09/24 07:00 Intake Total 1500 ml Balance 1500 ml Intake Oral 1500 ml # Voids 7 Medications Current Medications Medications Dose Ordered Sig/Solis Route Start Time Stop Time Status Last Admin Dose Admin Sodium Chloride 1,000 ml @ 60 mls/hr [id number] IV 08/06/24 12:30 08/07/24 16:57 60 MLS/HR Acetaminophen/ Hydrocodone Bitart 1 tab Q4HP PRN PO 08/06/24 12:30 08/08/24 06:25 1 TAB Ondansetron HCl 4 mg Q4HP PRN IV 08/06/24 12:30 Acetaminophen 650 mg Q6HP PRN PO 08/06/24 12:30 08/08/24 20:39 650 MG Morphine Sulfate 2 mg Q4HPRN PRN IV 08/06/24 13:00 Nitroglycerin 0.4 mg Q5MINP PRN SL 08/06/24 12:30 Morphine Sulfate 2 mg Q30M PRN IV 08/06/24 13:00 Diagnostic Test (Pha) 1 strip ACHS 08/06/24 17:00 08/08/24 20:49 1 STRIP Insulin Human Regular ACHS SC 08/06/24 17:00 08/08/24 21:15 2 UNITS Dextrose 50 ml UD PRN IV 08/06/24 12:30 Amlodipine Besylate 5 mg DAILY PO 08/07/24 10:00 08/09/24 08:55 5 MG Aspirin 81 mg DAILY PO 08/07/24 10:00 08/09/24 08:54 81 MG Atorvastatin Calcium 40 mg HS PO 08/06/24 22:00 Lisinopril 40 mg DAILY PO 08/07/24 10:00 08/09/24 08:55 40 MG Metoprolol Succinate 25 mg DAILY PO 08/07/24 10:00 Hold 08/07/24 09:14 25 MG Ceftriaxone Sodium 50 ml @ 100 mls/hr DAILY@09 IV 08/06/24 18:00 08/07/24 09:10 100 MLS/HR Laboratory Results Laboratory Tests 08/07/24 05:58 08/09/24 05:34 Chemistry Test 08/09/24 05:34 Albumin 3.6 g/dL (3.2-4.8) Calcium Level 9.6 mg/dL (8.7-10.4) Total Protein 6.5 g/dL (5.7-8.2) LFT Test 08/09/24 05:34 Alanine Aminotransferase (ALT) < 9 U/L (7-40) Alkaline Phosphatase 80 U/L (46-116) Aspartate Amino Transferase (AST) 12 U/L (<34) Total Bilirubin 0.2 mg/dL (0.2-1.0) Urinalysis Test 08/06/24 15:13 Urine Color Light-brown (Yellow) Urine Clarity Ex.turbid (Clear) Urine pH 6.0 (5.0-9.0) Urine Specific [place] 1.006 (1.001-1.035) Urine Protein 1+ (Negative) H Urine Ketones Negative (Negative) Urine Blood 2+ /uL (Negative) H Urine Nitrite Negative (Negative) Urine Bilirubin Negative (Negative) Urine Urobilinogen Normal mg/dL (Negative) Urine Leukocyte Esterase 3+ /uL (Negative) Urine RBC 19 /hpf (0 - 4) Urine WBC Clumps Present /hpf (None Seen) Urine Microscopic WBC 1787 /HPF (0-5) H Urine Squamous Epithelial Cells Mod /hpf (<5) Urine Bacteria None seen /hpf (None Seen) Urine Hyaline Casts Mod /lpf (0 - 2) Urine Mucus Few (None Seen) Urine Glucose Normal mg/dL (Normal) Microbiology Microbiology Date/Time Source Procedure Growth Status 08/07/24 14:00 Blood Blood Culture - Preliminary NO GROWTH AFTER 24 HOURS OF INCUBATION. Resulted 08/06/24 15:13 Voided Urine Urine Culture - Preliminary Resulted Labs and/or images reviewed: Labs reviewed by me, Image(s) reviewed by me Assessment/Plan Assessment/Plan Sepsis secondary to urinary tract infection: Blood cultures negative, urine cultures pending, continue Rocephin Sick sinus syndrome and symptomatic bradycardia: Patient is scheduled for pacemaker placement on 08/10/2024 by applied psychology chair Paroxysmal atrial fibrillation IDDM HTN CAD s/p JODIE History of smoking HLD Hx of CVA Subcm lung nodule Bladder mass JAKE on CKD 3a deconditioning Intractable neck and back pain secondary to cervical spinal stenosis and lumbar spinal stenosis: Consult for Dr. Frederick appreciated, advised conservative management and physical therapy and pain management Patient is hospice revoked Patient is full code Time spent [address] Plan discussed with: Patient My Orders Orders - JOHN BUTLER MD Procedure Category Date Status Time Ct Ab Pel Wo Con-No CT 08/08/24 Resulted Oral Or Iv 10:58 *Tele Psych Consult CONS 08/08/24 Transmitted 12:38 Date of Service: Aug 09, 2024 Billing Provider: JOHN BUTLER MD Common Visit Codes: [id number] INP/OBS CARE(HIGH) JOHN BUTLER MD Aug 09, 2024 09:54
[2024-08-10 05:00] VITALS: BP 144/45; PULSE 53; RESP 17; TEMP 97.3; O2SAT 97
[2024-08-10 08:00] VITALS: PULSE 55
[2024-08-10 09:00] VITALS: BP 143/65; PULSE 59; RESP 18; TEMP 98.5; O2SAT 99
--- NOTE | 2024-08-10 10:21 | DVHPN2 ---
Reviewed: Care Plan, H&P, Labs, Medications, Previous Orders, Radiology Changes from previous H/P or p: No Changes Musculoskeletal: other (Left jaw pain), neck pain, shoulder pain, arm pain Objective Vitals Vital Signs Date Time Temp Pulse Resp B/P (MAP) Pulse Ox O2 Delivery O2 Flow Rate FiO2 08/10/24 09:00 98.5 59 18 143/65 (91) 99 98.5 08/09/24 19:30 Room Air* 0 21 Intake/Output Intake and Output 08/10/24 07:00 Intake Total 1500 ml Balance 1500 ml Intake Oral 1500 ml # Voids 8 Medications Current Medications Medications Dose Ordered Sig/[place] Route Start Time Stop Time Status Last Admin Dose Admin Sodium Chloride 1,000 ml @ 60 mls/hr [id number] IV 08/06/24 12:30 08/09/24 23:50 60 MLS/HR Acetaminophen/ Hydrocodone Bitart 1 tab Q4HP PRN PO 08/06/24 12:30 08/08/24 06:25 1 TAB Ondansetron HCl 4 mg Q4HP PRN IV 08/06/24 12:30 Acetaminophen 650 mg Q6HP PRN PO 08/06/24 12:30 08/08/24 20:39 650 MG Morphine Sulfate 2 mg Q4HPRN PRN IV 08/06/24 13:00 Nitroglycerin 0.4 mg Q5MINP PRN SL 08/06/24 12:30 Morphine Sulfate 2 mg Q30M PRN IV 08/06/24 13:00 Diagnostic Test (Pha) 1 strip ACHS 08/06/24 17:00 08/10/24 07:17 1 STRIP Insulin Human Regular ACHS SC 08/06/24 17:00 08/08/24 21:15 2 UNITS Dextrose 50 ml UD PRN IV 08/06/24 12:30 Amlodipine Besylate 5 mg DAILY PO 08/07/24 10:00 08/09/24 08:55 5 MG Aspirin 81 mg DAILY PO 08/07/24 10:00 08/09/24 08:54 81 MG Atorvastatin Calcium 40 mg HS PO 08/06/24 22:00 Lisinopril 40 mg DAILY PO 08/07/24 10:00 08/09/24 08:55 40 MG Metoprolol Succinate 25 mg DAILY PO 08/07/24 10:00 Hold 08/07/24 09:14 25 MG Ceftriaxone Sodium 50 ml @ 100 mls/hr DAILY@09 IV 08/06/24 18:00 08/07/24 09:10 100 MLS/HR Laboratory Results Laboratory Tests 08/07/24 05:58 08/09/24 05:34 Urinalysis Test 08/06/24 15:13 Urine Color Light-brown (Yellow) Urine Clarity Ex.turbid (Clear) Urine pH 6.0 (5.0-9.0) Urine Specific [place] 1.006 (1.001-1.035) Urine Protein 1+ (Negative) H Urine Ketones Negative (Negative) Urine Blood 2+ /uL (Negative) H Urine Nitrite Negative (Negative) Urine Bilirubin Negative (Negative) Urine Urobilinogen Normal mg/dL (Negative) Urine Leukocyte Esterase 3+ /uL (Negative) Urine RBC 19 /hpf (0 - 4) Urine WBC Clumps Present /hpf (None Seen) Urine Microscopic WBC 1787 /HPF (0-5) H Urine Squamous Epithelial Cells Mod /hpf (<5) Urine Bacteria None seen /hpf (None Seen) Urine Hyaline Casts Mod /lpf (0 - 2) Urine Mucus Few (None Seen) Urine Glucose Normal mg/dL (Normal) Microbiology Microbiology Date/Time Source Procedure Growth Status 08/07/24 14:00 Blood Blood Culture - Preliminary NO GROWTH AFTER 48 HOURS OF INCUBATION. Resulted 08/06/24 15:13 Voided Urine Urine Culture - Preliminary Resulted Labs and/or images reviewed: Labs reviewed by me, Image(s) reviewed by me Assessment/Plan Assessment/Plan Sepsis secondary to urinary tract infection: Blood cultures negative, urine cultures pending, treated with Rocephin Sick sinus syndrome and symptomatic bradycardia: Patient is scheduled for pacemaker placement on 08/10/2024 by [employer] but patient refused pacemaker, daughter Bonnie at bedside Paroxysmal atrial fibrillation IDDM HTN CAD s/p JODIE History of smoking HLD Hx of CVA Subcm lung nodule Bladder mass JAKE on CKD 3a deconditioning Possible depression and agitation: Tele psych consult placed but patient refused to participate Intractable neck and back pain secondary to cervical spinal stenosis and lumbar spinal stenosis: Consult for Dr. Frederick appreciated, advised conservative management and physical therapy and pain management Patient is hospice revoked Patient is full code Time spent 50 minutes Midline was placed on 6-15-25, but patient removed it. Discussed with the patient's daughter Jeaneth at bedside and she is requesting patient to be discharged home not on hospice Plan discussed with: Patient Date of Service: Aug 10, 2024 Billing Provider: JOHN BUTLER MD Common Visit Codes: [id number] INP/OBS CARE(HIGH) JOHN BUTLER MD Aug 10, 2024 10:21
[2024-08-10] MEDS ORDERED: CIPR-173 PO (10:22)
--- NOTE | 2024-08-10 10:28 | DVHDS2 ---
Discharge Summary Date of Admission Aug 06, 2024 at 12:19 Date of Discharge: Aug 10, 2024 Admitting Diagnosis Generalized weakness Wounds: None Labs/Diagnostic Data: Laboratory Results Test 08/10/24 05:59 08/09/24 05:34 08/07/24 12:17 08/07/24 05:58 POC Glucose 99 mg/dl (70-106) Sodium Level 142 mmol/L (136-145) Potassium Level 4.3 mmol/L (3.5-5.1) Chloride Level 109 mmol/L (98-107) Carbon Dioxide Level 24 mmol/L (20-31) Anion Gap 9 (5-15) Blood Urea Nitrogen 36 mg/dL (9-23) Creatinine 1.76 mg/dL (0.550-1.02) Glomerular Filtration Rate Calc 30 mL/min (>90) BUN/Creatinine Ratio 20.5 (10.0-20.0) Serum Glucose 105 mg/dL (74-106) Calcium Level 9.6 mg/dL (8.7-10.4) Total Bilirubin 0.2 mg/dL (0.2-1.0) Aspartate Amino Transferase (AST) 12 U/L (<34) Alanine Aminotransferase (ALT) < 9 U/L (7-40) Alkaline Phosphatase 80 U/L (46-116) Total Protein 6.5 g/dL (5.7-8.2) Albumin 3.6 g/dL (3.2-4.8) Prothrombin Time 10.7 sec (9.3-11.8) Prothrombin Time INR 1.01 (0.9-1.15) Activated Partial Thromboplast Time 29.9 SEC (24.5-34.5) White Blood Count 6.2 10^3/uL (4.4-10.8) Red Blood Count 3.82 10^6/uL (4.0-5.20) Hemoglobin 11.5 g/dL (12.2-16.2) Hematocrit 33.2 % (36.0-46.0) Mean Corpuscular Volume 87.1 fL (80.0-100.0) Mean Corpuscular Hemoglobin 30.0 pg (28.0-32.0) Mean Corpuscular Hemoglobin Concent 34.5 g/dL (32.0-36.0) Red Cell Distribution Width 13.9 % (11.8-14.3) Platelet Count 209 10^3/uL (140-450) Mean Platelet Volume 9.8 fL (6.9-10.8) Neutrophils (%) (Auto) 52.9 % (37.0-80.0) Lymphocytes (%) (Auto) 34.6 % (10.0-50.0) Monocytes (%) (Auto) 8.7 % (0.0-12.0) Eosinophils (%) (Auto) 2.7 % (0.0-7.0) Basophils (%) (Auto) 1.1 % (0.0-2.0) Neutrophils # (Auto) 3.3 10 ^3/uL (1.6-8.6) Lymphocytes # (Auto) 2.2 10 ^3/uL (0.4-5.4) Monocytes # (Auto) 0.5 10 ^3/uL (0-1.3) Eosinophils # (Auto) 0.2 10 ^3/uL (0-0.8) Basophils # (Auto) 0.1 10 ^3/uL (0-0.2) Nucleated Red Blood Cells 0.0 % B-Type Natriuretic Peptide 106.10 pg/mL (0-100) Thyroid Stimulating Hormone (TSH) 1.26 uIU/mL (0.55-4.78) Test 08/06/24 15:13 08/06/24 10:17 08/06/24 07:38 Urine Color Light-brown (Yellow) Urine Clarity Ex.turbid (Clear) Urine pH 6.0 (5.0-9.0) Urine Specific [place] 1.006 (1.001-1.035) Urine Protein 1+ (Negative) Urine Ketones Negative (Negative) Urine Blood 2+ /uL (Negative) Urine Nitrite Negative (Negative) Urine Bilirubin Negative (Negative) Urine Urobilinogen Normal mg/dL (Negative) Urine Leukocyte Esterase 3+ /uL (Negative) Urine RBC 19 /hpf (0 - 4) Urine WBC Clumps Present /hpf (None Seen) Urine Microscopic WBC 1787 /HPF (0-5) Urine Squamous Epithelial Cells Mod /hpf (<5) Urine Bacteria None seen /hpf (None Seen) Urine Hyaline Casts Mod /lpf (0 - 2) Urine Mucus Few (None Seen) Urine Glucose Normal mg/dL (Normal) Troponin I High Sensitivity 22 ng/L (</=34) Hemoglobin A1c 5.9 % A1C (<5.7) Other Laboratory Tests 08/09/24 05:34 08/07/24 05:58 Brief Hx & Hospital Course: 73-year-old female with a history of hypertension diabetes coronary artery disease hypercholesterolemia history of CVA bladder mass JAKE on CKD generalized debility possible depression history of smoking burden by the daughter for generalized weakness. Hospice was revoked. Found to have sepsis secondary to urinary tract infection treated with Rocephin blood cultures negative urine cultures pending patient also had sick sinus syndrome with symptomatic bradycardia cardiology suggested pacemaker placement but patient flatly refused. The patient also has been intermittently agitated and depressed tele psych consult was placed but the patient flatly refused to participate. Patient has had neck pain and back pain secondary to cervical spinal stenosis and lumbar spinal stenosis spine surgery consult by Dr. Frederick advised pain management and physical therapy. Patient had a midline placed for possible IV antibiotics for UTI but patient has removed . patient is not allowing to give intravenous antibiotics. Patient has been noncompliant throughout her stay Discussed with the patient's daughter Jeaneth at bedside being discharged back home with a p.o. antibiotics for UTI. The daughter does not want her to go back on hospice. Advised to follow up with the Urology regarding bladder mass. Consults/Reason for consult Spine surgeon Dr. Frederick Tele psych consult patient refused Operations or Procedures CT LS spine Condition at Discharge: Fair Final Diagnosis/Problems List Sepsis secondary to urinary tract infection: Blood cultures negative, urine cultures pending, continue Rocephin Sick sinus syndrome and symptomatic bradycardia: Patient is scheduled for pacemaker placement on 08/10/2024 by molded goods spot picker but patient refused pacemaker, daughter Bonnie at bedside Paroxysmal atrial fibrillation IDDM HTN CAD s/p JODIE History of smoking HLD Hx of CVA Subcm lung nodule Bladder mass JAKE on CKD 3a deconditioning Possible depression and agitation: Tele psych consult placed but patient refused to participate Intractable neck and back pain secondary to cervical spinal stenosis and lumbar spinal stenosis: Consult for Dr. Frederick appreciated, advised conservative management and physical therapy and pain management Discharge Disposition: Home Discharge Instruct/Medications Diet: Cardiac 2g Na,low cholest Activity: Light activity Follow Up/Referral: Follow up with the primary Dr in one week Resume all previous home medications Medications: Cipro Transmitted to pharmacy 39 (Time taken for discharge summary 39 minutes) Discharge Statement: "Patient was advised to return to the ER or call 911 if any headaches, dizziness, shortness of breath, chest pain, abdominal pain, bleeding, fevers, or worsening of medical condition. Patient was counseled about treatment plan, medications, possible side effects, patientverbalized understanding. All questions were answered to the best of my ability. This discharge took greater then 30 minutes in planning, reviewing documentation, counseling the patient, and discussing with other team members." ASSESSMENT ASSESSMENT Assessment Sepsis secondary to urinary tract infection: Blood cultures negative, urine cultures pending, continue Rocephin Sick sinus syndrome and symptomatic bradycardia: Patient is scheduled for pacemaker placement on 08/10/2024 by molded goods spot picker but patient refused pacemaker, daughter Bonnie at bedside Paroxysmal atrial fibrillation IDDM HTN CAD s/p JODIE History of smoking HLD Hx of CVA Subcm lung nodule Bladder mass JAKE on CKD 3a deconditioning Possible depression and agitation: Tele psych consult placed but patient refused to participate Intractable neck and back pain secondary to cervical spinal stenosis and lumbar spinal stenosis: Consult for Dr. Otoniel lloyd, advised conservative management and physical therapy and pain management Date of Service: Aug 10, 2024 Billing Provider: JOHN BUTLER MD Common Visit Codes: [id number] INP/OBS CARE(HIGH) JOHN BUTLER MD Aug 10, 2024 10:28
--- NOTE | 2024-08-10 10:58 | DVHINCON2 ---
Date of Service if different f: Aug 10, 2024 Time of Service: 10:57 Consultation ([place]) Labs Laboratory Tests Test 08/06/24 07:38 08/06/24 10:17 08/06/24 15:13 08/07/24 05:58 Hemoglobin A1c 5.9 % A1C (<5.7) Troponin I High Sensitivity 22 ng/L (</=34) Urine Color Light-brown (Yellow) Urine Clarity Ex.turbid (Clear) Urine pH 6.0 (5.0-9.0) Urine Specific [place] 1.006 (1.001-1.035) Urine Protein 1+ (Negative) Urine Ketones Negative (Negative) Urine Blood 2+ /uL (Negative) Urine Nitrite Negative (Negative) Urine Bilirubin Negative (Negative) Urine Urobilinogen Normal mg/dL (Negative) Urine Leukocyte Esterase 3+ /uL (Negative) Urine RBC 19 /hpf (0 - 4) Urine WBC Clumps Present /hpf (None Seen) Urine Microscopic WBC 1787 /HPF (0-5) Urine Squamous Epithelial Cells Mod /hpf (<5) Urine Bacteria None seen /hpf (None Seen) Urine Hyaline Casts Mod /lpf (0 - 2) Urine Mucus Few (None Seen) Urine Glucose Normal mg/dL (Normal) White Blood Count 6.2 10^3/uL (4.4-10.8) Red Blood Count 3.82 10^6/uL (4.0-5.20) Hemoglobin 11.5 g/dL (12.2-16.2) Hematocrit 33.2 % (36.0-46.0) Mean Corpuscular Volume 87.1 fL (80.0-100.0) Mean Corpuscular Hemoglobin 30.0 pg (28.0-32.0) Mean Corpuscular Hemoglobin Concent 34.5 g/dL (32.0-36.0) Red Cell Distribution Width 13.9 % (11.8-14.3) Platelet Count 209 10^3/uL (140-450) Mean Platelet Volume 9.8 fL (6.9-10.8) Neutrophils (%) (Auto) 52.9 % (37.0-80.0) Lymphocytes (%) (Auto) 34.6 % (10.0-50.0) Monocytes (%) (Auto) 8.7 % (0.0-12.0) Eosinophils (%) (Auto) 2.7 % (0.0-7.0) Basophils (%) (Auto) 1.1 % (0.0-2.0) Neutrophils # (Auto) 3.3 10 ^3/uL (1.6-8.6) Lymphocytes # (Auto) 2.2 10 ^3/uL (0.4-5.4) Monocytes # (Auto) 0.5 10 ^3/uL (0-1.3) Eosinophils # (Auto) 0.2 10 ^3/uL (0-0.8) Basophils # (Auto) 0.1 10 ^3/uL (0-0.2) Nucleated Red Blood Cells 0.0 % B-Type Natriuretic Peptide 106.10 pg/mL (0-100) Thyroid Stimulating Hormone (TSH) 1.26 uIU/mL (0.55-4.78) Test 08/07/24 12:17 08/09/24 05:34 08/10/24 05:59 Prothrombin Time 10.7 sec (9.3-11.8) Prothromb Time International Ratio 1.01 (0.9-1.15) Activated Partial Thromboplast Time 29.9 SEC (24.5-34.5) Sodium Level 142 mmol/L (136-145) Potassium Level 4.3 mmol/L (3.5-5.1) Chloride Level 109 mmol/L (98-107) Carbon Dioxide Level 24 mmol/L (20-31) Anion Gap 9 (5-15) Blood Urea Nitrogen 36 mg/dL (9-23) Creatinine 1.76 mg/dL (0.550-1.02) Glomerular Filtration Rate Calc 30 mL/min (>90) BUN/Creatinine Ratio 20.5 (10.0-20.0) Serum Glucose 105 mg/dL (74-106) Calcium Level 9.6 mg/dL (8.7-10.4) Total Bilirubin 0.2 mg/dL (0.2-1.0) Aspartate Amino Transf (AST/SGOT) 12 U/L (<34) Alanine Aminotransferase (ALT/SGPT) < 9 U/L (7-40) Alkaline Phosphatase 80 U/L (46-116) Total Protein 6.5 g/dL (5.7-8.2) Albumin 3.6 g/dL (3.2-4.8) Bedside Glucose 99 mg/dl (70-106) Microbiology Date/Time Source Procedure Growth Status 08/07/24 14:00 Blood Blood Culture - Preliminary NO GROWTH AFTER 48 HOURS OF INCUBATION. Resulted 08/06/24 15:13 Voided Urine Urine Culture - Preliminary Resulted Vitals Vital Signs Date Time Temp Pulse Resp B/P (MAP) Pulse Ox O2 Delivery O2 Flow Rate FiO2 08/10/24 09:00 98.5 59 18 143/65 (91) 99 98.5 08/09/24 19:30 Room Air* 0 21 Current medications Current Medications Medications Dose Ordered Sig/[place]olis Route Start Time Stop Time Status Last Admin Dose Admin Sodium Chloride 1,000 ml @ 60 mls/hr [id number] IV 08/06/24 12:30 08/09/24 23:50 60 MLS/HR Acetaminophen/ Hydrocodone Bitart 1 tab Q4HP PRN PO 08/06/24 12:30 08/08/24 06:25 1 TAB Ondansetron HCl 4 mg Q4HP PRN IV 08/06/24 12:30 Acetaminophen 650 mg Q6HP PRN PO 08/06/24 12:30 08/08/24 20:39 650 MG Morphine Sulfate 2 mg Q4HPRN PRN IV 08/06/24 13:00 Nitroglycerin 0.4 mg Q5MINP PRN SL 08/06/24 12:30 Morphine Sulfate 2 mg Q30M PRN IV 08/06/24 13:00 Diagnostic Test (Pha) 1 strip ACHS 08/06/24 17:00 08/10/24 07:17 1 STRIP Insulin Human Regular ACHS SC 08/06/24 17:00 08/08/24 21:15 2 UNITS Dextrose 50 ml UD PRN IV 08/06/24 12:30 Amlodipine Besylate 5 mg DAILY PO 08/07/24 10:00 08/09/24 08:55 5 MG Aspirin 81 mg DAILY PO 08/07/24 10:00 08/09/24 08:54 81 MG Atorvastatin Calcium 40 mg HS PO 08/06/24 22:00 Lisinopril 40 mg DAILY PO 08/07/24 10:00 08/09/24 08:55 40 MG Metoprolol Succinate 25 mg DAILY PO 08/07/24 10:00 Hold 08/07/24 09:14 25 MG Ceftriaxone Sodium 50 ml @ 100 mls/hr DAILY@09 IV 08/06/24 18:00 08/07/24 09:10 100 MLS/HR Psychiatry consult canceled. ARIELA STRAUSS MD Aug 10, 2024 10:58
[2024-08-10] MEDS ORDERED: BACDST PO (11:16)
[2024-08-10 11:52] VITALS: BP 143/65; PULSE 59; RESP 18; TEMP 98.5; O2SAT 99
--- NOTE | 2024-08-10 12:44 | ECG ---
[facility] Test Date: 2024-08-06 Test Time: 10:39:59 Pat Name: OTTO MCCABE Department: ED Room: 0235T A Gender: F Flow Trader: MARYAM : 1950 Requested By: PRASHANTH GALLAGHER Order Number: [id number] Reading MD: Lee Kc Measurements Intervals [place] Rate: 45 P: 2 IN: 116 QRS: -17 QRSD: 96 T: -29 QT: 490 QTc: 424 Interpretive Statements Sinus bradycardia Borderline short IN interval Low voltage, precordial leads Left ventricular hypertrophy Borderline T abnormalities, diffuse leads Electronically Signed On 08-11-2024 17:25:42 PDT by Lee Kc Please click the below link to view image of tracing.
== END 2024-08-10 14:10 | disposition home or self-care (01) | DRG 872 ==
LOC: ER 07:07 → EDBD 07:07 → EDSEX 07:07 → OVERFLOW 12:19 → EAST 16:09 → TELE-EAST 17:48
PROVIDERS: ADMIT Family Medicine; ATTEND Family Medicine
PROC: 05HC33Z Insertion of Infusion Device into Left Basilic Vein, Percutaneous Approach (ICD-10-PCS; principal; 2024-08-09)
PROC: B54NZZA Ultrasonography of Left Upper Extremity Veins, Guidance (ICD-10-PCS; 2024-08-09)
DX: A41.9 Sepsis, unspecified organism (principal); N17.9 Acute kidney failure, unspecified; N13.6 Pyonephrosis; I69.354 Hemiplegia and hemiparesis following cerebral infarction affecting left non-dominant side; M48.02 Spinal stenosis, cervical region; M51.35 Other intervertebral disc degeneration, thoracolumbar region; Z74.01 Bed confinement status; I48.0 Paroxysmal atrial fibrillation; I49.5 Sick sinus syndrome; R00.1 Bradycardia, unspecified; N18.31 Chronic kidney disease, stage 3a; I12.9 Hypertensive chronic kidney disease with stage 1 through stage 4 chronic kidney disease, or unspecified chronic kidney disease; E11.22 Type 2 diabetes mellitus with diabetic chronic kidney disease; M48.062 Spinal stenosis, lumbar region with neurogenic claudication; F03.90 Unspecified dementia, unspecified severity, without behavioral disturbance, psychotic disturbance, mood disturbance, and anxiety; R91.1 Solitary pulmonary nodule; M50.30 Other cervical disc degeneration, unspecified cervical region; J44.9 Chronic obstructive pulmonary disease, unspecified; I25.118 Atherosclerotic heart disease of native coronary artery with other forms of angina pectoris; E66.9 Obesity, unspecified; E78.5 Hyperlipidemia, unspecified; F32.A Depression, unspecified; I25.10 Atherosclerotic heart disease of native coronary artery without angina pectoris; E78.00 Pure hypercholesterolemia, unspecified; Z91.199 Patient's noncompliance with other medical treatment and regimen due to unspecified reason; Z88.0 Allergy status to penicillin; Z79.4 Long term (current) use of insulin; Z79.899 Other long term (current) drug therapy; Z79.82 Long term (current) use of aspirin; Z83.3 Family history of diabetes mellitus; Z87.440 Personal history of urinary (tract) infections; Z87.891 Personal history of nicotine dependence; Z95.5 Presence of coronary angioplasty implant and graft; Z83.49 Family history of other endocrine, nutritional and metabolic diseases; Z99.81 Dependence on supplemental oxygen; Z95.0 Presence of cardiac pacemaker; Z68.31 Body mass index [BMI] 31.0-31.9, adult; I25.2 Old myocardial infarction
CPT/HCPCS: 36415; 71045; 72125; 72131; 72141; 72148; 74176; 80053; 81001; 82962; 83036; 83880; 84443; 84484; 85025; 85610; 85730; 87040; 87086; 87088; 87186; 93005; 93306; G0378; J1815

== ENCOUNTER 2024-08-19 06:35 | Inpatient (IN) | payer OTHER, MEDICAID ==
[~2024-08-19] VITALS: Ht 160 cm; Wt 82.3 kg
[~2024-08-19 06:35] MED LIST changes: +BACDST PO
--- NOTE | 2024-08-19 06:47 | ECG ---
[facility] Test Date: 2024-08-19 Test Time: 06:40:53 Pat Name: OTTO MCCABE Department: ED Room: 0233 Gender: F Broadcast Operations Engineer: KEIKO : 1950 Requested By: EMERGENCY EMERGENCY Order Number: [id number] Reading MD: Lee Kc Measurements Intervals [place] Rate: 44 P: 0 AL: 0 QRS: -12 QRSD: 94 T: -15 QT: 480 QTc: 411 Interpretive Statements Atrial fibrillation Low voltage, precordial leads Posterior infarct, old Borderline T abnormalities, inferior leads Borderline ST elevation, lateral leads Electronically Signed On 08-22-2024 19:56:48 PDT by Lee Kc Please click the below link to view image of tracing.
--- NOTE | 2024-08-19 07:30 | ED.PDOC ---
Back pain HPI HPI Comments 73 y/o F, with PMHx of DM, HTN, MN, CVA, HLD, dementia, arthritis and chronic back pain presents to the ED for CC of back pain. EMS reports, patient is coming from home, where emergency medical personal was called by patient's daughter d/t patient c/o cervical to tail bone back pain x1day. EMS relays, patient was previously seen at [facility] for Dx:UTI approximately [id number] ago and was prescribed IV antibiotics; daughter endorses patient ripping out midline unknown if patient finished course of antibiotics. Per patient's daughter, patient does have PMhx of chronic back pain; patient is bed bound and unable to ambulate. At this time patient is A&Ox2, this is patient's baseline; no other symptoms or modifying factors obtainable. Chief Complaint: Back Pain Time Seen by MD: 07:00 Primary Care Provider: UNKNOWN Reviewed Notes: Nurses Notes, Medications, Allergies Allergies: Coded Allergies: Penicillins (Verified Allergy, Unknown, 03/16/24) Home Meds Active Scripts Sulfamethoxazole W/Trimethopri (Bactrim Ds Tablet) 1 Tab Tb, 1 TAB PO BID, #20 TAB Prov:JOHN BUTLER MD 08/10/24 Linezolid (Zyvox) 600 Mg Tab, 600 MG PO BID for 14 Days, #28 TAB Prov:CLARE RAMOS MD 05/31/24 Levofloxacin Hemihydrate (LEVAQUIN 500 MG) 500 Mg Tab, 1 TAB PO DAILY, #7 TAB Prov:JOHN BUTLER MD 03/19/24 Reported Medications Insulin Glargine (Basaglar Kwikpen) 100 Unit/Ml Inj, 27 UNITS SC HS 03/16/24 Metoprolol Succinate (Metoprolol Succinate Er) 25 Mg Tab, 1 TAB PO DAILY 03/16/24 Amlodipine Besylate (Amlodipine Besylate) 5 Mg Tab, 1 TAB PO DAILY 03/16/24 Aspirin (Aspirin Low Dose) 81 Mg Chw, 1 TAB PO DAILY 03/16/24 Atorvastatin Calcium (ATORVASTATIN CALCIUM) 80 Mg Tab, 40 MG PO DAILY 03/16/24 Lisinopril (Lisinopril) 40 Mg Tab, 1 TAB PO DAILY 03/16/24 Information Source: Patient Mode of Arrival: EMS Timing: Days Duration: Since onset Location of Back pain: (B) Cervical, (R) Lumbar, (B) Upper back Severity: Moderate Prehospital treatment: None Onset: Spontaneous History of: Chronic Back Pain, Arthritis, UTI Modifying Factors: Nothing Associated signs and symptoms: None Past Medical History PAST MEDICAL HISTORY: Arthritis, CKF, CVA, Dementia, DM, High Lipids, HTN, MN, Seizures, UTI'S Surgical History: Denies all surgeries 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 TIPPER HAND History: No Pertinent UMBRELLA TIPPER HAND History Family History Family History: Reviewed,noncontributory to illness, Unknown Social History Smoker: Non-Smoker, Unknown Alcohol: Denies ETOH Use, Unknown Drugs: Denies Drug Use, Unknown Lives In: Home Unable to Obtain due to: Dementia All Other Systems: Reviewed and Negative Physical Exam General Appearance: Moderate Distress HEENT: Normal ENT Inspection, Pharynx Normal, TMs Normal Neck: Full Range of Motion, Non-Tender, Normal, Normal Inspection Respiratory: Chest Non-Tender, Lungs Clear, No Accessory Muscle Use, No Respiratory Distress, Normal Breath Sounds Cardiovascular: Bradycardia Breast Exam: Deferred Gastrointestinal: No Organomegaly, Non Tender, No Pulsatile Mass, Normal Bowel Sounds, Soft Genitalia: Deferred Pelvic: Deferred Rectal: Deferred Extremities: No calf tenderness, No pedal edema Musculoskeletal : Apperance: Normal Neurologic: Alert, Motor Weakness (Bilateral lower extremity chronic), No Sensory Deficits Cerebellar Function: NOT DONE Reflexes: NOT DONE Skin: Normal Color Peripheral Pulses: 3+ Radial (R), 3+ Radial (L) Lymphatic: No Adenopathy Was a procedure done? Was a procedure done?: No Back Pain Differential Dx Differential Diagnosis: Musculoskeletal Pain, Strain X-Ray, Labs, Meds, VS Vital Signs Date Time Temp Pulse Resp B/P (MAP) Pulse Ox O2 Delivery O2 Flow Rate FiO2 08/19/24 08:30 51 14 97 Room Air* 0 21 08/19/24 08:30 98.2 51 10 178/87 (117) 99 98.2 08/19/24 08:00 46 08/19/24 07:09 98.1 49 16 164/62 (96) 99 98.1 08/19/24 06:40 44 Lab Test 08/19/24 08:35 08/19/24 07:34 Range/Units Urine Color Colorless Yellow Urine Clarity Clear Clear Urine pH 6.0 5.0-9.0 Urine Specific [place] 1.008 1.001-1.035 Urine Protein Negative Negative Urine Ketones Negative Negative Urine Blood Negative Negative /uL Urine Nitrite Negative Negative Urine Bilirubin Negative Negative Urine Urobilinogen Normal Negative mg/dL Urine Leukocyte Esterase 3+ Negative /uL Urine RBC 2 0 - 4 /hpf Urine Microscopic WBC 92 H 0-5 /HPF Urine Squamous Epithelial Cells Few <5 /hpf Urine Bacteria Few H None Seen /hpf Urine Glucose Normal Normal mg/dL White Blood Count 6.2 4.4-10.8 10^3/uL Red Blood Count 4.07 4.0-5.20 10^6/uL Hemoglobin 11.9 L 12.2-16.2 g/dL Hematocrit 36.0 36.0-46.0 % Mean Corpuscular Volume 88.5 80.0-100.0 fL Mean Corpuscular Hemoglobin 29.4 28.0-32.0 pg Mean Corpuscular Hemoglobin Concent 33.2 32.0-36.0 g/dL Red Cell Distribution Width 13.8 11.8-14.3 % Platelet Count 214 140-450 10^3/uL Mean Platelet Volume 9.0 6.9-10.8 fL Neutrophils (%) (Auto) 38.8 37.0-80.0 % Lymphocytes (%) (Auto) 48.8 10.0-50.0 % Monocytes (%) (Auto) 8.1 0.0-12.0 % Eosinophils (%) (Auto) 3.4 0.0-7.0 % Basophils (%) (Auto) 0.9 0.0-2.0 % Neutrophils # (Auto) 2.4 1.6-8.6 10 ^3/uL Lymphocytes # (Auto) 3.0 0.4-5.4 10 ^3/uL Monocytes # (Auto) 0.5 0-1.3 10 ^3/uL Eosinophils # (Auto) 0.2 0-0.8 10 ^3/uL Basophils # (Auto) 0.1 0-0.2 10 ^3/uL Nucleated Red Blood Cells 0.0 % Sodium Level 144 136-145 mmol/L Potassium Level 4.6 3.5-5.1 mmol/L Chloride Level 113 H 98-107 mmol/L Carbon Dioxide Level 23 20-31 mmol/L Anion Gap 8 5-15 Blood Urea Nitrogen 27 H 9-23 mg/dL Creatinine 1.67 H 0.550-1.02 mg/dL Glomerular Filtration Rate Calc 32 >90 mL/min BUN/Creatinine Ratio 16.2 10.0-20.0 Serum Glucose 86 74-106 mg/dL Calcium Level 9.9 8.7-10.4 mg/dL Troponin I High Sensitivity 19 </=34 ng/L Current Medications Medications (Trade) Dose Ordered Sig/Solis Route Start Time Stop Time Status Last Admin Glucagon (Glucagen) 1 mg ONCE ONCE IM 08/19/24 07:15 08/19/24 07:16 DC 08/19/24 08:20 Sodium Chloride 1,000 ml @ 1,000 mls/hr Q1H ONCE IV 08/19/24 07:15 08/19/24 08:14 DC 08/19/24 08:41 [place] [address] Ph: [phone] DIAGNOSTIC IMAGING Diagnostic Imaging Report : [id number] Signed PATIENT: OTTO MCCABE ACCT: [id number] UNIT: [id number] : 1950 LOC: ER ROOM / BED: / AGE / SEX: 73 / F ADM STATUS: REG ER SERVICE 4 ORDERING PHYSICIAN: TERESITA ROSAS MD PROCEDURE(s): CXRP - CHEST PORTABLE REASON: sob ORDER NUMBER(s): [id number], ACCESSION NUMBER(s): [id number] EXAM: XY CHEST PORTABLE HISTORY: sob COMPARISON: XY CHEST PORTABLE on DOS: 08/06/24, XY CHEST XRAY 1 VIEW on DOS: 03/16/24 TECHNIQUE: Portable upright AP view of the chest was performed. FINDINGS: The left costophrenic angle is not fully imaged here. No pneumothorax, consolidative infiltrates, or pulmonary edema. The heart is borderline enlarged. The aortic arch is calcific. There is thoracic degenerative disc disease. IMPRESSION: No acute intrathoracic process. ATED BY: LIZZ RIVERA MD DICTATED DATE/TIME: 08/19/24735 SIGNED BY: LIZZ RIVERA MD SIGNED DATE/TIME: 08/19/24735 CC: Patient alert. Complaining of back pain. Blood pressure elevated. Vitals stable. She is bed ridden. No leg swelling. WBC within normal limits. EKG does show bradycardia. She is on metoprolol. She is going glucagon. Possible urosepsis. Reviewed her previous visit. Explained to the patient. Continue monitoring. Time of 1ST Reevaluation: 07:30 Reevaluation 1ST: Unchanged Patient Education/Counseling: Diagnosis, Treatment Family Education/Counseling: No Family Present SEPSIS Sepsis Screen Date sepsis recognized/suspect: Aug 19, 2024 Time Sepsis recognized/suspect: 639 Recent Procedure: No On Antibiotic Therapy: No Respiratory Rate >20: No Heart Rate >90: No Temp<36 C (96.8 F) or >38.3 C: No SBP <90 or MAP <65 mmHG: No New Acute Mental Status Change: No Is the patient on CPAP, BIPAP,: No Physician Orders Electrocardigram (08/19/24 07:45) Electrocardigram (08/19/24 09:45) Chest Portable (08/19/24 07:05) Sodium Chloride 0.9% (08/19/24 07:15) Vital Signs Date Time Temp Pulse Resp B/P (MAP) Pulse Ox O2 Delivery O2 Flow Rate FiO2 08/19/24 08:30 51 14 97 Room Air* 0 21 08/19/24 08:30 98.2 51 10 178/87 (117) 99 98.2 08/19/24 08:00 46 08/19/24 07:09 98.1 49 16 164/62 (96) 99 98.1 08/19/24 06:40 44 Laboratory Tests Test 08/19/24 07:34 White Blood Count 6.2 10^3/uL (4.4-10.8) Medications Medications Dose Ordered Sig/Solis Route Start Time Stop Time Status Last Admin Dose Admin Glucagon 1 mg ONCE ONCE IM 08/19/24 07:15 08/19/24 07:16 DC 08/19/24 08:20 Sodium Chloride 1,000 ml @ 1,000 mls/hr Q1H ONCE IV 08/19/24 07:15 08/19/24 08:14 DC 08/19/24 08:41 Departure 1 Departure Time of Disposition: 08:07 Impression: Primary Impression: Symptomatic bradycardia Additional Impression: Sepsis due to urinary tract infection Disposition: ADMITTED INPATIENT Admit to: Med Surg Condition: Guarded Critical Care Note Critical Care Time?: Yes (90 min-critical care time only) Critical care comment: Bradycardia continue to monitoring give glucagon Stability Stability form required: No Heart Score Heart Score: Heart Score Response (Comments) Value History Slightly Suspicious 0 EKG Normal 0 Age >65 2 Risk Factors >3 or Hx ASHD 2 Troponin Normal limit 0 Total 4 I personally scribed for TERESITA ROSAS MD ([email or web address]) on 08/19/24 at 07:30. Electronically submitted by Neema Scott ([employer] I personally scribed for TERESITA ROSAS MD ([email or web address]) on 08/19/24 at 08:16. Electronically submitted by Neema Scott ([employer]). TERESITA ROSAS MD Aug 19, 2024 07:30
--- NOTE | 2024-08-19 07:39 | DVH ---
EXAM: XY CHEST PORTABLE HISTORY: sob COMPARISON: XY CHEST PORTABLE on DOS: 08/06/24, XY CHEST XRAY 1 VIEW on DOS: 03/16/24 TECHNIQUE: Portable upright AP view of the chest was performed. FINDINGS: The left costophrenic angle is not fully imaged here. No pneumothorax, consolidative infiltrates, or pulmonary edema. The heart is borderline enlarged. The aortic arch is calcific. There is thoracic deg enerative disc disease. IMPRESSION: No acute intrathoracic process.
[2024-08-19 07:52] LABS: Basophils # (auto) 0.1 10 ^3/uL (0-0.2); Basophils % (auto) 0.9 % (0.0-2.0); Eosinophils # (auto) 0.2 10 ^3/uL (0-0.8); Eosinophils % (auto) 3.4 % (0.0-7.0); Hemoglobin 11.9 g/dL (12.2-16.2); Lymphocytes % (auto) 48.8 % (10.0-50.0); Mean Corpuscular Hemoglobin 29.4 pg (28.0-32.0); Mean Corpuscular Hgb Conc. 33.2 g/dL (32.0-36.0); Mean Corpuscular Volume 88.5 fL (80.0-100.0); Monocytes # (auto) 0.5 10 ^3/uL (0-1.3); Monocytes % (auto) 8.1 % (0.0-12.0); Neutrophils # (auto) 2.4 10 ^3/uL (1.6-8.6); Neutrophils % (auto) 38.8 % (37.0-80.0); Platelet Count (auto) 214 10^3/uL (140-450); Red Blood Cells 4.07 10^6/uL (4.0-5.20); Red Cell Distribution Width 13.8 % (11.8-14.3); White Blood Cell 6.2 10^3/uL (4.4-10.8)
[2024-08-19] MEDS: GLUCAGON EMERG KIT 1mg/1ml IM ONE (08:20)
[2024-08-19 08:23] LABS: Calcium 9.9 mg/dL (8.7-10.4); Chloride 113 mmol/L (98-107)
[2024-08-19 08:27] LABS: BUN/Creatinine Ratio 16.2 (10.0-20.0); Glucose 86 mg/dL (74-106)
[2024-08-19 08:28] LABS: Blood Urea Nitrogen 27 mg/dL (9-23)
[2024-08-19 08:30] VITALS: PULSE 51; RESP 14; O2SAT 97
[2024-08-19] MEDS: SODIUM CHLORIDE 0.9% 1,000 ML IV ONE ×2 (08:41→13:25)
[2024-08-19] MEDS: STERILE WATER 10 ML ONE (08:41)
[2024-08-19 08:46] LABS: Potassium 4.6 mmol/L (3.5-5.1); Sodium 144 mmol/L (136-145)
[2024-08-19 08:47] LABS: Anion Gap 8 (5-15); Carbon Dioxide 23 mmol/L (20-31)
[2024-08-19 09:00] LABS: Urine Bacteria FEW /hpf (None Seen); Urine Blood Negative /uL (Negative); Urine Clarity Clear (Clear); Urine Color Colorless (Yellow); Urine Protein, UAD Negative (Negative); Urine Specific Gravity 1.008 (1.001-1.035); Urine Squamous Epithelial Cell FEW /hpf (<5); Urine Urobilinogen Normal (Negative); Urine WBC 92 /HPF (0-5)
[2024-08-19] MEDS: SULFAMETH-TRIMETH 80/16MG-ML 10 ML in D5W 5% 250 ML IV ONE (11:54)
[2024-08-19] MEDS ORDERED: ONDANSETRON HCL 4 MG/2 ML VIAL IV PRN (13:15)
[2024-08-19] MEDS ORDERED: DEXTROSE (50%) 50ML SYRG IV PRN (13:15)
[2024-08-19] MEDS: HYDROcodone-ACET 10/325MG TAB PO ONE (13:22)
--- NOTE | 2024-08-19 13:35 | DVHHP2 ---
History of Present Illness Reason for Visit: Back pain History of Present Illness Grisel Raymond is a 73-year-old female with past medical history of hypertension, hyperlipemia, bradycardia, chronic back pain, and diabetes who came to the hospital for back pain. Patient was recently admitted for similar complaints. While she was here she refused to have back surgery, she refused to get a pacemaker, and at times she refused the IV antibiotics. She states now that she still does not want any surgery, but she will take the IV antibiotics. Cardiovascular: HTN, hyperipidemia Musculoskeletal: Chronic low back pain Endocrine: Diabetes Past Surgical History: None Smoke: No ALCOHOL: none Drugs: None Lives: with Family Review of Systems Constitutional: Yes: Weakness, Malaise; No: Fever, Chills, Sweats, Other Eyes: No: Pain, Vision change, Conjunctivae inflammation, Eyelid inflammation, Other, Redness ENT: No: Ear pain, Ear discharge, Nose pain, Nose discharge, Nose congestion, Mouth pain, Mouth swelling, Throat pain, Throat swelling, Other Respiratory: No: Cough, Dry, Shortness of breath, SOB with excertion, Wheezing, Hemoptysis, Pleuritic Pain, Sputum, Wheezing, Other Cardiovascular: No: Chest Pain, Palpitations, Orthopnea, Paroxysmal Noc. Dyspnea, Edema, Lt Headedness, Other Gastrointestinal: No: Nausea, Vomiting, Abdominal Pain, Diarrhea, Constipation, Melena, Hematochezia, Other Genitourinary: No Dysuria, No Frequency, No Incontinence, No Hematuria, No Retention, No Other Musculoskeletal: No: other, neck pain, shoulder pain, arm pain, back pain, hand pain, leg pain, foot pain Skin: No: Rash, Lesions, Jaundice, Bruising, Other Neurological: Weakness; No: Numbness, Incoordination, Change in speech, Confusion, Seizures, Other Allergies: Coded Allergies: Penicillins (Verified Allergy, Unknown, 03/16/24) Medications Current Medications Medications Dose Ordered Sig/Solis Route Start Time Stop Time Status Last Admin Dose Admin Acetaminophen/ Hydrocodone Bitart 1 tab Q4HP PRN PO 08/19/24 13:15 UNV Ondansetron HCl 4 mg Q4HP PRN IV 08/19/24 13:15 UNV Docusate Sodium 100 mg BIDPRN PRN PO 08/19/24 13:15 UNV Acetaminophen 650 mg Q6HP PRN PO 08/19/24 13:15 UNV Amlodipine Besylate 5 mg DAILY PO 08/20/24 10:00 UNV Patient Own Medication 1 tab DAILY PO 08/20/24 10:00 UNV Patient Own Medication 40 mg DAILY PO 08/20/24 10:00 UNV Patient Own Medication 27 units HS SC 08/19/24 22:00 UNV Patient Own Medication 1 tab DAILY PO 08/20/24 10:00 UNV Diagnostic Test (Pha) 1 strip ACHS 08/19/24 17:00 UNV Insulin Human Regular HS SC 08/19/24 22:00 UNV Insulin Human Regular AC SC 08/19/24 17:00 UNV Dextrose 50 ml UD PRN IV 08/19/24 13:15 UNV Exam Vital Signs Vital Signs Date Time Temp Pulse Resp B/P (MAP) Pulse Ox O2 Delivery O2 Flow Rate FiO2 08/19/24 12:30 51 10 180/61 (100) 98 08/19/24 08:30 Room Air* 0 21 08/19/24 08:30 98.2 98.2 General Appearance: Alert, Oriented X3, Cooperative, mild distress HEENT: Atraumatic, PERRLA, Mucous membr. moist/pink Respiratory: Clear to auscultation, Normal air movement Cardiovascular: Normal S1, Normal S2, Other (SB) Abdominal: Normal bowel sounds, Soft, No tenderness Extremities: No clubbing, No cyanosis, No edema, Normal pulses, No tenderness/swelling Skin: No rashes, No breakdown, No significant lesion Neuro: Normal gait, Normal speech, Strength at 5/5 X4 ext, Normal tone, Sensation intact Psych/Mental Status: Mental status NL Labs/Xrays Labs Test 08/19/24 08:35 08/19/24 07:34 Range/Units Urine Color Colorless Yellow Urine Clarity Clear Clear Urine pH 6.0 5.0-9.0 Urine Specific [place] 1.008 1.001-1.035 Urine Protein Negative Negative Urine Ketones Negative Negative Urine Blood Negative Negative /uL Urine Nitrite Negative Negative Urine Bilirubin Negative Negative Urine Urobilinogen Normal Negative mg/dL Urine Leukocyte Esterase 3+ Negative /uL Urine RBC 2 0 - 4 /hpf Urine Microscopic WBC 92 H 0-5 /HPF Urine Squamous Epithelial Cells Few <5 /hpf Urine Bacteria Few H None Seen /hpf Urine Glucose Normal Normal mg/dL White Blood Count 6.2 4.4-10.8 10^3/uL Red Blood Count 4.07 4.0-5.20 10^6/uL Hemoglobin 11.9 L 12.2-16.2 g/dL Hematocrit 36.0 36.0-46.0 % Mean Corpuscular Volume 88.5 80.0-100.0 fL Mean Corpuscular Hemoglobin 29.4 28.0-32.0 pg Mean Corpuscular Hemoglobin Concent 33.2 32.0-36.0 g/dL Red Cell Distribution Width 13.8 11.8-14.3 % Platelet Count 214 140-450 10^3/uL Mean Platelet Volume 9.0 6.9-10.8 fL Neutrophils (%) (Auto) 38.8 37.0-80.0 % Lymphocytes (%) (Auto) 48.8 10.0-50.0 % Monocytes (%) (Auto) 8.1 0.0-12.0 % Eosinophils (%) (Auto) 3.4 0.0-7.0 % Basophils (%) (Auto) 0.9 0.0-2.0 % Neutrophils # (Auto) 2.4 1.6-8.6 10 ^3/uL Lymphocytes # (Auto) 3.0 0.4-5.4 10 ^3/uL Monocytes # (Auto) 0.5 0-1.3 10 ^3/uL Eosinophils # (Auto) 0.2 0-0.8 10 ^3/uL Basophils # (Auto) 0.1 0-0.2 10 ^3/uL Nucleated Red Blood Cells 0.0 % Sodium Level 144 136-145 mmol/L Potassium Level 4.6 3.5-5.1 mmol/L Chloride Level 113 H 98-107 mmol/L Carbon Dioxide Level 23 20-31 mmol/L Anion Gap 8 5-15 Blood Urea Nitrogen 27 H 9-23 mg/dL Creatinine 1.67 H 0.550-1.02 mg/dL Glomerular Filtration Rate Calc 32 >90 mL/min BUN/Creatinine Ratio 16.2 10.0-20.0 Serum Glucose 86 74-106 mg/dL Calcium Level 9.9 8.7-10.4 mg/dL Troponin I High Sensitivity 19 </=34 ng/L EXAM: XY CHEST PORTABLE FINDINGS: The left costophrenic angle is not fully imaged here. No pneumothorax, consolidative infiltrates, or pulmonary edema. The heart is borderline enlarged. The aortic arch is calcific. There is thoracic degenerative disc disease. IMPRESSION: No acute intrathoracic process. Assessment/Plan Assessment/Plan Assessment: Complicated UTI (urinary tract infection), Chronic back pain, Bradycardia, Hypertension, Hyperlipidemia, Diabetes, Plan: Admit to Med-Surg, IV antibiotics, IV hydration, Pain management, Physical therapy evaluation, Home medications reconciled, Plan discussed with: Patient My Orders Orders - MAGGIE STARK ACCOUNT ASSISTANT Procedure Category Date Status Time Lactic Acid W/ Reflex LAB 08/19/24 Logged Order 13:08 Admit ADMIT 08/19/24 Transmitted 13:08 Code Status CODE 08/19/24 Transmitted 13:08 2 Gm Sodium Diet DIET 08/19/24 Transmitted Lunch Hydrocodone-Acet PHA 08/19/24 Logged 5/325mg Tab ([place] 13:15 Ondansetron Hcl PHA 08/19/24 Logged (Zofran) 13:15 Docusate Sodium PHA 08/19/24 Logged Capsule (Colace 13:15 Fall Risk Precautions JANINA 08/19/[address] 13:08 Complete Blood Count LAB 08/20/24 Verified 04:00 Comprehensive LAB 08/20/24 Verified Metabolic Panel 04:00 Pt Request For Service PT 08/19/24 Logged 13:08 Condition: Serious JANINA 08/19/24 In Process 13:08 Acetaminophen Tablet PHA 08/19/24 Logged (Tylenol Tablet) 13:15 Amlodipine Tablet PHA 08/20/24 Logged (Norvasc Tablet) 10:00 (Nf) Aspirin (Aspirin PHA 08/20/24 Logged Low Dose) 10:00 (Nf) Atorvastatin PHA 08/20/24 Logged Calcium 10:00 (Nf) Insulin Glargine PHA 08/19/24 Logged (Basaglar Kwikpen) 22:00 (Nf) Lisinopril PHA 08/20/24 Logged 10:00 Glucose Blood PHA 08/19/24 Logged (Accu-Chek Comfort 17:00 Insulin R (Human) PHA 08/19/24 Logged (Insulin R) 22:00 Insulin R (Human) PHA 08/19/24 Logged (Insulin R) 17:00 Dextrose 50% Syringe PHA 08/19/24 Logged 13:15 Date of Service: Aug 19, 2024 Billing Provider: MAGGIE STARK Common Visit Codes: [id number] INP/OBS CARE (MOD) MAGGIE STARK Aug 19, 2024 13:35
[2024-08-19] MEDS: InsuLIN REG 1unit/0.01ml Soln (100units/ml) SC SCH ×2 (16:25→21:37)
[2024-08-19] MEDS: ACCU-CHEK COMFORT CURVE STRIP VI SCH (17:29)
[2024-08-19 19:32] VITALS: PULSE 51; RESP 16; O2SAT 97
[2024-08-19] MEDS: cloNIDine HCL 0.1 MG TAB PO ONE (21:13)
[2024-08-19] MEDS: MEROPENEM 1GM IVPB 50 ML IV SCH (21:50)
[2024-08-19] MEDS: Insulin Glargine (Basaglar Kwikpen) SC SCH (22:40)
[2024-08-19] MEDS: INSULIN LANTUS (GLARGINE) 1 /0.01ml (100units/ml) SC ONE (22:44)
[2024-08-19 23:57] VITALS: BP 123/61; PULSE 44; RESP 20; TEMP 98; O2SAT 98
[2024-08-20] VITALS (8 sets, daily range): BP systolic 112–151; BP diastolic 61–87; PULSE 44–53; RESP 16–20; TEMP 97.6–98.6; O2SAT 96–98
[2024-08-20 06:06] LABS: Basophils # (auto) 0.1 10 ^3/uL (0-0.2); Basophils % (auto) 0.9 % (0.0-2.0); Eosinophils # (auto) 0.2 10 ^3/uL (0-0.8); Hematocrit 32.7 % (36.0-46.0); Lymphocytes # (auto) 3.6 10 ^3/uL (0.4-5.4); Lymphocytes % (auto) 47.1 % (10.0-50.0); Mean Corpuscular Hemoglobin 29.8 pg (28.0-32.0); Mean Corpuscular Hgb Conc. 33.8 g/dL (32.0-36.0); Mean Corpuscular Volume 88.1 fL (80.0-100.0); Monocytes # (auto) 0.6 10 ^3/uL (0-1.3); Monocytes % (auto) 7.7 % (0.0-12.0); Neutrophils # (auto) 3.1 10 ^3/uL (1.6-8.6); Neutrophils % (auto) 41.3 % (37.0-80.0); Nucleated Red Blood Cells % 0.1 %; Platelet Count (auto) 201 10^3/uL (140-450); Red Blood Cells 3.71 10^6/uL (4.0-5.20); Red Cell Distribution Width 14.1 % (11.8-14.3); White Blood Cell 7.5 10^3/uL (4.4-10.8)
[2024-08-20 06:33] LABS: Alanine Aminotransferase < 9 U/L (7-40); Albumin 3.4 g/dL (3.2-4.8); Alkaline Phosphatase 71 U/L (46-116); Anion Gap 8 (5-15); Aspartate Aminotransferase 12 U/L (<34); BUN/Creatinine Ratio 13.6 (10.0-20.0); Bilirubin, Total 0.3 mg/dL (0.2-1.0); Blood Urea Nitrogen 24 mg/dL (9-23); Calcium 9.3 mg/dL (8.7-10.4); Carbon Dioxide 25 mmol/L (20-31); Chloride 109 mmol/L (98-107); Glucose 69 mg/dL (74-106); Potassium 4.2 mmol/L (3.5-5.1); Sodium 142 mmol/L (136-145); Total Protein 6.1 g/dL (5.7-8.2)
--- NOTE | 2024-08-20 07:06 | ECG ---
[facility] Test Date: 2024-08-19 Test Time: 08:00:26 Pat Name: OTTO MCCABE Department: ED Room: 0233 A Gender: F Independent Driver: TI : 1950 Requested By: EMERGENCY EMERGENCY Order Number: [id number] Reading MD: Lee Kc Measurements Intervals [place] Rate: 46 P: 0 MI: 308 QRS: -8 QRSD: 96 T: -11 QT: 464 QTc: 406 Interpretive Statements Sinus bradycardia Low voltage, precordial leads Posterior infarct, old Borderline T abnormalities, inferior leads Electronically Signed On 08-22-2024 19:57:16 PDT by Lee Kc Please click the below link to view image of tracing.
[2024-08-20] MEDS ORDERED: PATIENTS OWN MEDICATION (Lisinopril 1 TAB) PO SCH (10:00)
[2024-08-20] MEDS: ASPirin 81 mg TAB PO SCH (10:14)
[2024-08-20] MEDS: ATORVASTATIN 20 MG TAB PO SCH (10:16)
[2024-08-20] MEDS: LISINOPRIL 20 MG TAB PO SCH (10:16)
[2024-08-20] MEDS: amLODIPine BESYLATE 5 MG TAB PO SCH (10:17)
[2024-08-20] MEDS: HYDROcodone-ACET 5/325MG TAB PO PRN (11:10)
--- NOTE | 2024-08-20 13:39 | DVHPN2 ---
Reviewed: Care Plan, H&P, Labs, Medications, Previous Orders, Radiology Changes from previous H/P or p: No Changes Eyes: No Pain, No Vision change, No Conjunctivae inflammation, No Eyelid inflammation, No Other, No Redness ENT: No Ear pain, No Ear discharge, No Nose pain, No Nose discharge, No Nose congestion, No Mouth pain, No Mouth swelling, No Throat pain, No Throat swelling, No Other Cardiovascular: No Chest Pain, No Palpitations, No Orthopnea, No Paroxysmal Noc. Dyspnea, No Edema, No Lt Headedness, No Other Respiratory: No Cough, No Dry, No Shortness of breath, No SOB with excertion, No Wheezing, No Hemoptysis, No Pleuritic Pain, No Sputum, No Other Gastrointestinal: No Nausea, No Vomiting, No Abdominal Pain, No Diarrhea, No Constipation, No Melena, No Hematochezia, No Other Genitourinary: No Dysuria, No Frequency, No Incontinence, No Hematuria, No Retention, No Other Musculoskeletal: No other, No neck pain, No shoulder pain, No arm pain, No back pain, No hand pain, No leg pain, No foot pain Skin: No Rash, No Lesions, No Jaundice, No Bruising, No Other Objective Vitals Vital Signs Date Time Temp Pulse Resp B/P (MAP) Pulse Ox O2 Delivery O2 Flow Rate FiO2 08/20/24 12:35 98.1 49 19 151/67 (95) 96 98.1 08/20/24 08:00 Room Air* 0 21 Intake/Output Intake and Output 08/20/24 07:00 Intake Total 1010 ml Balance 1010 ml Intake Oral 400 ml IV Total 610 ml # Voids 2 Medications Current Medications Medications Dose Ordered Sig/Solis Route Start Time Stop Time Status Last Admin Dose Admin Acetaminophen/ Hydrocodone Bitart 1 tab Q4HP PRN PO 08/19/24 13:15 08/20/24 11:10 1 TAB Ondansetron HCl 4 mg Q4HP PRN IV 08/19/24 13:15 Docusate Sodium 100 mg BIDPRN PRN PO 08/19/24 13:15 Acetaminophen 650 mg Q6HP PRN PO 08/19/24 13:15 Amlodipine Besylate 5 mg DAILY PO 08/20/24 10:00 08/20/24 10:17 5 MG Aspirin 81 mg DAILY PO 08/20/24 10:00 08/20/24 10:14 81 MG Atorvastatin Calcium 40 mg DAILY PO 08/20/24 10:00 08/20/24 10:16 40 MG Patient Own Medication 27 units HS SC 08/19/24 22:00 Patient Own Medication 1 tab DAILY PO 08/20/24 10:00 UNV Diagnostic Test (Pha) 1 strip ACHS 08/19/24 17:00 08/20/24 11:13 1 STRIP Insulin Human Regular HS SC 08/19/24 22:00 Insulin Human Regular AC SC 08/19/24 17:00 Dextrose 50 ml UD PRN IV 08/19/24 13:15 Meropenem 50 ml @ 17 mls/hr Q12HR IV 08/19/24 22:00 08/20/24 10:14 17 MLS/HR Lisinopril 40 mg DAILY PO 08/20/24 10:00 08/20/24 10:16 40 MG Laboratory Results Laboratory Tests 08/20/24 05:09 Chemistry Test 08/20/24 05:09 Albumin 3.4 g/dL (3.2-4.8) Calcium Level 9.3 mg/dL (8.7-10.4) Total Protein 6.1 g/dL (5.7-8.2) LFT Test 08/20/24 05:09 Alanine Aminotransferase (ALT) < 9 U/L (7-40) Alkaline Phosphatase 71 U/L (46-116) Aspartate Amino Transferase (AST) 12 U/L (<34) Total Bilirubin 0.3 mg/dL (0.2-1.0) Urinalysis Test 08/19/24 08:35 Urine Color Colorless (Yellow) Urine Clarity Clear (Clear) Urine pH 6.0 (5.0-9.0) Urine Specific [place] 1.008 (1.001-1.035) Urine Protein Negative (Negative) Urine Ketones Negative (Negative) Urine Blood Negative /uL (Negative) Urine Nitrite Negative (Negative) Urine Bilirubin Negative (Negative) Urine Urobilinogen Normal mg/dL (Negative) Urine Leukocyte Esterase 3+ /uL (Negative) Urine RBC 2 /hpf (0 - 4) Urine Microscopic WBC 92 /HPF (0-5) H Urine Squamous Epithelial Cells Few /hpf (<5) Urine Bacteria Few /hpf (None Seen) H Urine Glucose Normal mg/dL (Normal) Microbiology Microbiology Date/Time Source Procedure Growth Status 08/19/24 08:35 Urine - [place] Urine Culture - Preliminary Resulted Labs and/or images reviewed: Labs reviewed by me, Image(s) reviewed by me Assessment/Plan Assessment/Plan Sepsis secondary to urinary tract infection: Urine cultures growing possible E faecalis, start Zyvox 600 mg IV q.12 hrs Sick sinus syndrome and symptomatic bradycardia: Patient refused pacemaker placement during the previous visit 10 days ago Paroxysmal atrial fibrillation IDDM HTN CAD s/p JODIE History of smoking HLD Hx of CVA Subcm lung nodule Bladder mass JAKE on CKD 3 deconditioning Possible depression and agitation: Tele psych consult placed but patient refused to participate during the last visit Intractable neck and back pain secondary to cervical spinal stenosis and lumbar spinal stenosis: Consult for Dr. Frederick appreciated, advised conservative management and physical therapy and pain management Time spent 75 minutes Advanced care planning time 20 minutes Patient is full code , Plan discussed with: Patient Date of Service: Aug 20, 2024 Billing Provider: JOHN BUTLER MD Common Visit Codes: [id number] CARE 30-74 MIN JOHN BUTLER MD Aug 20, 2024 13:39
[2024-08-20] MEDS: ACETAMINOPHEN 325 MG TAB PO PRN (14:17)
[2024-08-20] MEDS: LINEZOLID 600MG/300ML 300 ML IV SCH (14:18)
[2024-08-21] VITALS (8 sets, daily range): BP systolic 118–150; BP diastolic 54–95; PULSE 50–73; RESP 16–19; TEMP 97.2–98.4; O2SAT 95–100
--- NOTE | 2024-08-21 10:35 | DVHPN2 ---
Reviewed: Care Plan, H&P, Labs, Medications, Previous Orders, Radiology Changes from previous H/P or p: No Changes Eyes: No Pain, No Vision change, No Conjunctivae inflammation, No Eyelid inflammation, No Other, No Redness ENT: No Ear pain, No Ear discharge, No Nose pain, No Nose discharge, No Nose congestion, No Mouth pain, No Mouth swelling, No Throat pain, No Throat swelling, No Other Cardiovascular: No Chest Pain, No Palpitations, No Orthopnea, No Paroxysmal Noc. Dyspnea, No Edema, No Lt Headedness, No Other Respiratory: No Cough, No Dry, No Shortness of breath, No SOB with excertion, No Wheezing, No Hemoptysis, No Pleuritic Pain, No Sputum, No Other Gastrointestinal: No Nausea, No Vomiting, No Abdominal Pain, No Diarrhea, No Constipation, No Melena, No Hematochezia, No Other Genitourinary: No Dysuria, No Frequency, No Incontinence, No Hematuria, No Retention, No Other Musculoskeletal: No other, No neck pain, No shoulder pain, No arm pain, No back pain, No hand pain, No leg pain, No foot pain Skin: No Rash, No Lesions, No Jaundice, No Bruising, No Other Objective Vitals Vital Signs Date Time Temp Pulse Resp B/P (MAP) Pulse Ox O2 Delivery O2 Flow Rate FiO2 08/21/24 09:08 123/60 08/21/24 09:00 97.2 73 18 100 97.2 08/21/24 07:58 Room Air* 0 21 Intake/Output Intake and Output 08/21/24 07:00 Intake Total 1740 ml Balance 1740 ml Intake Oral 1040 ml IV Total 700 ml # Voids 9 # Bowel Movements 1 Medications Current Medications Medications Dose Ordered Sig/Solis Route Start Time Stop Time Status Last Admin Dose Admin Acetaminophen/ Hydrocodone Bitart 1 tab Q4HP PRN PO 08/19/24 13:15 08/20/24 11:10 1 TAB Ondansetron HCl 4 mg Q4HP PRN IV 08/19/24 13:15 Docusate Sodium 100 mg BIDPRN PRN PO 08/19/24 13:15 Acetaminophen 650 mg Q6HP PRN PO 08/19/24 13:15 08/20/24 14:17 650 MG Amlodipine Besylate 5 mg DAILY PO 08/20/24 10:00 08/21/24 09:08 5 MG Aspirin 81 mg DAILY PO 08/20/24 10:00 08/21/24 09:07 81 MG Atorvastatin Calcium 40 mg DAILY PO 08/20/24 10:00 08/21/24 09:07 40 MG Patient Own Medication 27 units HS SC 08/19/24 22:00 Patient Own Medication 1 tab DAILY PO 08/20/24 10:00 UNV Diagnostic Test (Pha) 1 strip ACHS 08/19/24 17:00 08/21/24 06:28 1 STRIP Insulin Human Regular HS SC 08/19/24 22:00 Insulin Human Regular AC SC 08/19/24 17:00 Dextrose 50 ml UD PRN IV 08/19/24 13:15 Meropenem 50 ml @ 17 mls/hr Q12HR IV 08/19/24 22:00 08/20/24 21:13 17 MLS/HR Lisinopril 40 mg DAILY PO 08/20/24 10:00 08/21/24 09:08 40 MG Linezolid 300 ml @ 150 mls/hr Q12HR IV 08/20/24 14:00 08/21/24 09:05 150 MLS/HR Laboratory Results Laboratory Tests 08/20/24 05:09 Urinalysis Test 08/19/24 08:35 Urine Color Colorless (Yellow) Urine Clarity Clear (Clear) Urine pH 6.0 (5.0-9.0) Urine Specific [place] 1.008 (1.001-1.035) Urine Protein Negative (Negative) Urine Ketones Negative (Negative) Urine Blood Negative /uL (Negative) Urine Nitrite Negative (Negative) Urine Bilirubin Negative (Negative) Urine Urobilinogen Normal mg/dL (Negative) Urine Leukocyte Esterase 3+ /uL (Negative) Urine RBC 2 /hpf (0 - 4) Urine Microscopic WBC 92 /HPF (0-5) H Urine Squamous Epithelial Cells Few /hpf (<5) Urine Bacteria Few /hpf (None Seen) H Urine Glucose Normal mg/dL (Normal) Microbiology Microbiology Date/Time Source Procedure Growth Status 08/20/24 07:09 Nose MRSA Screen - Final Complete 08/19/24 08:35 Urine - [place] Urine Culture - Preliminary Resulted Labs and/or images reviewed: Labs reviewed by me, Image(s) reviewed by me Assessment/Plan Assessment/Plan Sepsis secondary to urinary tract infection: Urine cultures growing possible E faecalis, start Zyvox 600 mg IV q.12 hrs Sick sinus syndrome and symptomatic bradycardia: Patient refused pacemaker placement during the previous visit 10 days ago Paroxysmal atrial fibrillation IDDM HTN CAD s/p JODIE History of smoking HLD Hx of CVA Subcm lung nodule Bladder mass JAKE on CKD 3 deconditioning Possible depression and agitation: Tele psych consult placed but patient refused to participate during the last visit Intractable neck and back pain secondary to cervical spinal stenosis and lumbar spinal stenosis: Consult for Dr. Frederick appreciated, advised conservative management and physical therapy and pain management Time spent 55 minutes Advanced care planning time 20 minutes Patient is full code , Plan discussed with: Patient My Orders Orders - JOHN BUTLER MD Procedure Category Date Status Time Linezolid 600mg/300ml PHA 08/20/24 In Process (Zyvox) 14:00 OJHN BUTLER MD Aug 21, 2024 10:35
--- NOTE | 2024-08-21 10:39 | DVHPN2 ---
Reviewed: Care Plan, H&P, Labs, Medications, Previous Orders, Radiology Changes from previous H/P or p: No Changes Eyes: No Pain, No Vision change, No Conjunctivae inflammation, No Eyelid inflammation, No Other, No Redness ENT: No Ear pain, No Ear discharge, No Nose pain, No Nose discharge, No Nose congestion, No Mouth pain, No Mouth swelling, No Throat pain, No Throat swelling, No Other Cardiovascular: No Chest Pain, No Palpitations, No Orthopnea, No Paroxysmal Noc. Dyspnea, No Edema, No Lt Headedness, No Other Respiratory: No Cough, No Dry, No Shortness of breath, No SOB with excertion, No Wheezing, No Hemoptysis, No Pleuritic Pain, No Sputum, No Other Gastrointestinal: No Nausea, No Vomiting, No Abdominal Pain, No Diarrhea, No Constipation, No Melena, No Hematochezia, No Other Genitourinary: No Dysuria, No Frequency, No Incontinence, No Hematuria, No Retention, No Other Musculoskeletal: No other, No neck pain, No shoulder pain, No arm pain, No back pain, No hand pain, No leg pain, No foot pain Skin: No Rash, No Lesions, No Jaundice, No Bruising, No Other Objective Vitals Vital Signs Date Time Temp Pulse Resp B/P (MAP) Pulse Ox O2 Delivery O2 Flow Rate FiO2 08/21/24 09:08 123/60 08/21/24 09:00 97.2 73 18 100 97.2 08/21/24 07:58 Room Air* 0 21 Intake/Output Intake and Output 08/21/24 07:00 Intake Total 1740 ml Balance 1740 ml Intake Oral 1040 ml IV Total 700 ml # Voids 9 # Bowel Movements 1 Medications Current Medications Medications Dose Ordered Sig/Solis Route Start Time Stop Time Status Last Admin Dose Admin Acetaminophen/ Hydrocodone Bitart 1 tab Q4HP PRN PO 08/19/24 13:15 08/20/24 11:10 1 TAB Ondansetron HCl 4 mg Q4HP PRN IV 08/19/24 13:15 Docusate Sodium 100 mg BIDPRN PRN PO 08/19/24 13:15 Acetaminophen 650 mg Q6HP PRN PO 08/19/24 13:15 08/20/24 14:17 650 MG Amlodipine Besylate 5 mg DAILY PO 08/20/24 10:00 08/21/24 09:08 5 MG Aspirin 81 mg DAILY PO 08/20/24 10:00 08/21/24 09:07 81 MG Atorvastatin Calcium 40 mg DAILY PO 08/20/24 10:00 08/21/24 09:07 40 MG Patient Own Medication 27 units HS SC 08/19/24 22:00 Patient Own Medication 1 tab DAILY PO 08/20/24 10:00 UNV Diagnostic Test (Pha) 1 strip ACHS 08/19/24 17:00 08/21/24 06:28 1 STRIP Insulin Human Regular HS SC 08/19/24 22:00 Insulin Human Regular AC SC 08/19/24 17:00 Dextrose 50 ml UD PRN IV 08/19/24 13:15 Meropenem 50 ml @ 17 mls/hr Q12HR IV 08/19/24 22:00 08/20/24 21:13 17 MLS/HR Lisinopril 40 mg DAILY PO 08/20/24 10:00 08/21/24 09:08 40 MG Linezolid 300 ml @ 150 mls/hr Q12HR IV 08/20/24 14:00 08/21/24 09:05 150 MLS/HR Laboratory Results Laboratory Tests 08/20/24 05:09 Urinalysis Test 08/19/24 08:35 Urine Color Colorless (Yellow) Urine Clarity Clear (Clear) Urine pH 6.0 (5.0-9.0) Urine Specific [place] 1.008 (1.001-1.035) Urine Protein Negative (Negative) Urine Ketones Negative (Negative) Urine Blood Negative /uL (Negative) Urine Nitrite Negative (Negative) Urine Bilirubin Negative (Negative) Urine Urobilinogen Normal mg/dL (Negative) Urine Leukocyte Esterase 3+ /uL (Negative) Urine RBC 2 /hpf (0 - 4) Urine Microscopic WBC 92 /HPF (0-5) H Urine Squamous Epithelial Cells Few /hpf (<5) Urine Bacteria Few /hpf (None Seen) H Urine Glucose Normal mg/dL (Normal) Microbiology Microbiology Date/Time Source Procedure Growth Status 08/20/24 07:09 Nose MRSA Screen - Final Complete 08/19/24 08:35 Urine - [place] Urine Culture - Preliminary Resulted Labs and/or images reviewed: Labs reviewed by me, Image(s) reviewed by me Assessment/Plan Assessment/Plan Sepsis secondary to urinary tract infection: Urine cultures growing possible E faecalis, start Zyvox 600 mg IV q.12 hrs Sick sinus syndrome and symptomatic bradycardia: Patient refused pacemaker placement during the previous visit 10 days ago Paroxysmal atrial fibrillation IDDM HTN CAD s/p JODIE History of smoking HLD Hx of CVA Subcm lung nodule Bladder mass JAKE on CKD 3 deconditioning Possible depression and agitation: Tele psych consult placed but patient refused to participate during the last visit Intractable neck and back pain secondary to cervical spinal stenosis and lumbar spinal stenosis: Consult for Dr. Frederick appreciated, advised conservative management and physical therapy and pain management Frequent visits Noncompliance Time spent 55 minutes Advanced care planning time 20 minutes Patient is full code Family conference at 8:00 a.m. Saturday at bedside Plan discussed with: Patient My Orders Orders - JOHN BUTLER MD Procedure Category Date Status Time Linezolid 600mg/300ml PHA 08/20/24 In Process (Zyvox) 14:00 Date of Service: Aug 21, 2024 Billing Provider: JOHN BUTLER MD Common Visit Codes: [id number] INP/OBS CARE(HIGH) JOHN BUTLER MD Aug 21, 2024 10:39
[2024-08-22] VITALS (7 sets, daily range): BP systolic 137–156; BP diastolic 64–95; PULSE 45–82; RESP 14–18; TEMP 97.8–98.4; O2SAT 90–100
--- NOTE | 2024-08-22 09:39 | DVHPN2 ---
Reviewed: Care Plan, H&P, Labs, Medications, Previous Orders, Radiology Changes from previous H/P or p: No Changes Eyes: No Pain, No Vision change, No Conjunctivae inflammation, No Eyelid inflammation, No Other, No Redness ENT: No Ear pain, No Ear discharge, No Nose pain, No Nose discharge, No Nose congestion, No Mouth pain, No Mouth swelling, No Throat pain, No Throat swelling, No Other Cardiovascular: No Chest Pain, No Palpitations, No Orthopnea, No Paroxysmal Noc. Dyspnea, No Edema, No Lt Headedness, No Other Respiratory: No Cough, No Dry, No Shortness of breath, No SOB with excertion, No Wheezing, No Hemoptysis, No Pleuritic Pain, No Sputum, No Other Gastrointestinal: No Nausea, No Vomiting, No Abdominal Pain, No Diarrhea, No Constipation, No Melena, No Hematochezia, No Other Genitourinary: No Dysuria, No Frequency, No Incontinence, No Hematuria, No Retention, No Other Musculoskeletal: No other, No neck pain, No shoulder pain, No arm pain, No back pain, No hand pain, No leg pain, No foot pain Skin: No Rash, No Lesions, No Jaundice, No Bruising, No Other Objective Vitals Vital Signs Date Time Temp Pulse Resp B/P (MAP) Pulse Ox O2 Delivery O2 Flow Rate FiO2 08/22/24 05:00 97.8 55 18 137/76 (96) 100 97.8 08/21/24 20:00 Room Air* 0 21 Intake/Output Intake and Output 08/22/24 07:00 Intake Total 800 ml Output Total 325 ml Balance 475 ml Intake Oral 450 ml IV Total 350 ml Output Urine Total 325 ml # Voids 3 Medications Current Medications Medications Dose Ordered Sig/Solis Route Start Time Stop Time Status Last Admin Dose Admin Acetaminophen/ Hydrocodone Bitart 1 tab Q4HP PRN PO 08/19/24 13:15 08/22/24 01:38 1 TAB Ondansetron HCl 4 mg Q4HP PRN IV 08/19/24 13:15 Docusate Sodium 100 mg BIDPRN PRN PO 08/19/24 13:15 Acetaminophen 650 mg Q6HP PRN PO 08/19/24 13:15 08/20/24 14:17 650 MG Amlodipine Besylate 5 mg DAILY PO 08/20/24 10:00 08/21/24 09:08 5 MG Aspirin 81 mg DAILY PO 08/20/24 10:00 08/21/24 09:07 81 MG Atorvastatin Calcium 40 mg DAILY PO 08/20/24 10:00 08/21/24 09:07 40 MG Patient Own Medication 27 units HS SC 08/19/24 22:00 Patient Own Medication 1 tab DAILY PO 08/20/24 10:00 UNV Diagnostic Test (Pha) 1 strip ACHS 08/19/24 17:00 08/22/24 06:15 1 STRIP Insulin Human Regular HS SC 08/19/24 22:00 Insulin Human Regular AC SC 08/19/24 17:00 08/21/24 11:21 3 UNITS Dextrose 50 ml UD PRN IV 08/19/24 13:15 Meropenem 50 ml @ 17 mls/hr Q12HR IV 08/19/24 22:00 08/21/24 11:12 17 MLS/HR Lisinopril 40 mg DAILY PO 08/20/24 10:00 08/21/24 09:08 40 MG Linezolid 300 ml @ 150 mls/hr Q12HR IV 08/20/24 14:00 08/22/24 09:13 150 MLS/HR Laboratory Results Laboratory Tests 08/20/24 05:09 Urinalysis Test 08/19/24 08:35 Urine Color Colorless (Yellow) Urine Clarity Clear (Clear) Urine pH 6.0 (5.0-9.0) Urine Specific [place] 1.008 (1.001-1.035) Urine Protein Negative (Negative) Urine Ketones Negative (Negative) Urine Blood Negative /uL (Negative) Urine Nitrite Negative (Negative) Urine Bilirubin Negative (Negative) Urine Urobilinogen Normal mg/dL (Negative) Urine Leukocyte Esterase 3+ /uL (Negative) Urine RBC 2 /hpf (0 - 4) Urine Microscopic WBC 92 /HPF (0-5) H Urine Squamous Epithelial Cells Few /hpf (<5) Urine Bacteria Few /hpf (None Seen) H Urine Glucose Normal mg/dL (Normal) Microbiology Microbiology Date/Time Source Procedure Growth Status 08/20/24 07:09 Nose MRSA Screen - Final Complete 08/19/24 08:35 Urine - [place] Urine Culture - Final Enterococcus faecalis Complete Labs and/or images reviewed: Labs reviewed by me, Image(s) reviewed by me Assessment/Plan Assessment/Plan Sepsis secondary to urinary tract infection: Urine cultures growing E faecalis, start Zyvox 600 mg IV q.12 hrs Sick sinus syndrome and symptomatic bradycardia: Patient refused pacemaker placement during the previous visit 10 days ago Paroxysmal atrial fibrillation IDDM HTN CAD s/p JODIE History of smoking HLD Hx of CVA Subcm lung nodule Bladder mass JAKE on CKD 3 deconditioning Possible depression and agitation: Tele psych consult placed but patient refused to participate during the last visit Intractable neck and back pain secondary to cervical spinal stenosis and lumbar spinal stenosis: Consult for Dr. Frederick appreciated, advised conservative management and physical therapy and pain management Frequent visits Noncompliance Time spent 55 minutes Advanced care planning time 20 minutes Patient is full code Discussed with the patient's daughter Izabela [phone] She does not want prison facility placement and requesting patient to be discharged home on home health for IV antibiotics for two weeks Plan discussed with: Patient My Orders Orders - JOHN BUTLER MD Procedure Category Date Status Time * Driver Sales CONS 08/22/24 Transmitted Consult Date of Service: Aug 22, 2024 Billing Provider: JOHN BUTLER MD Common Visit Codes: [id number] INP/OBS CARE(HIGH) JOHN BUTLER MD Aug 22, 2024 09:39
[2024-08-23 01:00] VITALS: BP 127/66; PULSE 62; RESP 18; TEMP 97.2; O2SAT 95
[2024-08-23 08:00] VITALS: PULSE 67; RESP 14; O2SAT 99
[2024-08-23 08:30] VITALS: BP 153/73; PULSE 59; RESP 18; TEMP 98.1; O2SAT 99
[2024-08-23] MEDS: DOCUSATE SOD 100 MG CAP PO PRN (09:29)
--- NOTE | 2024-08-23 09:43 | DVHPN2 ---
Reviewed: Care Plan, H&P, Labs, Medications, Previous Orders, Radiology Changes from previous H/P or p: No Changes Eyes: No Pain, No Vision change, No Conjunctivae inflammation, No Eyelid inflammation, No Other, No Redness ENT: No Ear pain, No Ear discharge, No Nose pain, No Nose discharge, No Nose congestion, No Mouth pain, No Mouth swelling, No Throat pain, No Throat swelling, No Other Cardiovascular: No Chest Pain, No Palpitations, No Orthopnea, No Paroxysmal Noc. Dyspnea, No Edema, No Lt Headedness, No Other Respiratory: No Cough, No Dry, No Shortness of breath, No SOB with excertion, No Wheezing, No Hemoptysis, No Pleuritic Pain, No Sputum, No Other Gastrointestinal: No Nausea, No Vomiting, No Abdominal Pain, No Diarrhea, No Constipation, No Melena, No Hematochezia, No Other Genitourinary: No Dysuria, No Frequency, No Incontinence, No Hematuria, No Retention, No Other Musculoskeletal: No other, No neck pain, No shoulder pain, No arm pain, No back pain, No hand pain, No leg pain, No foot pain Skin: No Rash, No Lesions, No Jaundice, No Bruising, No Other Objective Vitals Vital Signs Date Time Temp Pulse Resp B/P (MAP) Pulse Ox O2 Delivery O2 Flow Rate FiO2 08/23/24 09:38 153/73 08/23/24 01:00 97.2 62 18 95 97.2 08/22/24 20:00 Room Air* 0 21 Intake/Output Intake and Output 08/23/24 07:00 Intake Total 1250 ml Balance 1250 ml Intake Oral 400 ml IV Total 850 ml # Voids 9 # Bowel Movements 1 Medications Current Medications Medications Dose Ordered Sig/[place]olis Route Start Time Stop Time Status Last Admin Dose Admin Acetaminophen/ Hydrocodone Bitart 1 tab Q4HP PRN PO 08/19/24 13:15 08/23/24 09:29 1 TAB Ondansetron HCl 4 mg Q4HP PRN IV 08/19/24 13:15 Docusate Sodium 100 mg BIDPRN PRN PO 08/19/24 13:15 08/23/24 09:29 100 MG Acetaminophen 650 mg Q6HP PRN PO 08/19/24 13:15 08/20/24 14:17 650 MG Amlodipine Besylate 5 mg DAILY PO 08/20/24 10:00 08/23/24 09:38 5 MG Aspirin 81 mg DAILY PO 08/20/24 10:00 08/23/24 09:31 81 MG Atorvastatin Calcium 40 mg DAILY PO 08/20/24 10:00 08/23/24 09:29 40 MG Patient Own Medication 27 units HS SC 08/19/24 22:00 Patient Own Medication 1 tab DAILY PO 08/20/24 10:00 UNV Diagnostic Test (Pha) 1 strip ACHS 08/19/24 17:00 08/23/24 06:29 1 STRIP Insulin Human Regular HS SC 08/19/24 22:00 Insulin Human Regular AC SC 08/19/24 17:00 08/21/24 11:21 3 UNITS Dextrose 50 ml UD PRN IV 08/19/24 13:15 Meropenem 50 ml @ 17 mls/hr Q12HR IV 08/19/24 22:00 08/23/24 09:31 17 MLS/HR Lisinopril 40 mg DAILY PO 08/20/24 10:00 08/23/24 09:31 40 MG Linezolid 300 ml @ 150 mls/hr Q12HR IV 08/20/24 14:00 08/23/24 09:25 150 MLS/HR Laboratory Results Laboratory Tests 08/20/24 05:09 Urinalysis Test 08/19/24 08:35 Urine Color Colorless (Yellow) Urine Clarity Clear (Clear) Urine pH 6.0 (5.0-9.0) Urine Specific [place] 1.008 (1.001-1.035) Urine Protein Negative (Negative) Urine Ketones Negative (Negative) Urine Blood Negative /uL (Negative) Urine Nitrite Negative (Negative) Urine Bilirubin Negative (Negative) Urine Urobilinogen Normal mg/dL (Negative) Urine Leukocyte Esterase 3+ /uL (Negative) Urine RBC 2 /hpf (0 - 4) Urine Microscopic WBC 92 /HPF (0-5) H Urine Squamous Epithelial Cells Few /hpf (<5) Urine Bacteria Few /hpf (None Seen) H Urine Glucose Normal mg/dL (Normal) Microbiology Microbiology Date/Time Source Procedure Growth Status 08/20/24 07:09 Nose MRSA Screen - Final Complete 08/19/24 08:35 Urine - [place] Urine Culture - Final Enterococcus faecalis Complete Labs and/or images reviewed: Labs reviewed by me, Image(s) reviewed by me Assessment/Plan Assessment/Plan Sepsis secondary to urinary tract infection: Urine cultures growing E faecalis, start Zyvox 600 mg IV q.12 hrs Sick sinus syndrome and symptomatic bradycardia: Patient refused pacemaker placement during the previous visit 10 days ago Paroxysmal atrial fibrillation IDDM HTN CAD s/p JODIE History of smoking HLD Hx of CVA Subcm lung nodule Bladder mass JAKE on CKD 3 deconditioning Possible depression and agitation: Tele psych consult placed but patient refused to participate during the last visit Intractable neck and back pain secondary to cervical spinal stenosis and lumbar spinal stenosis: Consult for Dr. Frederick appreciated, advised conservative management and physical therapy and pain management Frequent visits Noncompliance Time spent 55 minutes Advanced care planning time 20 minutes Patient is full code Discussed with the patient's daughter Izabela [phone] She does not want longterm facility placement and requesting patient to be discharged home on home health for IV antibiotics for two weeks Will DC Saturday Plan discussed with: Patient My Orders Orders - JOHN BUTLER MD Procedure Category Date Status Time Insert Midline ORDERS 08/22/24 Transmitted 10:01 Communication Order ORDERS 08/22/24 Transmitted 10:01 Date of Service: Aug 23, 2024 Billing Provider: JOHN BUTLER MD Common Visit Codes: [id number] INP/OBS CARE(HIGH) JOHN BUTLER MD Aug 23, 2024 09:43
[2024-08-23 12:30] VITALS: BP 153/77; PULSE 62; RESP 14; TEMP 98.3; O2SAT 99
[2024-08-23 16:30] VITALS: BP 143/70; PULSE 61; RESP 16; TEMP 98.8; O2SAT 99
[2024-08-23 21:00] VITALS: PULSE 61; RESP 18; TEMP 97.9; O2SAT 92
[2024-08-24 01:00] VITALS: BP 148/76; PULSE 55; RESP 18; TEMP 98.1; O2SAT 96
[2024-08-24 08:00] VITALS: PULSE 67; RESP 18; O2SAT 97
[2024-08-24 09:29] VITALS: BP 133/84; PULSE 67; RESP 18; TEMP 97.5; O2SAT 97
--- NOTE | 2024-08-24 10:59 | DVHDS2 ---
Discharge Summary Date of Admission Aug 19, 2024 at 13:08 Date of Discharge: Aug 24, 2024 Admitting Diagnosis Generalized weakness Wounds: None Labs/Diagnostic Data: Laboratory Results Test 08/24/24 05:48 08/20/24 05:09 08/19/24 13:18 08/19/24 08:35 POC Glucose 79 mg/dl (70-106) White Blood Count 7.5 10^3/uL (4.4-10.8) Red Blood Count 3.71 10^6/uL (4.0-5.20) Hemoglobin 11.0 g/dL (12.2-16.2) Hematocrit 32.7 % (36.0-46.0) Mean Corpuscular Volume 88.1 fL (80.0-100.0) Mean Corpuscular Hemoglobin 29.8 pg (28.0-32.0) Mean Corpuscular Hemoglobin Concent 33.8 g/dL (32.0-36.0) Red Cell Distribution Width 14.1 % (11.8-14.3) Platelet Count 201 10^3/uL (140-450) Mean Platelet Volume 9.2 fL (6.9-10.8) Neutrophils (%) (Auto) 41.3 % (37.0-80.0) Lymphocytes (%) (Auto) 47.1 % (10.0-50.0) Monocytes (%) (Auto) 7.7 % (0.0-12.0) Eosinophils (%) (Auto) 3.0 % (0.0-7.0) Basophils (%) (Auto) 0.9 % (0.0-2.0) Neutrophils # (Auto) 3.1 10 ^3/uL (1.6-8.6) Lymphocytes # (Auto) 3.6 10 ^3/uL (0.4-5.4) Monocytes # (Auto) 0.6 10 ^3/uL (0-1.3) Eosinophils # (Auto) 0.2 10 ^3/uL (0-0.8) Basophils # (Auto) 0.1 10 ^3/uL (0-0.2) Nucleated Red Blood Cells 0.1 % Sodium Level 142 mmol/L (136-145) Potassium Level 4.2 mmol/L (3.5-5.1) Chloride Level 109 mmol/L (98-107) Carbon Dioxide Level 25 mmol/L (20-31) Anion Gap 8 (5-15) Blood Urea Nitrogen 24 mg/dL (9-23) Creatinine 1.76 mg/dL (0.550-1.02) Glomerular Filtration Rate Calc 30 mL/min (>90) BUN/Creatinine Ratio 13.6 (10.0-20.0) Serum Glucose 69 mg/dL (74-106) Calcium Level 9.3 mg/dL (8.7-10.4) Total Bilirubin 0.3 mg/dL (0.2-1.0) Aspartate Amino Transferase (AST) 12 U/L (<34) Alanine Aminotransferase (ALT) < 9 U/L (7-40) Alkaline Phosphatase 71 U/L (46-116) Total Protein 6.1 g/dL (5.7-8.2) Albumin 3.4 g/dL (3.2-4.8) Lactic Acid Level 0.8 mmol/L (0.4-2.0) Urine Color Colorless (Yellow) Urine Clarity Clear (Clear) Urine pH 6.0 (5.0-9.0) Urine Specific [place] 1.008 (1.001-1.035) Urine Protein Negative (Negative) Urine Ketones Negative (Negative) Urine Blood Negative /uL (Negative) Urine Nitrite Negative (Negative) Urine Bilirubin Negative (Negative) Urine Urobilinogen Normal mg/dL (Negative) Urine Leukocyte Esterase 3+ /uL (Negative) Urine RBC 2 /hpf (0 - 4) Urine Microscopic WBC 92 /HPF (0-5) Urine Squamous Epithelial Cells Few /hpf (<5) Urine Bacteria Few /hpf (None Seen) Urine Glucose Normal mg/dL (Normal) Test 08/19/24 07:34 Troponin I High Sensitivity 19 ng/L (</=34) Other Laboratory Tests 08/20/24 05:09 Brief Hx & Hospital Course: 73-year-old female with a history of hypertension diabetes coronary artery disease status post stents smoking hypercholesterolemia history of CVA bladder mass AK on CKD deconditioning depression agitation recent discharged from this hospital came in for generalized weakness found to have sepsis secondary to urinary tract infection urine cultures growing E faecalis started on Zyvox 600 mg IV q.12h also had sick sinus syndrome and symptomatic bradycardia patient refused pacemaker placement during the previous visit 10 days ago. Patient has been noncompliant throughout the hospital stay removal of the IVs and midline. Daughter at the bedside. Patient being discharged home on Zyvox 600 mg p.o. b.i.d. for two weeks for complicated UTI Consults/Reason for consult None Operations or Procedures None Condition at Discharge: Fair Final Diagnosis/Problems List Sepsis secondary to urinary tract infection: Urine cultures growing E faecalis, start Zyvox 600 mg IV q.12 hrs Sick sinus syndrome and symptomatic bradycardia: Patient refused pacemaker placement during the previous visit 10 days ago Paroxysmal atrial fibrillation IDDM HTN CAD s/p JODIE History of smoking HLD Hx of CVA Subcm lung nodule Bladder mass JAKE on CKD 3 deconditioning Possible depression and agitation: Tele psych consult placed but patient refused to participate during the last visit Intractable neck and back pain secondary to cervical spinal stenosis and lumbar spinal stenosis: Consult for Dr. Otoniel lloyd, advised conservative management and physical therapy and pain management Frequent visits Noncompliance Discharge Disposition: Home with Health Services Discharge Instruct/Medications Diet: Cardiac 2g Na,low cholest Activity: Light activity Follow Up/Referral: Follow up with the primary Dr Bettencourt all previous home meds Medications: Zyvox 600 mg IV q.12h for two weeks 39 (Time taken for discharge summary 39 minutes) Discharge Statement: "Patient was advised to return to the ER or call 911 if any headaches, dizziness, shortness of breath, chest pain, abdominal pain, bleeding, fevers, or worsening of medical condition. Patient was counseled about treatment plan, medications, possible side effects, patientverbalized understanding. All questions were answered to the best of my ability. This discharge took greater then 30 minutes in planning, reviewing documentation, counseling the patient, and discussing with other team members." ASSESSMENT ASSESSMENT Hospital Course Marginal improvement Assessment Sepsis secondary to urinary tract infection: Urine cultures growing E faecalis, start Zyvox 600 mg IV q.12 hrs Sick sinus syndrome and symptomatic bradycardia: Patient refused pacemaker placement during the previous visit 10 days ago Paroxysmal atrial fibrillation IDDM HTN CAD s/p JODIE History of smoking HLD Hx of CVA Subcm lung nodule Bladder mass JAKE on CKD 3 deconditioning Possible depression and agitation: Tele psych consult placed but patient refused to participate during the last visit Intractable neck and back pain secondary to cervical spinal stenosis and lumbar spinal stenosis: Consult for Dr. Otoniel lloyd, advised conservative management and physical therapy and pain management Frequent visits Noncompliance Date of Service: Aug 24, 2024 Billing Provider: JOHN BUTLER MD Common Visit Codes: 82876-KOA/OBS DISCH DAY >30min JOHN BUTLER MD Aug 24, 2024 10:59
[2024-08-24] MEDS ORDERED: LINE1TAB6 PO (11:00)
[2024-08-24 11:35] VITALS: BP 133/84; PULSE 67; RESP 20; TEMP 98.4
== END 2024-08-24 12:30 | disposition home health service (06) | DRG 872 ==
LOC: EDBD 06:35 → ER 06:35 → OVERFLOW 13:08 → EAST 23:47
PROVIDERS: ADMIT Family Medicine; ATTEND Family Medicine
PROC: 05HD33Z Insertion of Infusion Device into Right Cephalic Vein, Percutaneous Approach (ICD-10-PCS; principal; 2024-08-22)
PROC: B54MZZA Ultrasonography of Right Upper Extremity Veins, Guidance (ICD-10-PCS; 2024-08-22)
DX: A41.89 Other specified sepsis (principal); N39.0 Urinary tract infection, site not specified; N17.9 Acute kidney failure, unspecified; G89.29 Other chronic pain; I25.10 Atherosclerotic heart disease of native coronary artery without angina pectoris; I48.0 Paroxysmal atrial fibrillation; M48.02 Spinal stenosis, cervical region; N18.30 Chronic kidney disease, stage 3 unspecified; N32.9 Bladder disorder, unspecified; E11.22 Type 2 diabetes mellitus with diabetic chronic kidney disease; F03.90 Unspecified dementia, unspecified severity, without behavioral disturbance, psychotic disturbance, mood disturbance, and anxiety; F32.A Depression, unspecified; R91.1 Solitary pulmonary nodule; I12.9 Hypertensive chronic kidney disease with stage 1 through stage 4 chronic kidney disease, or unspecified chronic kidney disease; M48.061 Spinal stenosis, lumbar region without neurogenic claudication; E78.00 Pure hypercholesterolemia, unspecified; Z88.0 Allergy status to penicillin; Z79.4 Long term (current) use of insulin; Z79.82 Long term (current) use of aspirin; Z79.899 Other long term (current) drug therapy; Z86.73 Personal history of transient ischemic attack (TIA), and cerebral infarction without residual deficits; Z91.199 Patient's noncompliance with other medical treatment and regimen due to unspecified reason; Z95.5 Presence of coronary angioplasty implant and graft; Z87.891 Personal history of nicotine dependence; I49.5 Sick sinus syndrome
CPT/HCPCS: 36415; 71045; 80048; 80053; 81001; 82962; 83605; 84484; 85025; 87081; 87086; 87088; 87186; 93005; 96361; 96365; 97110; 97116; 97163; 97530; 99291; 99292; G0378; J1815; J2185; J3490; J7060

== ENCOUNTER 2024-09-23 23:37 | Inpatient (IN) | payer OTHER, MEDICAID ==
[~2024-09-23] VITALS: Ht 162.6 cm; Wt 79.6 kg
[~2024-09-23 23:37] MED LIST changes: -BACDST PO; -LEVO500T91 PO
--- NOTE | 2024-09-24 00:09 | ED.PDOC ---
General HPI Comments 73 year old female presents to the ED via EMS with a chief complaint of bilateral flank pain onset 1 month. Patient states she began experiencing bilateral flank pain about 1 month ago. Patient was discharged from [facility] on 08/24/24 was diagnosed with sepsis secondary to UTI, was discharged with antibiotics. She states pain has not improved, urine has foul odor. PMHx CKF, [place], HTN, HLD, DM, arthritis, seizure, frequent UTI, CVA, dementia. Denies fever, chills, dysuria, hematuria, melena, abdominal pain, hematemesis, nausea, vomiting, constipation, diarrhea, chest pain,shortness of breath. No other associated symptoms, modifiers, recent injuries or sick contacts present at this time. Chief Complaint: Flank Pain Time Seen by MD: 00:00 Primary Care Provider: UNKNOWN Reviewed notes: Medications, Allergies Allergies: Coded Allergies: Ceftriaxone (Verified Allergy, Unknown, 09/24/24) Penicillins (Verified Allergy, Unknown, 03/16/24) Home Meds Active Scripts Cefdinir (Cefdinir) 300 Mg Cap, 1 CAP PO BID for 10 Days, #20 CAP Prov:JULIO ADDISON MD 09/24/24 Linezolid (Zyvox) 600 Mg Tab, 600 MG PO BID, #28 TAB Prov:JOHN BUTLER MD 08/24/24 Reported Medications Insulin Glargine (Basaglar Kwikpen) 100 Unit/Ml Inj, 27 UNITS SC HS 03/16/24 Metoprolol Succinate (Metoprolol Succinate Er) 25 Mg Tab, 1 TAB PO DAILY 03/16/24 Amlodipine Besylate (Amlodipine Besylate) 5 Mg Tab, 1 TAB PO DAILY 03/16/24 Aspirin (Aspirin Low Dose) 81 Mg Chw, 1 TAB PO DAILY 03/16/24 Atorvastatin Calcium (ATORVASTATIN CALCIUM) 80 Mg Tab, 40 MG PO DAILY 03/16/24 Lisinopril (Lisinopril) 40 Mg Tab, 1 TAB PO DAILY 03/16/24 Information Source: Patient, Emergency Med Personnel Mode of Arrival: EMS Severity: Moderate Timing: Months Duration: Since onset Prehospital treatment: None Onset: Spontaneous Symptoms: Other History of: UTI Location: (R) Flank, (L)Flank Modifying factors: None associated signs and symptoms: Flank Pain, Other Past Medical History PAST MEDICAL HISTORY: Arthritis, CKF, CVA, Dementia, DM, High Lipids, HTN, [place], Seizures, UTI'S Surgical History: Denies all surgeries POLYMERIZATION ENGINEER History: No Pertinent POLYMERIZATION ENGINEER History Family History Family History: Reviewed,noncontributory to illness, Unknown Social History Smoker: Non-Smoker, Unknown Alcohol: Denies ETOH Use, Unknown Drugs: Denies Drug Use, Unknown Lives In: Home Constitutional: denies: chills, diaphoresis, fatigue, fever, malaise, sweats, weakness, others EENTM: denies: blurred vision, double vision, ear bleeding, ear discharge, ear drainage, ear pain, ear ringing, eye pain, eye redness, hearing loss, mouth pain, mouth swelling, nasal discharge, nose bleeding, nose congestion, nose pain, photophobia, tearing, throat pain, throat swelling, voice changes, others Respiratory: denies: cough, hemoptysis, orthopnea, SOB at rest, shortness of breath, SOB with excertion, stridor, wheezing, others Cardiovascular: denies: chest pain, dizzy spells, diaphoresis, Dyspnea on exertion, edema, irregular heart beat, left arm pain, lightheadedness, palpitations, PND, syncope, others Gastrointestinal: denies: abdomen distended, abdominal pain, blood streaked bowels, constipated, diarrhea, dysphagia, difficulty swallowing, hematemesis, melena, nausea, poor appetite, poor fluid intake, rectal bleeding, rectal pain, vomiting, others Genitourinary: reports: flank pain, others (Foul odor urine); denies: abnormal vagina bleeding, burning, dyspareunia, dysuria, frequency, hematuria, incontinence, pain, , vagina discharge, urgency Neurological: denies: dizziness, fainting, headache, left sided numbness, left sided weakness, numbness, paresthesia, pre-existing deficit, right sided numbness, right sided weakness, seizure, speech problems, tingling, tremors, weakness, others Musculoskeletal: denies: back pain, gout, joint pain, joint swelling, muscle pain, muscle stiffness, neck pain, others Integumetry: denies: bruises, change in color, change in hair/nails, dryness, laceration, lesions, lumps, rash, wounds, others Allergic/Immunocompromised: denies: Difficulty Healing, Frequent Infections, Hives, Itching, others Hematologic/Lymphatic: denies: anemia, blood clots, easy bleeding, easy bruising, swollen glands, others Endocrine: denies: excessive hunger, excessive sweating, excessive thirst, excessive urination, flushing, intolerance to cold, intolerance to heat, unexplained weight gain, unexplained weight loss, others Psychiatric: denies: anxiety, bipolar disorder, depression, hopeless, panic disorder, schizophrenia, sleepless, suicidal, others All Other Systems: Reviewed and Negative Physical Exam General Appearance: Normal HEENT: Normal ENT Inspection, Pharynx Normal, TMs Normal Neck: Full Range of Motion, Non-Tender, Normal, Normal Inspection Respiratory: Chest Non-Tender, Lungs Clear, No Accessory Muscle Use, No Respiratory Distress, Normal Breath Sounds Cardiovascular: No Edema, No JVD, No Murmur, No Gallop, Normal Peripheral Pulses, Regular Rate/Rhythm Breast Exam: Deferred Gastrointestinal: No Organomegaly, Non Tender, No Pulsatile Mass, Normal Bowel Sounds, Soft Genitalia: Deferred Pelvic: Deferred Rectal: Deferred Extremities: No calf tenderness, Normal capillary refill, Normal inspection, Normal range of motion, Non-tender, No pedal edema Musculoskeletal : Apperance: Normal Neurologic: Alert, industrial safety engineer II-XII nml as Tested, No Motor Deficits, Normal Affect, Normal Mood, No Sensory Deficits Cerebellar Function: Normal Reflexes: Normal Skin: Dry, Normal Color, Warm Lymphatic: No Adenopathy Was a procedure done? Was a procedure done?: No Differential Diagnosis Kidney stone (Female): Bowel obstruction, Musculoskeletal pain, Pyelonephritis, Renal failure, Urolithiasis, Other Kidney stone (Male): Bowel obstruction, Pancreatitis X-Ray, Labs, Meds, VS Vital Signs Date Time Temp Pulse Resp B/P (MAP) Pulse Ox O2 Delivery O2 Flow Rate FiO2 09/23/24 23:43 100.1 81 16 101/86 97 100.1 Lab Test 09/24/24 02:26 09/24/24 00:26 Range/Units Urine Color Colorless Yellow Urine Clarity Turbid H Clear Urine pH 6.5 5.0-9.0 Urine Specific Hamer 1.007 1.001-1.035 Urine Protein 2+ H Negative Urine Ketones Negative Negative Urine Blood 2+ H Negative /uL Urine Nitrite Negative Negative Urine Bilirubin Negative Negative Urine Urobilinogen Normal Negative mg/dL Urine Leukocyte Esterase 3+ Negative /uL Urine RBC 14 0 - 4 /hpf Urine WBC Clumps Present None Seen /hpf Urine Microscopic WBC 880 H 0-5 /HPF Urine Squamous Epithelial Cells Few <5 /hpf Urine Bacteria None seen None Seen /hpf Urine Hyaline Casts Few 0 - 2 /lpf Urine Glucose Normal Normal mg/dL White Blood Count 9.7 4.4-10.8 10^3/uL Red Blood Count 4.10 4.0-5.20 10^6/uL Hemoglobin 12.5 12.2-16.2 g/dL Hematocrit 36.1 36.0-46.0 % Mean Corpuscular Volume 87.9 80.0-100.0 fL Mean Corpuscular Hemoglobin 30.5 28.0-32.0 pg Mean Corpuscular Hemoglobin Concent 34.7 32.0-36.0 g/dL Red Cell Distribution Width 14.3 11.8-14.3 % Platelet Count 289 140-450 10^3/uL Mean Platelet Volume 8.9 6.9-10.8 fL Neutrophils (%) (Auto) 62.8 37.0-80.0 % Lymphocytes (%) (Auto) 28.1 10.0-50.0 % Monocytes (%) (Auto) 6.8 0.0-12.0 % Eosinophils (%) (Auto) 1.3 0.0-7.0 % Basophils (%) (Auto) 1.0 0.0-2.0 % Neutrophils # (Auto) 6.1 1.6-8.6 10 ^3/uL Lymphocytes # (Auto) 2.7 0.4-5.4 10 ^3/uL Monocytes # (Auto) 0.7 0-1.3 10 ^3/uL Eosinophils # (Auto) 0.1 0-0.8 10 ^3/uL Basophils # (Auto) 0.1 0-0.2 10 ^3/uL Nucleated Red Blood Cells 0.0 % Sodium Level 139 136-145 mmol/L Potassium Level 4.1 3.5-5.1 mmol/L Chloride Level 106 98-107 mmol/L Carbon Dioxide Level 25 20-31 mmol/L Anion Gap 8 5-15 Blood Urea Nitrogen 21 9-23 mg/dL Creatinine 1.61 H 0.550-1.02 mg/dL Glomerular Filtration Rate Calc 33 >90 mL/min BUN/Creatinine Ratio 13.0 10.0-20.0 Serum Glucose 118 H 74-106 mg/dL Lactic Acid Level 1.0 0.4-2.0 mmol/L Calcium Level 8.7 8.7-10.4 mg/dL Total Bilirubin 0.3 0.2-1.0 mg/dL Aspartate Amino Transferase (AST) 15 13-40 U/L Alanine Aminotransferase (ALT) < 9 7-40 U/L Alkaline Phosphatase 105 46-116 U/L Total Protein 7.4 5.7-8.2 g/dL Albumin 4.1 3.2-4.8 g/dL Lipase 39 12-53 U/L Current Medications Medications (Trade) Dose Ordered Sig/Solis Route Start Time Stop Time Status Last Admin Sodium Chloride 1,000 ml @ 1,000 mls/hr Q1H ONCE IVB 09/24/24 00:15 09/24/24 01:14 DC 09/24/24 01:41 [place] [id number] Ph: [phone] DIAGNOSTIC IMAGING Diagnostic Imaging Report : [id number] Signed PATIENT: OTTO MCCABE ACCT: [id number] UNIT: [id number] : 1950 LOC: ER ROOM / BED: / AGE / SEX: 73 / F ADM STATUS: REG ER SERVICE 0005 ORDERING PHYSICIAN: JULIO ADDISON MD PROCEDURE(s): ABPL - CT AB PEL WO CON-NO ORAL OR IV REASON: flank pain ORDER NUMBER(s): [id number], ACCESSION NUMBER(s): [id number] Exam: CT CT AB PEL WO CON-NO ORAL OR IV History: flank pain Comparison Study: CT CT AB PEL WO CON-NO ORAL OR IV on DOS: 08/08/24, CT CT AB PEL WO CON-NO ORAL OR IV on DOS: 05/27/24, CT CT AB PEL WO CON-NO ORAL OR IV on DOS: 03/17/24 TECHNIQUE: Multidetector CT of the abdomen and pelvis was performed from lung bases to pubic symphysis. Imaging was performed without IV contrast. Axial, coronal, and sagittal multiplanar reformats were obtained from the axial data set by the technologist. RADIATION DOSE: CTDI vol 20.5 mGy. DLP 1181.29 mGy.cm Findings: Limited evaluation of the solid organs in the absence of IV contrast. Liver: Unremarkable. Spleen: Unremarkable. Pancreas: Unremarkable. Gallbladder: Unremarkable. Adrenals: Unremarkable Kidneys: Redemonstration of moderate to severe bilateral hydroureteronephrosis. There is stranding about the left kidney and left ureter. Pelvic Viscera: There is wall thickening of the urinary bladder with adjacent stranding. Vasculature: Mild atherosclerotic aortoiliac calcifications. Retroperitoneum: Shotty retroperitoneal nodes. Bowel: Colonic diverticulosis without CT evidence of diverticulitis. No bowel obstruction. Musculoskeletal: Unremarkable. Soft tissues: Unremarkable Lungs: Redemonstrated 7 mm right lower lobe pulmonary nodule. Impression: 1. Findings as above raising possibility of cystitis in the appropriate clinical setting. Redemonstration of moderate to severe bilateral hydroureteronephrosis. Left periureteral and perinephric stranding may reflect an infectious/inflammatory process in the appropriate clinical setting. 2. Unchanged additional findings as detailed. ATED BY: ALVINA KRUSE MD DICTATED DATE/TIME: 09/24/2448 SIGNED BY: ALVINA KRUSE MD SIGNED DATE/TIME: 09/24/2448 CC: Time of 1ST Reevaluation: 00:30 Reevaluation 1ST: Unchanged Patient Education/Counseling: Diagnosis, Treatment, Prognosis Family Education/Counseling: No Family Present Additional Information The following tests were ordered, and results were reviewed by me: CBC, UA, CMP, LIPASE, CT ABD PEL WO CONTRAST, BLOOD CULTURE, LA W/ REFLEX Additional Information was gathered from interviewing the following independent historians: EMS I reviewed and agreed with the following test results read by other providers: CT ABD PEL WO CONTRAST, I discussed treatment and results with medical personnel and: patient Comprehensive systems review obtained and negative except for what is stated in the HPI. SEPSIS Sepsis Screen Date sepsis recognized/suspect: Sep 23, 2024 Time Sepsis recognized/suspect: 2345 Recent Procedure: No On Antibiotic Therapy: No Respiratory Rate >20: No Heart Rate >90: No Temp<36 C (96.8 F) or >38.3 C: No SBP <90 or MAP <65 mmHG: No New Acute Mental Status Change: No Is the patient on CPAP, BIPAP,: No Physician Orders Ct Ab Pel Wo Con-No Oral Or Iv (09/24/24 00:05) Blood Culture (09/24/24 00:05) Straightcath If Unable To Void (09/24/24 01:04) Straight Cath. (09/24/24 ) Vital Signs Date Time Temp Pulse Resp B/P (MAP) Pulse Ox O2 Delivery O2 Flow Rate FiO2 09/23/24 23:43 100.1 81 16 101/86 97 100.1 Laboratory Tests Test 09/24/24 00:26 Lactic Acid Level 1.0 mmol/L (0.4-2.0) White Blood Count 9.7 10^3/uL (4.4-10.8) Medications Medications Dose Ordered Sig/Solis Route Start Time Stop Time Status Last Admin Dose Admin Sodium Chloride 1,000 ml @ 1,000 mls/hr Q1H ONCE IVB 09/24/24 00:15 09/24/24 01:14 DC 09/24/24 01:41 Departure 1 Departure Time of Disposition: 03:32 Impression: Primary Impression: Pyelonephritis Additional Impressions: Acute renal injury Type 2 diabetes mellitus with diabetic nephropathy Disposition: ADMITTED INPATIENT Admit to: Med Surg Condition: Guarded e-Prescriptions Cefdinir (Cefdinir) 300 Mg Cap 1 CAP PO BID for 10 Days, #20 CAP Prov: JULIO ADDISON MD 09/24/24 Comments Bilateral Flank Pain with Hydronephrosis and Acute Kidney Injury Chief Complaint: Bilateral flank pain and malaise for one month History of Present Illness: Patient is a 73-year-old female with a history of recurrent UTIs and hydronephrosis who was hospitalized approximately one month ago for treatment. She presents today with bilateral flank pain and generalized malaise that has persisted for the past month. The patient reports that symptoms have been continuous since her previous hospitalization. She has a significant medical history including type 2 diabetes managed with insulin, hypertension, and hyperlipidemia. The patient appears to be in mild to moderate distress on presentation due to the flank pain. Review of Systems: Constitutional: Positive for malaise. Genitourinary: Positive for bilateral flank pain and CVA tenderness. All other systems: Deferred or negative. 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0 (normal) Urinalysis: - Leukocytes: 3+ - Blood: 2+ - Protein: 2+ Imaging and Other Relevant Results: CT Abdomen and Pelvis: - Bilateral hydronephrosis, unchanged from prior study - Etiology of hydronephrosis not clearly identified - Periureteral and perinephric stranding consistent with infectious process Medical Decision Making: Summary Statement: 73-year-old female with history of recurrent UTIs, hydronephrosis, type 2 diabetes, hypertension, and hyperlipidemia presenting with bilateral flank pain and malaise for one month. Workup reveals acute kidney injury, urinalysis consistent with infection, and CT showing bilateral hydronephrosis with inflammatory changes. Problem List: 1. Pyelonephritis 2. Bilateral hydronephrosis 3. Acute kidney injury 4. Type 2 diabetes mellitus 5. Hypertension 6. Hyperlipidemia Differential Diagnosis: Pyelonephritis, obstructive uropathy, nephrolithiasis, renal abscess, papillary necrosis, renal malignancy, interstitial nephritis, acute tubular necrosis. ED Course: Patient received IV fluid resuscitation and was administered IV Ceftriaxone (Rocephin) for empiric antibiotic coverage. Despite interventions, patient continued to be uncomfortable on reassessment. Given the clinical presentation, laboratory findings, and imaging results, the decision was made to admit the patient for further management of pyelonephritis with bilateral hydronephrosis and acute kidney injury. Assessment and Plan: 1. Pyelonephritis with Bilateral Hydronephrosis: - Admit to inpatient service for continued management - Continue IV Ceftriaxone pending urine culture results - IV fluid hydration - Pain management as needed - Urology consultation to evaluate persistent bilateral hydronephrosis and determine if intervention is needed 2. Acute Kidney Injury: - Likely multifactorial due to infection and possible obstructive uropathy - Monitor renal function with serial creatinine measurements - Maintain adequate hydration - Avoid nephrotoxic medications 3. Type 2 Diabetes Mellitus: - Continue home insulin with appropriate adjustments for inpatient setting - Monitor blood glucose levels regularly 4. Hypertension: - Continue home medications with appropriate adjustments - Monitor blood pressure 5. Hyperlipidemia: - Continue home medications Additional Notes: Patient admitted for pyelonephritis with bilateral hydronephrosis and acute kidney injury Billing Information: ICD-10: N10 - Acute pyelonephritis ICD-10: N13.6 - Pyonephrosis ICD-10: N13.30 - Unspecified hydronephrosis ICD-10: N17.9 - Acute kidney failure, unspecified ICD-10: E11.9 - Type 2 diabetes mellitus without complications ICD-10: I10 - Essential (primary) hypertension ICD-10: E78.5 - Hyperlipidemia, unspecified Critical Care Note Critical Care Time?: Yes (35 min-critical care time only) Critical care comment: Total critical care time: Approximately 36 minutes Due to a high probability of clinically significant, life threatening deter ioration, the patient required my highest level of preparedness to intervene emergently and I personally spent this critical care time directly and personally managing the patient. This critical care time included obtaining a history; examining the patient; pulse oximetry; ordering and review of studies; arranging urgent treatment with development of a management plan; evaluation of patient's response to treatment; frequent reassessment; and, discussions with other providers. This critical care time was performed to assess and manage the high probability of imminent, life-threatening deterioration that could result in multi-organ fa ilure. It was exclusive of separately billable procedures and treating other patients. Stability Stability form required: No Heart Score Heart Score: Heart Score Response (Comments) Value History N/A 0 EKG N/A 0 Age N/A 0 Risk Factors N/A 0 Troponin N/A 0 Total 0 I personally scribed for JULIO ADDISON MD ([email or web address]) on 09/24/24 at 00:09. Electronically submitted by Stefanie Alonso ([email or web address]). I personally scribed for JULIO ADDISON MD ([email or web address]) on 09/24/24 at 00:14. Electronically submitted by Stefanie Alonso ([email or web address]). I personally scribed for JULIO ADDISON MD ([email or web address]) on 09/24/24 at 00:58. Electronically submitted by Stefanie Alonso ([email or web address]). JULIO ADDISON MD Sep 24, 2024 00:09
--- NOTE | 2024-09-24 00:52 | DVH ---
Exam: CT CT AB PEL WO CON-NO ORAL OR IV History: flank pain Comparison Study: CT CT AB PEL WO CON-NO ORAL OR IV on DOS: 08/08/24, CT CT AB PEL WO CON-NO ORAL OR I V on DOS: 05/27/24, CT CT AB PEL WO CON-NO ORAL OR IV on DOS: 03/17/24 TECHNIQUE: Multidetector CT of the abdomen and pelvis was performed from lung bases to pubic symphysi s. Imaging was performed without IV contrast. Axial, coronal, and sagittal multiplanar reformats were obtained from the axial data set by the technologist. RADIATION DOSE: CTDI vol 20.5 mGy. DLP 1181.29 mGy.cm Findings: Limited evaluation of the solid organs in the absence of IV contrast. Liver: Unremarkable. Spleen: Unremarkable. Pancreas: Unremarkable. Gallbladder: Unremarkable. Adrenals: Unremarkable Kidneys: Redemonstration of moderate to severe bilateral hydroureteronephrosis. There is stranding ab out the left kidney and left ureter. Pelvic Viscera: There is wall thickening of the urinary bladder with adjacent stranding. Vasculature: Mild atherosclerotic aortoiliac calcifications. Retroperitoneum: Shotty retroperitoneal nodes. Bowel: Colonic diverticulosis without CT evidence of diverticulitis. No bowel obstruction. Musculoskeletal: Unremarkable. Soft tissues: Unremarkable Lungs: Redemonstrated 7 mm right lower lobe pulmonary nodule. Impression: 1. Findings as above raising possibility of cystitis in the appropriate clinical setting. Redemonstra tion of moderate to severe bilateral hydroureteronephrosis. Left periureteral and perinephric strand ing may reflect an infectious/inflammatory process in the appropriate clinical setting. 2. Unchanged additional findings as detailed.
[2024-09-24 00:55] LABS: Hematocrit 36.1 % (36.0-46.0); Hemoglobin 12.5 g/dL (12.2-16.2); Mean Corpuscular Hemoglobin 30.5 pg (28.0-32.0); Mean Corpuscular Volume 87.9 fL (80.0-100.0); Nucleated Red Blood Cells % 0.0 %
[2024-09-24 01:12] LABS: Albumin 4.1 g/dL (3.2-4.8); Alkaline Phosphatase 105 U/L (46-116); Anion Gap 8 (5-15); BUN/Creatinine Ratio 13.0 (10.0-20.0); Blood Urea Nitrogen 21 mg/dL (9-23); Calcium 8.7 mg/dL (8.7-10.4); Carbon Dioxide 25 mmol/L (20-31); Chloride 106 mmol/L (98-107); Lipase 39 U/L (12-53); Potassium 4.1 mmol/L (3.5-5.1); Sodium 139 mmol/L (136-145); Total Protein 7.4 g/dL (5.7-8.2)
[2024-09-24 01:13] LABS: Bilirubin, Total 0.3 mg/dL (0.2-1.0)
[2024-09-24 01:24] LABS: Alanine Aminotransferase < 9 U/L (7-40); Glucose 118 mg/dL (74-106)
[2024-09-24] MEDS: SODIUM CHLORIDE 0.9% 1,000 ML IVB ONE (01:41)
[2024-09-24] MEDS ORDERED: CEFD300C2 PO (01:53)
[2024-09-24] MEDS ORDERED: cefTRIAXone SOD 1,000 MG VL IV ONE (02:00)
[2024-09-24 03:06] LABS: Urine Protein, UAD 2+ (Negative); Urine WBC Clumps PRESENT /hpf (None Seen)
[2024-09-24] MEDS: cefTRIAXone 2GM/50ML D5W 50 ML IV ONE (03:49)
[2024-09-24 04:00] VITALS: RESP 18
[2024-09-24] MEDS ORDERED: ONDANSETRON HCL 4 MG/2 ML VIAL IV PRN (04:00)
[2024-09-24] MEDS ORDERED: DEXTROSE (50%) 50ML SYRG IV PRN (04:00)
--- NOTE | 2024-09-24 04:20 | DVHHP2 ---
History of Present Illness Reason for Visit: Flank pain History of Present Illness 73-year-old female presents for evaluation of bilateral flank pain. Patient reports symptoms ongoing for the past one month. She states that over the past one-week they have exacerbated. Reports bilateral flank pain and recently reports foul order urine. Denies dysuria or hematuria. Also for the past two days she has been having fever. No abdominal pain, nausea or vomiting. Past Medical History Chronic kidney disease, CVA, diabetes mellitus, dyslipidemia, hypertension, mi, seizures Past Surgical History Noncontributory Smoke: No ALCOHOL: none Drugs: None Lives: with Family Review of Systems Review of Systems Review of systems are currently negative otherwise addressed in HPI. Allergies: Coded Allergies: Penicillins (Verified Allergy, Unknown, 03/16/24) Medications Current Medications Medications Dose Ordered Sig/Solis Route Start Time Stop Time Status Last Admin Dose Admin Ceftriaxone Sodium 50 ml @ 100 mls/hr Q24H IV 09/24/24 21:00 Amlodipine Besylate 5 mg DAILY PO 09/24/24 10:00 Atorvastatin Calcium 40 mg HS PO 09/24/24 22:00 Aspirin 81 mg DAILY PO 09/24/24 10:00 Diagnostic Test (Pha) 1 strip ACHS 09/24/24 07:00 Insulin Human Regular ACHS SC 09/24/24 07:00 Dextrose 50 ml UD PRN IV 09/24/24 04:00 Acetaminophen/ Hydrocodone Bitart 1 tab Q4HP PRN PO 09/24/24 04:00 Ondansetron HCl 4 mg Q4HP PRN IV 09/24/24 04:00 Acetaminophen 650 mg Q6HP PRN PO 09/24/24 04:00 Exam Vital Signs Vital Signs Date Time Temp Pulse Resp B/P (MAP) Pulse Ox O2 Delivery O2 Flow Rate FiO2 09/23/24 23:43 100.1 81 16 101/86 97 100.1 Exam Gen: 73-year-old female in mild distress, obese Skin: Warm, dry, normal color and texture, no rash. HEENT: Normocephalic atraumatic, mucous membranes moist and pink. Neck: Cervical and supraclavicular nodes normal without enlargement, trachea is midline, thyroid gland is normal without masses. Pulmonary: Clear to auscultation and percussion bilaterally. Cardiac: Regular rate and rhythm. No murmur Abdomen: Soft, bilateral CVA tenderness, nondistended, bowel sounds present all 4 quadrants, no guarding, no rigidity, no organomegaly. Extremities: No cyanosis, clubbing, no edema Neuro: Cranial nerves II through XII grossly intact, normal affect and speech, no focal motor deficits. Labs/Xrays ORDERING PHYSICIAN: JULIO ADDISON MD PROCEDURE(s): ABPL - CT AB PEL WO CON-NO ORAL OR IV REASON: flank pain ORDER NUMBER(s): [id number], ACCESSION NUMBER(s): [id number] Exam: CT CT AB PEL WO CON-NO ORAL OR IV History: flank pain Comparison Study: CT CT AB PEL WO CON-NO ORAL OR IV on DOS: 08/08/24, CT CT AB PEL WO CON-NO ORAL OR IV on DOS: 05/27/24, CT CT AB PEL WO CON-NO ORAL OR IV on DOS: 03/17/24 TECHNIQUE: Multidetector CT of the abdomen and pelvis was performed from lung bases to pubic symphysis. Imaging was performed without IV contrast. Axial, coronal, and sagittal multiplanar reformats were obtained from the axial data set by the technologist. RADIATION DOSE: CTDI vol 20.5 mGy. DLP 1181.29 mGy.cm Findings: Limited evaluation of the solid organs in the absence of IV contrast. Liver: Unremarkable. Spleen: Unremarkable. Pancreas: Unremarkable. Gallbladder: Unremarkable. Adrenals: Unremarkable Kidneys: Redemonstration of moderate to severe bilateral hydroureteronephrosis. There is stranding about the left kidney and left ureter. Pelvic Viscera: There is wall thickening of the urinary bladder with adjacent stranding. Vasculature: Mild atherosclerotic aortoiliac calcifications. Retroperitoneum: Shotty retroperitoneal nodes. Bowel: Colonic diverticulosis without CT evidence of diverticulitis. No bowel obstruction. Musculoskeletal: Unremarkable. Soft tissues: Unremarkable Lungs: Redemonstrated 7 mm right lower lobe pulmonary nodule. Impression: 1. Findings as above raising possibility of cystitis in the appropriate clinical setting. Redemonstration of moderate to severe bilateral hydroureteronephrosis. Left periureteral and perinephric stranding may reflect an infectious/inflammatory process in the appropriate clinical setting. 2. Unchanged additional findings as detailed. Labs Test 09/24/24 02:26 09/24/24 00:26 Range/Units Urine Color Colorless Yellow Urine Clarity Turbid H Clear Urine pH 6.5 5.0-9.0 Urine Specific [place] 1.007 1.001-1.035 Urine Protein 2+ H Negative Urine Ketones Negative Negative Urine Blood 2+ H Negative /uL Urine Nitrite Negative Negative Urine Bilirubin Negative Negative Urine Urobilinogen Normal Negative mg/dL Urine Leukocyte Esterase 3+ Negative /uL Urine RBC 14 0 - 4 /hpf Urine WBC Clumps Present None Seen /hpf Urine Microscopic WBC 880 H 0-5 /HPF Urine Squamous Epithelial Cells Few <5 /hpf Urine Bacteria None seen None Seen /hpf Urine Hyaline Casts Few 0 - 2 /lpf Urine Glucose Normal Normal mg/dL White Blood Count 9.7 4.4-10.8 10^3/uL Red Blood Count 4.10 4.0-5.20 10^6/uL Hemoglobin 12.5 12.2-16.2 g/dL Hematocrit 36.1 36.0-46.0 % Mean Corpuscular Volume 87.9 80.0-100.0 fL Mean Corpuscular Hemoglobin 30.5 28.0-32.0 pg Mean Corpuscular Hemoglobin Concent 34.7 32.0-36.0 g/dL Red Cell Distribution Width 14.3 11.8-14.3 % Platelet Count 289 140-450 10^3/uL Mean Platelet Volume 8.9 6.9-10.8 fL Neutrophils (%) (Auto) 62.8 37.0-80.0 % Lymphocytes (%) (Auto) 28.1 10.0-50.0 % Monocytes (%) (Auto) 6.8 0.0-12.0 % Eosinophils (%) (Auto) 1.3 0.0-7.0 % Basophils (%) (Auto) 1.0 0.0-2.0 % Neutrophils # (Auto) 6.1 1.6-8.6 10 ^3/uL Lymphocytes # (Auto) 2.7 0.4-5.4 10 ^3/uL Monocytes # (Auto) 0.7 0-1.3 10 ^3/uL Eosinophils # (Auto) 0.1 0-0.8 10 ^3/uL Basophils # (Auto) 0.1 0-0.2 10 ^3/uL Nucleated Red Blood Cells 0.0 % Sodium Level 139 136-145 mmol/L Potassium Level 4.1 3.5-5.1 mmol/L Chloride Level 106 98-107 mmol/L Carbon Dioxide Level 25 20-31 mmol/L Anion Gap 8 5-15 Blood Urea Nitrogen 21 9-23 mg/dL Creatinine 1.61 H 0.550-1.02 mg/dL Glomerular Filtration Rate Calc 33 >90 mL/min BUN/Creatinine Ratio 13.0 10.0-20.0 Serum Glucose 118 H 74-106 mg/dL Lactic Acid Level 1.0 0.4-2.0 mmol/L Calcium Level 8.7 8.7-10.4 mg/dL Total Bilirubin 0.3 0.2-1.0 mg/dL Aspartate Amino Transferase (AST) 15 13-40 U/L Alanine Aminotransferase (ALT) < 9 7-40 U/L Alkaline Phosphatase 105 46-116 U/L Total Protein 7.4 5.7-8.2 g/dL Albumin 4.1 3.2-4.8 g/dL Lipase 39 12-53 U/L SEPSIS Sepsis Screen Date sepsis recognized/suspect: Sep 23, 2024 Time Sepsis recognized/suspect: 2345 Recent Procedure: No On Antibiotic Therapy: No Respiratory Rate >20: No Heart Rate >90: No Temp<36 C (96.8 F) or >38.3 C: No SBP <90 or MAP <65 mmHG: No New Acute Mental Status Change: No Is the patient on CPAP, BIPAP,: No Physician Orders Ct Ab Pel Wo Con-No Oral Or Iv (09/24/24 00:05) Blood Culture (09/24/24 00:05) Straightcath If Unable To Void (09/24/24 01:04) Straight Cath. (09/24/24 ) Ceftriaxone 2gm/50ml D5w (Rocephin 2gm/5 (09/24/24 03:45) Urine Bacterial Culture (09/24/24 04:00) Ceftriaxone 1gm/50ml D5w (Rocephin) (09/24/24 21:00) Amlodipine Tablet (Norvasc Tablet) (09/24/24 10:00) Atorvastatin (Lipitor) (09/24/24 22:00) Aspirin Tablet (09/24/24 10:00) Basic Metabolic Panel (09/25/24 04:00) Glucose Blood (Accu-Chek Comfort Curve T (09/24/24 07:00) Insulin R (Human) (Insulin R) (09/24/24 07:00) Dextrose 50% Syringe (09/24/24 04:00) Admit (09/24/24 04:00) Renal Standard(2gna,3gk,Lopho) (09/24/24 Breakfast) Hydrocodone-Acet 5/325mg Tab ([place] 5/32 (09/24/24 04:00) Ondansetron Hcl (Zofran) (09/24/24 04:00) Complete Blood Count (09/25/24 04:00) Condition: Stable (09/24/24 04:00) Acetaminophen Tablet (Tylenol Tablet) (09/24/24 04:00) Bedrest With Bathroom Privileg (09/24/24 04:00) * Urology Consult (09/24/24 04:00) Vital Signs Date Time Temp Pulse Resp B/P (MAP) Pulse Ox O2 Delivery O2 Flow Rate FiO2 09/23/24 23:43 100.1 81 16 101/86 97 100.1 Laboratory Tests Test 09/24/24 00:26 Lactic Acid Level 1.0 mmol/L (0.4-2.0) White Blood Count 9.7 10^3/uL (4.4-10.8) Medications Medications Dose Ordered Sig/Solis Route Start Time Stop Time Status Last Admin Dose Admin Ceftriaxone Sodium/Dextrose 50 ml @ 50 mls/hr ONCE ONCE IV 09/24/24 03:45 09/24/24 04:44 09/24/24 03:49 50 MLS/HR Sodium Chloride 1,000 ml @ 1,000 mls/hr Q1H ONCE IVB 09/24/24 00:15 09/24/24 01:14 DC 09/24/24 01:41 1,000 MLS/HR Assessment/Plan Assessment/Plan Assessment Acute pyelonephritis Severe bilateral hydronephrosis Acute kidney injury Hypertension Diabetes mellitus Plan Admit the patient to [facility] to the hospitalist Urology consultation Pain management Rocephin Urine bacterial culture pending Resume home medications Continue treatment per orders Plan discussed with: Patient My Orders Orders - FERCHO GABRIEL Procedure Category Date Status Time Urine Bacterial ANISHA 09/24/24 Logged Culture 04:00 Ceftriaxone 1gm/50ml PHA 09/24/24 In Process D5w (Rocephin) 21:00 Amlodipine Tablet PHA 09/24/24 In Process (Norvasc Tablet) 10:00 Atorvastatin (Lipitor) PHA 09/24/24 In Process 22:00 Aspirin Tablet PHA 09/24/24 In Process 10:00 Basic Metabolic Panel LAB 09/25/24 Verified 04:00 Glucose Blood PHA 09/24/24 In Process (Accu-Chek Comfort 07:00 Insulin R (Human) PHA 09/24/24 In Process (Insulin R) 07:00 Dextrose 50% Syringe PHA 09/24/24 In Process 04:00 Admit ADMIT 09/24/24 Transmitted 04:00 Renal DIET 09/24/24 Transmitted Standard(2gna,3gk,Lopho) Breakfast Hydrocodone-Acet PHA 09/24/24 In Process 5/325mg Tab ([place] 04:00 Ondansetron Hcl PHA 09/24/24 In Process (Zofran) 04:00 Complete Blood Count LAB 09/25/24 Verified 04:00 Condition: Stable JANINA 09/24/24 In Process 04:00 Acetaminophen Tablet PHA 09/24/24 In Process (Tylenol Tablet) 04:00 Bedrest With Bathroom JANINA 09/24/24 In Process Privileg 04:00 * Urology Consult CONS 09/24/24 Transmitted 04:00 Date of Service: Sep 24, 2024 Billing Provider: FERCHO GABRIEL Common Visit Codes: [id number] INP/OBS CARE (MOD) FERCHO GABRIEL Sep 24, 2024 04:20
[2024-09-24] MEDS: ACCU-CHEK COMFORT CURVE STRIP VI SCH (06:29)
[2024-09-24] MEDS: InsuLIN REG 1unit/0.01ml Soln (100units/ml) SC SCH (06:33)
[2024-09-24 07:40] VITALS: PULSE 62; RESP 19; O2SAT 96
--- NOTE | 2024-09-24 09:42 | DVHINCON2 ---
Date of service: Sep 24, 2024 Referring Physician Hospitalist Reason for Consultation hydronephrosis History of Present Illness History Source: Patient, RN Notes, MD Notes, Old Records Exam Limitations: No limitations HPI 73 year old female presents to the ED via EMS with a chief complaint of bilateral flank pain. Patient was seen in march while inpatient and failed to follow up for outpt cystoscopy. Patient was discharged from [facility] on 08/24/24 was diagnosed with sepsis secondary to UTI, was discharged with antibiotics. She states pain has not improved, urine has foul odor. PMHx CKF, AR, HTN, HLD, DM, arthritis, seizure, frequent UTI, CVA, dementia. Denies fever, chills, dysuria, hematuria, melena, abdominal pain, hematemesis, nausea, vomiting, constipation, diarrhea, chest pain,shortness of breath. No other associated symptoms, modifiers, recent injuries or sick contacts present at this time. Home Meds Active Scripts Cefdinir (Cefdinir) 300 Mg Cap, 1 CAP PO BID for 10 Days, #20 CAP Prov:JULIO ADDISON MD 09/24/24 Linezolid (Zyvox) 600 Mg Tab, 600 MG PO BID, #28 TAB Prov:JOHN BUTLER MD 08/24/24 Reported Medications Insulin Glargine (Basaglar Kwikpen) 100 Unit/Ml Inj, 27 UNITS SC HS 03/16/24 Metoprolol Succinate (Metoprolol Succinate Er) 25 Mg Tab, 1 TAB PO DAILY 03/16/24 Amlodipine Besylate (Amlodipine Besylate) 5 Mg Tab, 1 TAB PO DAILY 03/16/24 Aspirin (Aspirin Low Dose) 81 Mg Chw, 1 TAB PO DAILY 03/16/24 Atorvastatin Calcium (ATORVASTATIN CALCIUM) 80 Mg Tab, 40 MG PO DAILY 03/16/24 Lisinopril (Lisinopril) 40 Mg Tab, 1 TAB PO DAILY 03/16/24 Past Medical History Renal/: UTI Patient Family History: FH: hepatic cirrhosis G8 FATHER, Review of Systems Gastrointestinal: Abdominal Pain Genitourinary: Frequency, Urgency, Pain H&P Exam Vital Signs Vital Signs Date Time Temp Pulse Resp B/P (MAP) Pulse Ox O2 Delivery O2 Flow Rate FiO2 09/24/24 08:01 51 09/24/24 07:40 19 96 Room Air* 0 21 09/24/24 07:40 98.1 156/45 82) 98.1 General Appeara: Well developed, Well nourished, Normal Appearance Neuro/Mental St: Alert, Oriented Appearance: Appropriate appearance, Appropriate insight Eye contact/ Speech: Cooperative, Good eye contact, Normal speech Skin Exam: Normal inspection, Normal color, Warm/dry Labs/Xrays [place] [id number] Ph: [phone] DIAGNOSTIC IMAGING Diagnostic Imaging Report : [id number] Signed PATIENT: OTTO MCCABE ACCT: [id number] UNIT: [id number] : 1950 LOC: ER ROOM / BED: / AGE / SEX: 73 / F ADM STATUS: REG ER SERVICE 0005 ORDERING PHYSICIAN: JULIO ADDISON MD PROCEDURE(s): ABPL - CT AB PEL WO CON-NO ORAL OR IV REASON: flank pain ORDER NUMBER(s): [id number], ACCESSION NUMBER(s): [id number] Exam: CT CT AB PEL WO CON-NO ORAL OR IV History: flank pain Comparison Study: CT CT AB PEL WO CON-NO ORAL OR IV on DOS: 08/08/24, CT CT AB PEL WO CON-NO ORAL OR IV on DOS: 05/27/24, CT CT AB PEL WO CON-NO ORAL OR IV on DOS: 03/17/24 TECHNIQUE: Multidetector CT of the abdomen and pelvis was performed from lung bases to pubic symphysis. Imaging was performed without IV contrast. Axial, coronal, and sagittal multiplanar reformats were obtained from the axial data set by the technologist. RADIATION DOSE: CTDI vol 20.5 mGy. DLP 1181.29 mGy.cm Findings: Limited evaluation of the solid organs in the absence of IV contrast. Liver: Unremarkable. Spleen: Unremarkable. Pancreas: Unremarkable. Gallbladder: Unremarkable. Adrenals: Unremarkable Kidneys: Redemonstration of moderate to severe bilateral hydroureteronephrosis. There is stranding about the left kidney and left ureter. Pelvic Viscera: There is wall thickening of the urinary bladder with adjacent stranding. Vasculature: Mild atherosclerotic aortoiliac calcifications. Retroperitoneum: Shotty retroperitoneal nodes. Bowel: Colonic diverticulosis without CT evidence of diverticulitis. No bowel obstruction. Musculoskeletal: Unremarkable. Soft tissues: Unremarkable Lungs: Redemonstrated 7 mm right lower lobe pulmonary nodule. Impression: 1. Findings as above raising possibility of cystitis in the appropriate clinical setting. Redemonstration of moderate to severe bilateral hydroureteronephrosis. Left periureteral and perinephric stranding may reflect an infectious/inflammatory process in the appropriate clinical setting. 2. Unchanged additional findings as detailed. ATED BY: ALVINA KRUSE MD DICTATED DATE/TIME: 09/24/2448 SIGNED BY: ALVINA KRUSE MD SIGNED DATE/TIME: 09/24/2448 CC: Labs Test 09/24/24 06:33 09/24/24 02:26 09/24/24 00:26 Range/Units POC Glucose 99 70-106 mg/dl Urine Color Colorless Yellow Urine Clarity Turbid H Clear Urine pH 6.5 5.0-9.0 Urine Specific [place] 1.007 1.001-1.035 Urine Protein 2+ H Negative Urine Ketones Negative Negative Urine Blood 2+ H Negative /uL Urine Nitrite Negative Negative Urine Bilirubin Negative Negative Urine Urobilinogen Normal Negative mg/dL Urine Leukocyte Esterase 3+ Negative /uL Urine RBC 14 0 - 4 /hpf Urine WBC Clumps Present None Seen /hpf Urine Microscopic WBC 880 H 0-5 /HPF Urine Squamous Epithelial Cells Few <5 /hpf Urine Bacteria None seen None Seen /hpf Urine Hyaline Casts Few 0 - 2 /lpf Urine Glucose Normal Normal mg/dL White Blood Count 9.7 4.4-10.8 10^3/uL Red Blood Count 4.10 4.0-5.20 10^6/uL Hemoglobin 12.5 12.2-16.2 g/dL Hematocrit 36.1 36.0-46.0 % Mean Corpuscular Volume 87.9 80.0-100.0 fL Mean Corpuscular Hemoglobin 30.5 28.0-32.0 pg Mean Corpuscular Hemoglobin Concent 34.7 32.0-36.0 g/dL Red Cell Distribution Width 14.3 11.8-14.3 % Platelet Count 289 140-450 10^3/uL Mean Platelet Volume 8.9 6.9-10.8 fL Neutrophils (%) (Auto) 62.8 37.0-80.0 % Lymphocytes (%) (Auto) 28.1 10.0-50.0 % Monocytes (%) (Auto) 6.8 0.0-12.0 % Eosinophils (%) (Auto) 1.3 0.0-7.0 % Basophils (%) (Auto) 1.0 0.0-2.0 % Neutrophils # (Auto) 6.1 1.6-8.6 10 ^3/uL Lymphocytes # (Auto) 2.7 0.4-5.4 10 ^3/uL Monocytes # (Auto) 0.7 0-1.3 10 ^3/uL Eosinophils # (Auto) 0.1 0-0.8 10 ^3/uL Basophils # (Auto) 0.1 0-0.2 10 ^3/uL Nucleated Red Blood Cells 0.0 % Sodium Level 139 136-145 mmol/L Potassium Level 4.1 3.5-5.1 mmol/L Chloride Level 106 98-107 mmol/L Carbon Dioxide Level 25 20-31 mmol/L Anion Gap 8 5-15 Blood Urea Nitrogen 21 9-23 mg/dL Creatinine 1.61 H 0.550-1.02 mg/dL Glomerular Filtration Rate Calc 33 >90 mL/min BUN/Creatinine Ratio 13.0 10.0-20.0 Serum Glucose 118 H 74-106 mg/dL Lactic Acid Level 1.0 0.4-2.0 mmol/L Calcium Level 8.7 8.7-10.4 mg/dL Total Bilirubin 0.3 0.2-1.0 mg/dL Aspartate Amino Transferase (AST) 15 13-40 U/L Alanine Aminotransferase (ALT) < 9 7-40 U/L Alkaline Phosphatase 105 46-116 U/L Total Protein 7.4 5.7-8.2 g/dL Albumin 4.1 3.2-4.8 g/dL Lipase 39 12-53 U/L Assessment/Plan Problem List: (1) Pyelonephritis (2) Type 2 diabetes mellitus with diabetic nephropathy (3) Hydronephrosis (4) Complicated UTI (urinary tract infection) (5) Bladder mass Plan nm renal scan wtih split function and lasix washout hughes urine culture cystoscopy with bilateral RPG, possible TURBT and possible stent placement TBA after confirmation of clearance of UTI Plan discussed with: Patient HOSSEINKAT SMITH Sep 24, 2024 09:42
--- NOTE | 2024-09-24 17:54 | DVHPN2 ---
Subjective Home assuming the care of the patient from today on breath. This is a follow up on bilateral hydronephrosis, left pyelonephritis, urinary bladder mass. 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 Medications Current Medications Medications Dose Ordered Sig/Solis Route Start Time Stop Time Status Last Admin Dose Admin Ceftriaxone Sodium 50 ml @ 100 mls/hr Q24H IV 09/24/24 21:00 Amlodipine Besylate 5 mg DAILY PO 09/24/24 10:00 09/24/24 10:38 5 MG Atorvastatin Calcium 40 mg HS PO 09/24/24 22:00 Aspirin 81 mg DAILY PO 09/24/24 10:00 09/24/24 10:39 81 MG Diagnostic Test (Pha) 1 strip ACHS 09/24/24 07:00 09/24/24 17:00 1 STRIP Insulin Human Regular ACHS SC 09/24/24 07:00 09/24/24 10:40 2 UNITS Dextrose 50 ml UD PRN IV 09/24/24 04:00 Acetaminophen/ Hydrocodone Bitart 1 tab Q4HP PRN PO 09/24/24 04:00 Ondansetron HCl 4 mg Q4HP PRN IV 09/24/24 04:00 Acetaminophen 650 mg Q6HP PRN PO 09/24/24 04:00 Laboratory Results Laboratory Tests 09/24/24 00:26 Chemistry Test 09/24/24 00:26 Albumin 4.1 g/dL (3.2-4.8) Calcium Level 8.7 mg/dL (8.7-10.4) Total Protein 7.4 g/dL (5.7-8.2) Lipid panel Test 09/24/24 00:26 Lipase 39 U/L (12-53) LFT Test 09/24/24 00:26 Alanine Aminotransferase (ALT) < 9 U/L (7-40) Alkaline Phosphatase 105 U/L (46-116) Aspartate Amino Transferase (AST) 15 U/L (13-40) Total Bilirubin 0.3 mg/dL (0.2-1.0) Urinalysis Test 09/24/24 02:26 Urine Color Colorless (Yellow) Urine Clarity Turbid (Clear) H Urine pH 6.5 (5.0-9.0) Urine Specific [place] 1.007 (1.001-1.035) Urine Protein 2+ (Negative) H Urine Ketones Negative (Negative) Urine Blood 2+ /uL (Negative) H Urine Nitrite Negative (Negative) Urine Bilirubin Negative (Negative) Urine Urobilinogen Normal mg/dL (Negative) Urine Leukocyte Esterase 3+ /uL (Negative) Urine RBC 14 /hpf (0 - 4) Urine WBC Clumps Present /hpf (None Seen) Urine Microscopic WBC 880 /HPF (0-5) H Urine Squamous Epithelial Cells Few /hpf (<5) Urine Bacteria None seen /hpf (None Seen) Urine Hyaline Casts Few /lpf (0 - 2) Urine Glucose Normal mg/dL (Normal) Assessment/Plan Assessment/Plan 73-year-old female with a known history of diabetes mellitus type 2 hypertension, history of CVA presented to the hospital with bilateral flank pain found to have nicotine 1. Bilateral obstructive uropathy 2. Bilateral hydronephrosis 3. Left perinephric stranding and left periureteral stranding likely inflammatory infectious 4. Urinary bladder mass 5. Hypertension 6. Noncompliance -continue antibiotics follow up Urology recommendations Plan discussed with: Patient Date of Service: Sep 24, 2024 Billing Provider: SALENA WALTERS MD Common Visit Codes: [id number] INP/OBS CARE(MOD) SALENA WALTERS MD Sep 24, 2024 17:54
[2024-09-24 21:30] VITALS: PULSE 59; RESP 14
[2024-09-24] MEDS: cefTRIAXone 1GM/50ML D5W 50 ML IV SCH (21:55)
[2024-09-24] MEDS: ACETAMINOPHEN 325 MG TAB PO PRN (21:56)
[2024-09-24] MEDS: ATORVASTATIN 20 MG TAB PO SCH (21:56)
[2024-09-25 04:24] LABS: Hematocrit 33.1 % (36.0-46.0); Hemoglobin 11.4 g/dL (12.2-16.2); Mean Corpuscular Hemoglobin 30.4 pg (28.0-32.0); Mean Corpuscular Volume 88.7 fL (80.0-100.0); Nucleated Red Blood Cells % 0.0 %
[2024-09-25 04:34] LABS: Anion Gap 9 (5-15); Carbon Dioxide 24 mmol/L (20-31); Chloride 106 mmol/L (98-107); Potassium 3.6 mmol/L (3.5-5.1); Sodium 139 mmol/L (136-145)
[2024-09-25 04:35] LABS: Calcium 9.2 mg/dL (8.7-10.4)
[2024-09-25 04:40] LABS: BUN/Creatinine Ratio 12.0 (10.0-20.0); Blood Urea Nitrogen 18 mg/dL (9-23)
[2024-09-25 04:42] LABS: Glucose 199 mg/dL (74-106)
[2024-09-25 04:49] VITALS: BP 163/59; PULSE 81; RESP 18; TEMP 98; O2SAT 97
[2024-09-25 06:00] VITALS: BP 140/56; PULSE 84; RESP 18; TEMP 98; O2SAT 97
[2024-09-25 07:40] VITALS: PULSE 54; RESP 16; O2SAT 100
[2024-09-25] MEDS: FUROSEMIDE 40 MG/4 ML VIAL IV ONE (13:00)
[2024-09-25 13:02] VITALS: BP 168/70; PULSE 73; RESP 18; TEMP 97.7; O2SAT 100
[2024-09-25 17:00] VITALS: BP 150/89; PULSE 56; RESP 16; TEMP 97.7; O2SAT 100
--- NOTE | 2024-09-25 17:18 | DVHPN2 ---
Subjective Patient denies any complaints, neurology has been seeing the patient and recommended to have Marinelli catheter but patient has been refusing. 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 Medications Current Medications Medications Dose Ordered Sig/Solis Route Start Time Stop Time Status Last Admin Dose Admin Ceftriaxone Sodium 50 ml @ 100 mls/hr Q24H IV 09/24/24 21:00 Amlodipine Besylate 5 mg DAILY PO 09/24/24 10:00 09/25/24 10:29 5 MG Atorvastatin Calcium 40 mg HS PO 09/24/24 22:00 Aspirin 81 mg DAILY PO 09/24/24 10:00 09/25/24 10:29 81 MG Diagnostic Test (Pha) 1 strip ACHS 09/24/24 07:00 09/25/24 17:14 1 STRIP Insulin Human Regular ACHS SC 09/24/24 07:00 09/25/24 11:36 3 UNITS Dextrose 50 ml UD PRN IV 09/24/24 04:00 Acetaminophen/ Hydrocodone Bitart 1 tab Q4HP PRN PO 09/24/24 04:00 Ondansetron HCl 4 mg Q4HP PRN IV 09/24/24 04:00 Acetaminophen 650 mg Q6HP PRN PO 09/24/24 04:00 09/25/24 02:52 650 MG Laboratory Results Laboratory Tests 09/25/24 03:38 Chemistry Test 09/25/24 03:38 Calcium Level 9.2 mg/dL (8.7-10.4) Urinalysis Test 09/24/24 02:26 Urine Color Colorless (Yellow) Urine Clarity Turbid (Clear) H Urine pH 6.5 (5.0-9.0) Urine Specific [place] 1.007 (1.001-1.035) Urine Protein 2+ (Negative) H Urine Ketones Negative (Negative) Urine Blood 2+ /uL (Negative) H Urine Nitrite Negative (Negative) Urine Bilirubin Negative (Negative) Urine Urobilinogen Normal mg/dL (Negative) Urine Leukocyte Esterase 3+ /uL (Negative) Urine RBC 14 /hpf (0 - 4) Urine WBC Clumps Present /hpf (None Seen) Urine Microscopic WBC 880 /HPF (0-5) H Urine Squamous Epithelial Cells Few /hpf (<5) Urine Bacteria None seen /hpf (None Seen) Urine Hyaline Casts Few /lpf (0 - 2) Urine Glucose Normal mg/dL (Normal) Microbiology Microbiology Date/Time Source Procedure Growth Status 09/24/24 16:43 Voided Urine Urine Culture - Preliminary Resulted 09/24/24 00:29 Blood Blood Culture - Preliminary NO GROWTH AFTER 24 HOURS OF INCUBATION. Resulted Assessment/Plan Assessment/Plan 73-year-old female with a known history of diabetes mellitus type 2 hypertension, history of CVA presented to the hospital with bilateral flank pain found to have nicotine 1. Bilateral obstructive uropathy 2. Bilateral hydronephrosis 3. Left perinephric stranding and left periureteral stranding likely inflammatory infectious 4. Urinary bladder mass 5. Hypertension 6. Noncompliance -continue antibiotics follow up Urology recommendations Plan discussed with: Patient Date of Service: Sep 25, 2024 Billing Provider: SALENA WALTERS MD Common Visit Codes: [id number] INP/OBS CARE(MOD) SALENA WALTERS MD Sep 25, 2024 17:18
--- NOTE | 2024-09-25 18:46 | DVHPN2 ---
Progress Note - Dictate Date Seen: Sep 25, 2024 Has the PT tested + for MRSA If YES, has PT been informed?: Yes Medical Necessity Reason Pt with a Central, PICC or Fol: No Subjective The patient is not cooperative and not participating in care. vital signs Vital Sign Date Time Temp Pulse Resp B/P (MAP) Pulse Ox O2 Delivery O2 Flow Rate FiO2 09/25/24 17:00 97.7 56 16 150/89 (109) 100 97.7 09/25/24 13:50 Room Air* 0 21 Total Intake and Output 09/24/24 09/24/24 09/25/24 15:00 23:00 07:00 Output Total 1100 ml 600 ml Balance -1100 ml -600 ml medications Current Medications Medications Dose Ordered Sig/Solis Route Start Time Stop Time Status Last Admin Dose Admin Ceftriaxone Sodium 50 ml @ 100 mls/hr Q24H IV 09/24/24 21:00 Amlodipine Besylate 5 mg DAILY PO 09/24/24 10:00 09/25/24 10:29 5 MG Atorvastatin Calcium 40 mg HS PO 09/24/24 22:00 Aspirin 81 mg DAILY PO 09/24/24 10:00 09/25/24 10:29 81 MG Diagnostic Test (Pha) 1 strip ACHS 09/24/24 07:00 09/25/24 17:14 1 STRIP Insulin Human Regular ACHS SC 09/24/24 07:00 09/25/24 11:36 3 UNITS Dextrose 50 ml UD PRN IV 09/24/24 04:00 Acetaminophen/ Hydrocodone Bitart 1 tab Q4HP PRN PO 09/24/24 04:00 Ondansetron HCl 4 mg Q4HP PRN IV 09/24/24 04:00 Acetaminophen 650 mg Q6HP PRN PO 09/24/24 04:00 09/25/24 02:52 650 MG objective Patient is awake but minimally communicative, providing limited verbal responses and avoids eye contact. No hughes catheter in place. Patient declined evaluation despite explanation of risks. laboratory and microbiology Laboratory Tests 09/25/24 03:38 Test 09/25/24 03:38 Range/Units Serum Glucose 199 H 74-106 mg/dL Assessment/Plan Patient is refusing recommendations and treatment including Hughes catheter. Urology signing off Problems(with codes): (1) Pyelonephritis (2) Type 2 diabetes mellitus with diabetic nephropathy (3) Hydronephrosis (4) Complicated UTI (urinary tract infection) (5) Bladder mass BRIAN RUIZ NP Sep 25, 2024 18:46
[2024-09-25 21:00] VITALS: BP 161/96; PULSE 62; RESP 18; TEMP 97.6; O2SAT 98
[2024-09-25] MEDS: CIPROFLOXACIN HCL 500 MG TAB PO SCH (22:00)
[2024-09-26 01:00] VITALS: BP 164/67; PULSE 50; RESP 15; TEMP 97.9; O2SAT 98
[2024-09-26 05:00] VITALS: BP 164/81; PULSE 69; RESP 16; TEMP 98.9; O2SAT 98
[2024-09-26 09:00] VITALS: BP 150/60; PULSE 60; RESP 16; TEMP 97.7; O2SAT 98
[2024-09-26 12:59] VITALS: BP 163/84; PULSE 61; RESP 18; TEMP 98.4; O2SAT 98
[2024-09-26 17:00] VITALS: BP 184/87; PULSE 66; RESP 18; TEMP 97.8; O2SAT 99
--- NOTE | 2024-09-26 17:51 | DVHDS2 ---
Discharge Summary Date of Admission Sep 24, 2024 at 04:00 Labs/Diagnostic Data: Laboratory Results Test 09/26/24 16:11 09/25/24 03:38 09/24/24 02:26 09/24/24 00:26 POC Glucose 69 mg/dl (70-106) White Blood Count 6.6 10^3/uL (4.4-10.8) Red Blood Count 3.73 10^6/uL (4.0-5.20) Hemoglobin 11.4 g/dL (12.2-16.2) Hematocrit 33.1 % (36.0-46.0) Mean Corpuscular Volume 88.7 fL (80.0-100.0) Mean Corpuscular Hemoglobin 30.4 pg (28.0-32.0) Mean Corpuscular Hemoglobin Concent 34.3 g/dL (32.0-36.0) Red Cell Distribution Width 14.1 % (11.8-14.3) Platelet Count 238 10^3/uL (140-450) Mean Platelet Volume 9.1 fL (6.9-10.8) Neutrophils (%) (Auto) 54.6 % (37.0-80.0) Lymphocytes (%) (Auto) 34.4 % (10.0-50.0) Monocytes (%) (Auto) 8.1 % (0.0-12.0) Eosinophils (%) (Auto) 1.9 % (0.0-7.0) Basophils (%) (Auto) 1.0 % (0.0-2.0) Neutrophils # (Auto) 3.6 10 ^3/uL (1.6-8.6) Lymphocytes # (Auto) 2.3 10 ^3/uL (0.4-5.4) Monocytes # (Auto) 0.5 10 ^3/uL (0-1.3) Eosinophils # (Auto) 0.1 10 ^3/uL (0-0.8) Basophils # (Auto) 0.1 10 ^3/uL (0-0.2) Nucleated Red Blood Cells 0.0 % Sodium Level 139 mmol/L (136-145) Potassium Level 3.6 mmol/L (3.5-5.1) Chloride Level 106 mmol/L (98-107) Carbon Dioxide Level 24 mmol/L (20-31) Anion Gap 9 (5-15) Blood Urea Nitrogen 18 mg/dL (9-23) Creatinine 1.50 mg/dL (0.550-1.02) Glomerular Filtration Rate Calc 36 mL/min (>90) BUN/Creatinine Ratio 12.0 (10.0-20.0) Serum Glucose 199 mg/dL (74-106) Calcium Level 9.2 mg/dL (8.7-10.4) Urine Color Colorless (Yellow) Urine Clarity Turbid (Clear) Urine pH 6.5 (5.0-9.0) Urine Specific [place] 1.007 (1.001-1.035) Urine Protein 2+ (Negative) Urine Ketones Negative (Negative) Urine Blood 2+ /uL (Negative) Urine Nitrite Negative (Negative) Urine Bilirubin Negative (Negative) Urine Urobilinogen Normal mg/dL (Negative) Urine Leukocyte Esterase 3+ /uL (Negative) Urine RBC 14 /hpf (0 - 4) Urine WBC Clumps Present /hpf (None Seen) Urine Microscopic WBC 880 /HPF (0-5) Urine Squamous Epithelial Cells Few /hpf (<5) Urine Bacteria None seen /hpf (None Seen) Urine Hyaline Casts Few /lpf (0 - 2) Urine Glucose Normal mg/dL (Normal) Lactic Acid Level 1.0 mmol/L (0.4-2.0) Total Bilirubin 0.3 mg/dL (0.2-1.0) Aspartate Amino Transferase (AST) 15 U/L (13-40) Alanine Aminotransferase (ALT) < 9 U/L (7-40) Alkaline Phosphatase 105 U/L (46-116) Total Protein 7.4 g/dL (5.7-8.2) Albumin 4.1 g/dL (3.2-4.8) Lipase 39 U/L (12-53) Other Laboratory Tests 09/25/24 03:38 Brief Hx & Hospital Course: 73-year-old female with a known history of diabetes mellitus type 2 hypertension, history of CVA presented to the hospital with bilateral flank pain found to have nicotine 1. Bilateral obstructive uropathy 2. Bilateral hydronephrosis 3. Left perinephric stranding and left periureteral stranding likely inflammatory infectious 4. Urinary bladder mass 5. Hypertension 6. Noncompliance -continue antibiotics follow up Urology recommendations Final Diagnosis/Problems List 73-year-old female with a known history of diabetes mellitus type 2 hypertension, history of CVA presented to the hospital with bilateral flank pain found to have nicotine 1. Bilateral obstructive uropathy 2. Bilateral hydronephrosis 3. Left perinephric stranding and left periureteral stranding likely inflammatory infectious 4. Urinary bladder mass 5. Hypertension 6. Noncompliance -continue antibiotics follow up Urology recommendations Discharge Instruct/Medications Scheduled Amlodipine Besylate (Amlodipine Besylate), 1 TAB PO DAILY, (Reported) Aspirin (Aspirin Low Dose), 1 TAB PO DAILY, (Reported) Atorvastatin Calcium (Atorvastatin Calcium), 40 MG PO DAILY, (Reported) Cefdinir (Cefdinir), 1 CAP PO BID Insulin Glargine (Basaglar Kwikpen), 27 UNITS SC HS, (Reported) Linezolid (Zyvox), 600 MG PO BID Lisinopril (Lisinopril), 1 TAB PO DAILY, (Reported) Metoprolol Succinate (Metoprolol Succinate Er), 1 TAB PO DAILY, (Reported) Discharge Statement: "Patient was advised to return to the ER or call 911 if any headaches, dizziness, shortness of breath, chest pain, abdominal pain, bleeding, fevers, or worsening of medical condition. Patient was counseled about treatment plan, medications, possible side effects, patientverbalized understanding. All questions were answered to the best of my ability. This discharge took greater then 30 minutes in planning, reviewing documentation, counseling the patient, and discussing with other team members." ASSESSMENT ASSESSMENT Assessment SALENA WALTERS MD Sep 26, 2024 17:51
[2024-09-26 21:00] VITALS: BP 146/83; PULSE 75; RESP 18; TEMP 97.8; O2SAT 98
[2024-09-27 01:00] VITALS: BP 153/77; PULSE 70; RESP 17; TEMP 98.2; O2SAT 64
[2024-09-27 05:00] VITALS: BP 147/70; PULSE 60; RESP 17; TEMP 98.1; O2SAT 98
[2024-09-27] MEDS: HYDROcodone-ACET 5/325MG TAB PO PRN (05:05)
[2024-09-27 09:00] VITALS: BP 163/70; PULSE 69; RESP 19; TEMP 97.5; O2SAT 99
[2024-09-27 13:00] VITALS: BP 142/91; PULSE 72; RESP 20; TEMP 98.9; O2SAT 99
--- NOTE | 2024-09-27 13:29 | DVHPN2 ---
Subjective Patient denies any complaints, urology recommended Marinelli catheter placement but patient refused. Changes from previous H/P or p: No Changes Objective Vitals Vital Signs Date Time Temp Pulse Resp B/P (MAP) Pulse Ox O2 Delivery O2 Flow Rate FiO2 09/27/24 13:00 98.9 72 20 142/91 (108) 99 98.9 09/26/24 20:00 Room Air* 0 21 Intake/Output Intake and Output 09/27/24 07:00 Intake Total 2220 ml Balance 2220 ml Intake Oral 2220 ml # Voids 9 Exam HEENT pupils are reactive Neck is supple CVS S1-S2 regular rate and rhythm nicotine rest with diminished BS in bases GI positive bowel sounds Extremity no edema [employer] no motor deficit Medications Current Medications Medications Dose Ordered Sig/Solis Route Start Time Stop Time Status Last Admin Dose Admin Amlodipine Besylate 5 mg DAILY PO 09/24/24 10:00 09/26/24 09:21 5 MG Atorvastatin Calcium 40 mg HS PO 09/24/24 22:00 Aspirin 81 mg DAILY PO 09/24/24 10:00 09/26/24 09:19 81 MG Diagnostic Test (Pha) 1 strip ACHS 09/24/24 07:00 09/27/24 05:38 1 STRIP Insulin Human Regular ACHS SC 09/24/24 07:00 09/26/24 10:53 3 UNITS Dextrose 50 ml UD PRN IV 09/24/24 04:00 Acetaminophen/ Hydrocodone Bitart 1 tab Q4HP PRN PO 09/24/24 04:00 09/27/24 05:05 1 TAB Ondansetron HCl 4 mg Q4HP PRN IV 09/24/24 04:00 Acetaminophen 650 mg Q6HP PRN PO 09/24/24 04:00 09/26/24 22:45 650 MG Ciprofloxacin 500 mg Q12HR PO 09/25/24 22:00 09/26/24 09:19 500 MG Laboratory Results Laboratory Tests 09/25/24 03:38 Urinalysis Test 09/24/24 02:26 Urine Color Colorless (Yellow) Urine Clarity Turbid (Clear) H Urine pH 6.5 (5.0-9.0) Urine Specific [place] 1.007 (1.001-1.035) Urine Protein 2+ (Negative) H Urine Ketones Negative (Negative) Urine Blood 2+ /uL (Negative) H Urine Nitrite Negative (Negative) Urine Bilirubin Negative (Negative) Urine Urobilinogen Normal mg/dL (Negative) Urine Leukocyte Esterase 3+ /uL (Negative) Urine RBC 14 /hpf (0 - 4) Urine WBC Clumps Present /hpf (None Seen) Urine Microscopic WBC 880 /HPF (0-5) H Urine Squamous Epithelial Cells Few /hpf (<5) Urine Bacteria None seen /hpf (None Seen) Urine Hyaline Casts Few /lpf (0 - 2) Urine Glucose Normal mg/dL (Normal) Microbiology Microbiology Date/Time Source Procedure Growth Status 09/24/24 16:43 Voided Urine Urine Culture - Final Complete 09/24/24 00:29 Blood Blood Culture - Preliminary NO GROWTH AFTER 72 HOURS OF INCUBATION. Resulted Assessment/Plan Assessment/Plan 73-year-old female with a known history of diabetes mellitus type 2 hypertension, history of CVA presented to the hospital with bilateral flank pain found to have nicotine 1. Bilateral obstructive uropathy 2. Bilateral hydronephrosis 3. Left perinephric stranding and left periureteral stranding likely inflammatory infectious 4. Urinary bladder mass 5. Hypertension 6. Noncompliance -continue antibiotics follow up Urology recommendations -urine cultures reviewed, physical therapy evaluation and treatment, discharge plan once cleared by Urology Plan discussed with: Patient Date of Service: Sep 26, 2024 Billing Provider: SALENA WALTERS MD Common Visit Codes: [id number] INP/OBS CARE(MOD) SALENA WALTERS MD Sep 27, 2024 13:29
[2024-09-27] MEDS ORDERED: CIPR500T4 PO (13:30)
--- NOTE | 2024-09-27 13:35 | DVHDS2 ---
Discharge Summary Date of Admission Sep 24, 2024 at 04:00 Date of Discharge: Sep 27, 2024 Labs/Diagnostic Data: Laboratory Results Test 09/27/24 05:34 09/25/24 03:38 09/24/24 02:26 09/24/24 00:26 POC Glucose 107 mg/dl (70-106) White Blood Count 6.6 10^3/uL (4.4-10.8) Red Blood Count 3.73 10^6/uL (4.0-5.20) Hemoglobin 11.4 g/dL (12.2-16.2) Hematocrit 33.1 % (36.0-46.0) Mean Corpuscular Volume 88.7 fL (80.0-100.0) Mean Corpuscular Hemoglobin 30.4 pg (28.0-32.0) Mean Corpuscular Hemoglobin Concent 34.3 g/dL (32.0-36.0) Red Cell Distribution Width 14.1 % (11.8-14.3) Platelet Count 238 10^3/uL (140-450) Mean Platelet Volume 9.1 fL (6.9-10.8) Neutrophils (%) (Auto) 54.6 % (37.0-80.0) Lymphocytes (%) (Auto) 34.4 % (10.0-50.0) Monocytes (%) (Auto) 8.1 % (0.0-12.0) Eosinophils (%) (Auto) 1.9 % (0.0-7.0) Basophils (%) (Auto) 1.0 % (0.0-2.0) Neutrophils # (Auto) 3.6 10 ^3/uL (1.6-8.6) Lymphocytes # (Auto) 2.3 10 ^3/uL (0.4-5.4) Monocytes # (Auto) 0.5 10 ^3/uL (0-1.3) Eosinophils # (Auto) 0.1 10 ^3/uL (0-0.8) Basophils # (Auto) 0.1 10 ^3/uL (0-0.2) Nucleated Red Blood Cells 0.0 % Sodium Level 139 mmol/L (136-145) Potassium Level 3.6 mmol/L (3.5-5.1) Chloride Level 106 mmol/L (98-107) Carbon Dioxide Level 24 mmol/L (20-31) Anion Gap 9 (5-15) Blood Urea Nitrogen 18 mg/dL (9-23) Creatinine 1.50 mg/dL (0.550-1.02) Glomerular Filtration Rate Calc 36 mL/min (>90) BUN/Creatinine Ratio 12.0 (10.0-20.0) Serum Glucose 199 mg/dL (74-106) Calcium Level 9.2 mg/dL (8.7-10.4) Urine Color Colorless (Yellow) Urine Clarity Turbid (Clear) Urine pH 6.5 (5.0-9.0) Urine Specific [place] 1.007 (1.001-1.035) Urine Protein 2+ (Negative) Urine Ketones Negative (Negative) Urine Blood 2+ /uL (Negative) Urine Nitrite Negative (Negative) Urine Bilirubin Negative (Negative) Urine Urobilinogen Normal mg/dL (Negative) Urine Leukocyte Esterase 3+ /uL (Negative) Urine RBC 14 /hpf (0 - 4) Urine WBC Clumps Present /hpf (None Seen) Urine Microscopic WBC 880 /HPF (0-5) Urine Squamous Epithelial Cells Few /hpf (<5) Urine Bacteria None seen /hpf (None Seen) Urine Hyaline Casts Few /lpf (0 - 2) Urine Glucose Normal mg/dL (Normal) Lactic Acid Level 1.0 mmol/L (0.4-2.0) Total Bilirubin 0.3 mg/dL (0.2-1.0) Aspartate Amino Transferase (AST) 15 U/L (13-40) Alanine Aminotransferase (ALT) < 9 U/L (7-40) Alkaline Phosphatase 105 U/L (46-116) Total Protein 7.4 g/dL (5.7-8.2) Albumin 4.1 g/dL (3.2-4.8) Lipase 39 U/L (12-53) Other Laboratory Tests 09/25/24 03:38 Brief Hx & Hospital Course: 73-year-old female with a known history of diabetes mellitus type 2 hypertension, history of CVA presented to the hospital with bilateral flank pain found to have bilateral obstructive uropathy as well as bilateral hydronephrosis with a left perinephric stranding and left perirectal stranding likely infectious. Also glipizide suspicious generally bladder mass could be cancer. Urology was consulted patient was recommended to have folic acid replacement but patient refused. Patient was given IV antibiotics which will be switched to p.o. antibiotics. Patient's hospital course was eventful for noncompliance as she did not follow up recommendation from Urology for her obstructive uropathy guarded requesting to go home. Urology signed out. Please follow up with the PCP and urology upon discharge. Plans dyspnea has been given. Condition at Discharge: Stable Final Diagnosis/Problems List 73-year-old female with a known history of diabetes mellitus type 2hypertension, history of CVA presented to the hospital with bilateralflank pain found to have nicotine1. Bilateral obstructive uropathy2. Bilateral hydronephrosis3. Left perinephric stranding and left periureteral stranding likelyinflammatory infectious4. Urinary bladder mass 5. Hypertension6. Noncompliance Discharge Disposition: Home SNF Discharge Will this Physician continue t: No Discharge Instruct/Medications Diet: Cardiac 2g Na,low cholest Diet comment: 1800 ADA diet Activity: No Restrictions, As Tolerated Follow Up/Referral: Please follow up with the PCP in one week Follow up with Dr. Jeremy Ramos urology in one week Medications: Cipro as prescribed. Scheduled Amlodipine Besylate (Amlodipine Besylate), 1 TAB PO DAILY, (Reported) Aspirin (Aspirin Low Dose), 1 TAB PO DAILY, (Reported) Atorvastatin Calcium (Atorvastatin Calcium), 40 MG PO DAILY, (Reported) Cefdinir (Cefdinir), 1 CAP PO BID Ciprofloxacin Hcl (Ciprofloxacin Hcl), 1 TAB PO BID Insulin Glargine (Basaglar Kwikpen), 27 UNITS SC HS, (Reported) Linezolid (Zyvox), 600 MG PO BID Lisinopril (Lisinopril), 1 TAB PO DAILY, (Reported) Metoprolol Succinate (Metoprolol Succinate Er), 1 TAB PO DAILY, (Reported) Discharge Statement: "Patient was advised to return to the ER or call 911 if any headaches, dizziness, shortness of breath, chest pain, abdominal pain, bleeding, fevers, or worsening of medical condition. Patient was counseled about treatment plan, medications, possible side effects, patientverbalized understanding. All questions were answered to the best of my ability. This discharge took greater then 30 minutes in planning, reviewing documentation, counseling the patient, and discussing with other team members." ASSESSMENT ASSESSMENT Assessment 73-year-old female with a known history of diabetes mellitus type 2hypertension, history of CVA presented to the hospital with bilateralflank pain found to have nicotine1. Bilateral obstructive uropathy2. Bilateral hydronephrosis3. Left perinephric stranding and left periureteral stranding likelyinflammatory infectious4. Urinary bladder mass 5. Hypertension6. Noncompliance Date of Service: Sep 27, 2024 Billing Provider: SALENA WALTERS MD Common Visit Codes: [id number]-[id number]/[id number] DISCH DAY >30min SALENA WALTERS MD Sep 27, 2024 13:35
== END 2024-09-27 15:01 | disposition home or self-care (01) | DRG 690 ==
LOC: EDBD 23:37 → ER 23:37 → OVERFLOW 09-24 04:00 → CENTRAL 09-25 04:05
PROVIDERS: ADMIT Internal Medicine; ATTEND Internal Medicine
DX: N13.6 Pyonephrosis (principal); N17.9 Acute kidney failure, unspecified; E11.21 Type 2 diabetes mellitus with diabetic nephropathy; N32.9 Bladder disorder, unspecified; Z91.199 Patient's noncompliance with other medical treatment and regimen due to unspecified reason; E11.22 Type 2 diabetes mellitus with diabetic chronic kidney disease; E78.5 Hyperlipidemia, unspecified; N18.9 Chronic kidney disease, unspecified; I12.9 Hypertensive chronic kidney disease with stage 1 through stage 4 chronic kidney disease, or unspecified chronic kidney disease; Z79.4 Long term (current) use of insulin; Z79.82 Long term (current) use of aspirin; Z79.899 Other long term (current) drug therapy; Z86.73 Personal history of transient ischemic attack (TIA), and cerebral infarction without residual deficits; Z87.440 Personal history of urinary (tract) infections; Z88.0 Allergy status to penicillin
CPT/HCPCS: 36415; 74176; 80048; 80053; 81001; 82962; 83605; 83690; 85025; 87040; 87086; 96365; G0378; J0696; J1815